=== PATIENT | female | born 1950 | race Caucasian/White ===

== ENCOUNTER → 2017-11-04 | Day surgery (SDC) | payer OTHER ==
--- NOTE | 2017-11-04 13:20 | RAD REPORT ---
EXAM DESCRIPTION: US - Breast Aspiration Inital - 11/04/2017 12:15 pm CLINICAL HISTORY: ICD R92.8. COMPARISON: October 21, 2017 ultrasound. FINDINGS: The prior ultrasound was reviewed. The risks, benefits and alternatives to the procedure were explained to the patient and informed cons ent obtained. Skin and subcutaneous tissues were anesthetized with lidocaine. Under sonographic guidance an 18-gaug e needle was placed into the 4 mm cystic mass within the upper left breast. A small amount of materia l was removed and sent to the laboratory. The mass completely collapsed during the aspiration. IMPRESSION: 1. A 4 mm cystic mass within the upper left breast collapsed during the aspiration. This indicates that it is cystic. The material was sent to the laboratory. This indicates that this almos t certainly represents a benign cyst. 2. It is recommended that the patient have an ultrasound in 6 months to evaluate the previously desc ribed 8 mm isoechoic structure within the upper-outer left breast which could not be confidently rep roduced on real-time imaging by myself and probably represents fibroglandular tissue rather than a ma ss.
== END ==
LOC: DS 10:22
PROVIDERS: ATTEND Family Medicine
DX: R92.8 Other abnormal and inconclusive findings on diagnostic imaging of breast (principal)
CPT/HCPCS: 19000; 88161

== ENCOUNTER 2022-03-09 10:39 | Emergency (ER) | payer OTHER ==
--- OUTSIDE RECORDS SUMMARY | 2022-03-09 10:44 | XMS REPORT | Continuity of Care Document ---
:1950 Author Organization [facility] t Address [address] [place] [address] Care Team Providers Name Role Phone Hill Pinon MD Primary Care Physician Akash Rivera MD Attending Clinician AKASH RIVERA Attending Clinician Unavailable YONATAN JAVIER Attending Clinician Unavailable Yonatan Javier NP Attending Clinician GAY LAKHANI Attending Clinician Unavailable Gay Lakhani MD Attending Clinician Doctor Unassigned, Byars Attending Clinician Unavailable ISMAEL GONZÁLES Attending Clinician Unavailable Ismael Gonzáles MD Attending Clinician Radha Jacome MD Attending Clinician Carlos Rahman Attending Clinician Unavailable Lab, Adc Fam Pob I Attending Clinician Unavailable Jose Goldsmith Attending Clinician Lg Brown MD Attending Clinician Rm, Adc Surg Spec Procedure Attending Clinician Unavailable ISMAEL GONZÁLES Admitting Clinician Unavailable Hill Pinon Admitting Clinician Unavailable Payers Payer Name Policy Type Policy Number Effective Date Expiration Date S ournick Problems Condition Condition Condition Status Onset Resolution Last Treating Co mments Source Name Details Category Date Date Treatment Clinician Date SBO (small SBO (small Disease Active 2019- U nivers bowel bowel 8-20 [place] n[place] 00 [facility] 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 00:00: Hospit a 00 l Cerebrovas Cerebrovas Disease Active 2017-0 M ethodi cular cular 6-13 st accident accident 00:00: Hospit a (CVA) (CVA) 00 l 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 6-06 st L4-L5 L4-L5 00:00: Hospita level level 00 l 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 5-11 st L3-L4 L3-L4 00:00: Hospita level level 00 l 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 00:00: Hosp tracee 00 l History of History of Disease Active 2017-0 M ethodi left left 5-11 st breast breast 00:00: Hospita biopsy biopsy 00 l H/O H/O Disease Active Methodi colostomy colostomy 5-11 st 00:00: Hospita 00 l Allergies, Adverse Reactions, Alerts Allergy Allergy Status Severity Reaction(s) Onset Inactive Treating Comm ents Source Name Type Date Date Clinician SULFAMET DRUG Active Hives Univers HOXAZOLE 9-02 ity of -TRIMETH 00:00: [place] OPRIM 00 Medical Branch Sulfamet Propensi Active Hives Univer s hoxazole ty to 9-02 ity of -Trimeth adverse 00:00: [place] oprim reaction 00 Medical s Branch Latex Propensi Active Rash 2020-0 Univers ty to 8-20 ity of adverse 00:00: [place] reaction 00 Medical s Branch Trimetho Propensi Active Unknown - 2020-0 Sulfameth Univers prim ty to See comments 8-20 oxaloe ity of adverse 00:00: [place] reaction 00 Medical s Branch LATEX DRUG Active Rash 2020-0 Univers INGREDI 8-20 ity of 00:00: [place] 00 Medical Branch TRIMETHO DRUG Active Unknown-Cmnt 2020-0 Un hien PRIM INGREDI 8-20 ity of 00:00: [place] 00 Medical Branch Phenerga Propensi Active Unknown - 2018- Uni vers n Plain ty to See comments 0-09 ity of adverse 00:00: [place] reaction 00 Medical s Branch PHENERGA DRUG Active Unknown-Cmnt 2019- Un hien N PLAIN 0-09 ity of 00:00: [place] 00 Medical Branch Honey Propensi Active Hives 2018-0 Methodi ty to 6-14 st adverse 00:00: Hospita reaction 00 l s to drug Adhesive Propensi Active 2018-0 Causes Method i Tape-Sasha ty to 5-[address] icones adverse 00:00: blister Hospita reaction 00 l s to drug Sulfamet Propensi Active Rash 2018-0 blister Metho di hoxazole ty to 5-10 st -Trimeth adverse 00:00: Hospita oprim reaction 00 l s to drug Latex Propensi Active 2018-0 blisters Method i ty to 5-10 st adverse 00:00: Hospita reaction 00 l s to drug Nitrofur Propensi Active Rash 2018-0 blister Metho di antoin ty to 5-10 st Monohyd/ adverse 00:00: Hospita M-Cryst reaction 00 l s to drug Nitrofur Propensi Active 2018-0 Method i antoin ty to 5-10 st Macrocry adverse 00:00: Hospita stal reaction 00 l s to drug Prometha Propensi Active GI 2018-0 Nausea Method i zine ty to Intolerance 5-[address] adverse 00:00: vomiting Hospita reaction 00 l s to drug prometha DA Active U 2012- [facility] zine HCl 07-06 [place] [facility]: d [facility] Sulfa DA Active U HIVES [facility] (Sulfona 07-06 [place] mide 00:00: d Antibiot 00 Medical [facility]) Center nitrofur DA Active U HIVES [facility] antoin 07-06 [place] 00:00: d 00 Medical Center trimetho DA Active U HIVES [facility] prim 07-06 [place] 00:00: d 00 Medical Center Adhesive DA Active U [facility] Bandage 07-06 [place] 00:00: d 00 [facility] Center latex DA Active U [facility] 07-06 [place] 00:00: d 00 Medical [place] prometha DA Active U SEVERE N/V [facility] zine HCl 07-06 [place] 00:00: d 00 Medical Center Adhesive DA Active U BLISTERS [facility] Bandage 07-06 [place] 00:00: d 00 Medical Center latex DA Active U BREAKS OUT [facility] 07-06 [place] 00:00: d 00 Medical Center Family History Family Member Diagnosis Comments Start Date Stop Date Source Natural mother Thyroid disease [facility] Maternal grandmother Heart disease [facility] Social History Social Habit Start Date Stop Date Quantity Comments Source History SDOH Yarsanism Alcohol Frequency Hospita l History SDKS Yarsanism Alcohol Std Hospital Drinks History SDKS Yarsanism Alcohol Binge Hospital Exposure to 2022-02-18 2022-02-28 Not sure [facility]-CoV-2 00:00:00 18:56:00 [facility] (event) Branch Tobacco use and 2020-03-23 2020-03-23 Smokeless tobacco Un iversity of exposure 00:00:00 00:00:00 non-user [facility] Alcohol intake 2017-12-10 2017-12-10 Current drinker Metho dist 00:00:00 00:00:00 of alcohol Hospital (finding) Alcohol Comment 2017-11-05 2017-11-05 rarely Yarsanism 00:00:00 00:00:00 Hospital Sex Assigned At [birth year] Yarsanism 00:00:00 00:00:00 Hospital Smoking Status Start Date Stop Date Source Never smoked tobacco [facility] Medications Ordered Filled Start Stop Current Ordering Indication Dosage Frequency Signature Comments Components Source Medication Medication Date Date Medication? Clinician (SIG) Name Name doxycycline 2021- Yes [id number] 100mg Take 1 Univers hyclate 100 02-28 [id number] tablet by ity of mg tablet 00:00: 04:59 mouth in [place] as 00 :00 the Medical morning Branch and 1 tablet in the evening. Do all this for 7 days. FENTanyl PF 2022-0 2022- No 50ug 50 mcg, Un hien (SUBLIMAZE 10-24 Intramuscu it y of (PF)) 18:30: 17:40 lar, ONCE, [place] injection 00 :00 1 dose, On Medi kory 50 mcg [place] Branch 10/24/21 at 1330, Routine methocarbam 2021- No 1000mg 1,000 mg, Univers oL 10-24 Oral, ity of (ROBAXIN) 18:30: 17:39 ONCE, 1 [place] tablet [place] :[place] dose, On Medical 1,000 mg [place] Branch 10/24/21 at 1330, DARIO ketorolac 2021- No 15mg 15 mg, Unive rs (TORADOL) 10-24 Intramuscu ity of injection 18:30: 17:40 lar, ONCE, [place] 15 mg 00 :00 1 dose, On Medical [place] Branch 10/24/21 at 1330, Routine
infantry weapons crewmember approving Restricted medication : YONATAN JAVIER gabapentin 2021- No 300mg 300 mg, Un hien (NEURONTIN) 10-24 Oral, ity of capsule 300 18:15: 17:39 ONCE, 1 [place] mg 00 :00 dose, On Medical [facility] Branch 10/24/21 at 1315, DARIO methocarbam 2021- No [id number] 750mg Take 1 Univers oL 750 mg 10-2406 tablet by ity of tablet 00:00: 04:59 mouth 4 [place] 00 :00 (four) Medical times Branch daily for 7 days. ibuprofen 2021- No [id number] 600mg Take 1 Univers (IBU) 600 10-24-06 tablet by ity of mg tablet 00:00: 04:59 mouth [place] 00 :00 every 6 Medical (six) Branch hours for 7 days. ondansetron 2021- No 4mg 4 mg, Slow Univers (ZOFRAN 10-18 IV Push, ity of (PF)) 14:45: 13:42 ONCE, 1 [place] injection 4 00 :00 dose, On Medi kory mg [facility] Branch 10/18/21 at 0945, DARIO ketorolac 2021- No 15mg 15 mg, Unive rs (TORADOL) 10-18 Slow IV ity of injection 14:45: 13:52 Push, [place] 15 mg 00 :00 ONCE, 1 Medical dose, On Branch 10/18/21 at 0945, Routine morpHINE 2021- No 4mg 4 mg, Slow Un hien injection 4 10-18 IV Push, ity of mg 14:45: 14:32 ONCE, 1 [place] 00 :00 dose, On Medical Fri Branch 10/18/21 at 0945, STAT methylPREDN 2021- No 40mg 40 mg, Uni vers ISolone sod 10-18 Intravenou i ty of succ 14:45: 13:46 s, ONCE, 1 [place] (SOLU-MEDRO 00 :00 dose, On Medi kory L (PF)) Fri Branch injection 10/18/21 at 40 mg 0945, STAT lidocaine 5 Yes [id number] Apply one Univers % (700 4-22 patch to ity of mg/patch) 00:00: most [place] patch 00 painful Medical area up to Branch 12 hours a day, as needed for pain. PHARMACIST : dispense one box lidocaine 5 Yes [id number] Apply one Univers % (700 4-22 patch to ity of mg/patch) 00:00: most [place] patch 00 painful Medical area up to Branch 12 hours a day, as needed for pain. PHARMACIST : dispense one box lidocaine 5 Yes [id number] Apply one Univers % (700 4-22 patch to ity of mg/patch) 00:00: most [place] patch 00 painful Medical area up to Branch 12 hours a day, as needed for pain. PHARMACIST : dispense one box predniSONE 2021-2021- No [id number] 40mg Take 2 Univers 20 mg 4- 04-30 tablets by ity of tablet 00:00: 04:59 mouth [place] 00 :00 daily for Medical 7 days. Branch predniSONE 2021-2021- No [id number] 40mg Take 2 Univers 20 mg 4- 04-30 tablets by ity of tablet 00:00: 04:59 mouth [place] 00 :00 daily for Medical 7 days. Branch cyclobenzap 2020-06 Yes [id number] 5mg Take 1 Univers rine 5 mg 0-07 tablet by ity o f tablet 00:00: mouth 3 [place] 00 (three) Medical times Branch daily as needed for Muscle Spasms. ibuprofen 2020-06 Yes [id number] 600mg Take 1 Univers (IBU) 600 0-07 tablet by ity o f mg tablet 00:00: mouth [place] 00 every 6 Medical (six) Branch hours as needed for Pain (scale 4-6). cyclobenzap 2020-06 Yes [id number] 5mg Take 1 Univers rine 5 mg 0-07 tablet by ity o f tablet 00:00: mouth 3 00 (three) Medical times Branch daily as needed for Muscle Spasms. ibuprofen 2020-06 Yes [id number] 600mg Take 1 Univers (IBU) 600 0-07 tablet by ity o f mg tablet 00:00: mouth [place] 00 every 6 Medical (six) Branch hours as needed for Pain (scale 4-6). cyclobenzap 2020-06 Yes [id number] 5mg Take 1 Univers rine 5 mg 0-07 tablet by ity o f tablet 00:00: mouth 3 (three) Medical times Branch daily as needed for Muscle Spasms. ibuprofen 2020-06 Yes [id number] 600mg Take 1 Univers (IBU) 600 0-07 tablet by ity o f mg tablet 00:00: mouth [place] 00 every 6 Medical (six) Branch hours as needed for Pain (scale 4-6). cyclobenzap 2020-06 Yes [id number] 5mg Take 1 Univers rine 5 mg 0-07 tablet by ity o f tablet 00:00: mouth 3 (three) Medical times Branch daily as needed for Muscle Spasms. ibuprofen 2020-06 Yes [id number] 600mg Take 1 Univers (IBU) 600 0-07 tablet by ity o f mg tablet 00:00: mouth [place] 00 every 6 Medical (six) Branch hours as needed for Pain (scale 4-6). cyclobenzap 2020-06 Yes [id number] 5mg Take 1 Univers rine 5 mg 0-07 tablet by ity o f tablet 00:00: mouth 3 00 (three) Medical times Branch daily as needed for Muscle Spasms. ibuprofen 2020-06 Yes [id number] 600mg Take 1 Univers (IBU) 600 0-07 tablet by ity o f mg tablet 00:00: mouth [place] 00 every 6 Medical (six) Branch hours as needed for Pain (scale 4-6). cyclobenzap 2020-06 Yes [id number] 5mg Take 1 Univers rine 5 mg 0-07 tablet by ity o f tablet 00:00: mouth 3 [place] 00 (three) Medical times Branch daily as needed for Muscle Spasms. cyclobenzap 2020-06 Yes [id number] 5mg Take 1 Univers rine 5 mg 0-07 tablet by ity o f tablet 00:00: mouth 3 [place] 00 (three) Medical times Branch daily as needed for Muscle Spasms. ibuprofen 2020-06- No [id number] 600mg Take 1 Univers (IBU) 600 0-07 04-28 tablet by ity of mg tablet 00:00: 00:00 mouth [place] 00 :00 every 6 Medical (six) Branch hours as needed for Pain (scale 4-6). levothyroxi 2019-06 Yes 125ug Take 125 U nivers ne 1-16 mcg by ity of (SYNTHROID) 14:19: mouth [place] 112 mcg 52 every Medical tablet morning. Branch levothyroxi 2019-06 Yes 125ug Take 125 U nivers ne 1-16 mcg by ity of (SYNTHROID) 14:19: mouth [place] 112 mcg 52 every Medical tablet morning. Branch levothyroxi 2019-06 Yes 125ug Take 125 U nivers ne 1-16 mcg by ity of (SYNTHROID) 14:19: mouth [place] 112 mcg 52 every Medical tablet morning. Branch levothyroxi 2019-06 Yes 125ug Take 125 U nivers ne 1-16 mcg by ity of (SYNTHROID) 14:19: mouth [place] 112 mcg 52 every Medical tablet morning. Branch levothyroxi 2019-06 Yes 125ug Take 125 U nivers ne 1-16 mcg by ity of (SYNTHROID) 14:19: mouth [place] 112 mcg 52 every Medical tablet morning. Branch levothyroxi 2019-06 Yes 125ug Take 125 U nivers ne 1-16 mcg by ity of (SYNTHROID) 14:19: mouth [place] 112 mcg 52 every Medical tablet morning. Branch levothyroxi 2019-06 Yes 125ug Take 125 U nivers ne 1-16 mcg by ity of (SYNTHROID) 14:19: mouth [place] 112 mcg 52 every Medical tablet morning. Branch butalbital- 2020-0 Yes [id number] 1{tbl} Take 1 Univers acetaminoph 9-29 tablet by ity of en-caff 00:00: mouth [place] 50-325-40 00 every 6 Medical mg tablet (six) Branch hours as needed for Pain (scale 7-10). ondansetron 2020-0 Yes [id number] 4mg Take 1 Univers (ZOFRAN 9-29 tablet by ity of ODT) 4 mg 00:00: mouth [place] disintegrat 00 every 8 Medic al ing tablet (eight) Branch hours as needed for Nausea and Vomiting (N/V). butalbital- 2020-0 Yes [id number] 1{tbl} Take 1 Univers acetaminoph 9-29 tablet by ity of en-caff 00:00: mouth [place] 50-325-40 00 every 6 Medical mg tablet (six) Branch hours as needed for Pain (scale 7-10). ondansetron 2020-0 Yes [id number] 4mg Take 1 Univers (ZOFRAN 9-29 tablet by ity of ODT) 4 mg 00:00: mouth [place] disintegrat 00 every 8 Medic al ing tablet (eight) Branch hours as needed for Nausea and Vomiting (N/V). butalbital- 2020-0 Yes [id number] 1{tbl} Take 1 Univers acetaminoph 9-29 tablet by ity of en-caff 00:00: mouth [place] 50-325-40 00 every 6 Medical mg tablet (six) Branch hours as needed for Pain (scale 7-10). ondansetron 2020-0 Yes [id number] 4mg Take 1 Univers (ZOFRAN 9-29 tablet by ity of ODT) 4 mg 00:00: mouth [place] disintegrat 00 every 8 Medic al ing tablet (eight) Branch hours as needed for Nausea and Vomiting (N/V). butalbital- 2020-0 Yes [id number] 1{tbl} Take 1 Univers acetaminoph 9-29 tablet by ity of en-caff 00:00: mouth [place] 50-325-40 00 every 6 Medical mg tablet (six) Branch hours as needed for Pain (scale 7-10). ondansetron 2020-0 Yes [id number] 4mg Take 1 Univers (ZOFRAN 9-29 tablet by ity of ODT) 4 mg 00:00: mouth [place] disintegrat 00 every 8 Medic al ing tablet (eight) Branch hours as needed for Nausea and Vomiting (N/V). butalbital- 2020-0 Yes [id number] 1{tbl} Take 1 Univers acetaminoph 9-29 tablet by ity of en-caff 00:00: mouth [place] 50-325-40 00 every 6 Medical mg tablet (six) Branch hours as needed for Pain (scale 7-10). ondansetron 2020-0 Yes [id number] 4mg Take 1 Univers (ZOFRAN 9-29 tablet by ity of ODT) 4 mg 00:00: mouth [place] disintegrat 00 every 8 Medic al ing tablet (eight) Branch hours as needed for Nausea and Vomiting (N/V). butalbital- 2020-0 Yes [id number] 1{tbl} Take 1 Univers acetaminoph 9-29 tablet by ity of en-caff 00:00: mouth [place] 50-325-40 00 every 6 Medical mg tablet (six) Branch hours as needed for Pain (scale 7-10). ondansetron 2020-0 Yes [id number] 4mg Take 1 Univers (ZOFRAN 9-29 tablet by ity of ODT) 4 mg 00:00: mouth [place] disintegrat 00 every 8 Medic al ing tablet (eight) Branch hours as needed for Nausea and Vomiting (N/V). butalbital- 2020-0 Yes [id number] 1{tbl} Take 1 Univers acetaminoph 9-29 tablet by ity of en-caff 00:00: mouth [place] 50-325-40 00 every 6 Medical mg tablet (six) Branch hours as needed for Pain (scale 7-10). ondansetron 2020-0 Yes [id number] 4mg Take 1 Univers (ZOFRAN 9-29 tablet by ity of ODT) 4 mg 00:00: mouth [place] disintegrat 00 every 8 Medic al ing tablet (eight) Branch hours as needed for Nausea and Vomiting (N/V). cyanocobala 2020-0 Yes 1000ug Inject Un hien min, 9-25 1,000 mcg ity of vitamin 14:22: as [place] B-12, (B-12 38 directed Medi kory COMPLIANCE) once every Br anch 1,000 month. mcg/mL Taken the injection beginning of the month zolpidem 10 2020-0 Yes 5mg Take 5 mg U nivers mg tablet 9-25 by mouth ity of 14:22: at bedtime [place] 38 as needed Medical for Branch Insomnia. cyanocobala 2020-0 Yes 1000ug Inject Un hien min, 9-25 1,000 mcg ity of vitamin 14:22: as [place] B-12, ( 38 directed Medi kory COMPLIANCE) once every Br anch 1,000 month. mcg/mL Taken the injection beginning of the month zolpidem 10 2020-0 Yes 5mg Take 5 mg U nivers mg tablet 9-25 by mouth ity of 14:22: at bedtime [place] as needed Medical for Branch Insomnia. cyanocobala 2020-0 Yes 1000ug Inject Un hien min, 9-25 1,000 mcg ity of vitamin 14:22: as [place] B-12, ( 38 directed Medi kory COMPLIANCE) once every Br anch 1,000 month. mcg/mL Taken the injection beginning of the month zolpidem 10 2020-0 Yes 5mg Take 5 mg U nivers mg tablet 9-25 by mouth ity of 14:22: at bedtime [place] as needed Medical for Branch Insomnia. cyanocobala 2020-0 Yes 1000ug Inject Un hien min, 9-25 1,000 mcg ity of vitamin 14:22: as [place] B-12, (B12 38 directed Medi kory COMPLIANCE) once every Br anch 1,000 month. mcg/mL Taken the injection beginning of the month zolpidem 10 2020-0 Yes 5mg Take 5 mg U nivers mg tablet 9-25 by mouth ity of 14:22: at bedtime [place] as needed Medical for Branch Insomnia. cyanocobala 2020-0 Yes 1000ug Inject Un hien min, 9-25 1,000 mcg ity of vitamin 14:22: as [place] B-12, (B-12 38 directed Medi kory COMPLIANCE) once every Br anch 1,000 month. mcg/mL Taken the injection beginning of the month zolpidem 10 2020-0 Yes 5mg Take 5 mg U nivers mg tablet 9-25 by mouth ity of 14:22: at bedtime [place] as needed Medical for Branch Insomnia. cyanocobala 2020-0 Yes 1000ug Inject Un hien min, 9-25 1,000 mcg ity of vitamin 14:22: as [place] B-12, (B 38 directed Medi kory COMPLIANCE) once every Br anch 1,000 month. mcg/mL Taken the injection beginning of the month zolpidem 10 2019-0 Yes 5mg Take 5 mg U nivers mg tablet 925 by mouth ity of 14:22: at bedtime [place] [id number] as needed Medical for Branch Insomnia. cyanocobala 2020-0 Yes 1000ug Inject Un hien min, 9-25 1,000 mcg ity of vitamin 14:22: as [place] B-12, (B12 38 directed Medi kory COMPLIANCE) once every Br anch 1,000 month. mcg/mL Taken the injection beginning of the month zolpidem 10 2019-0 Yes 5mg Take 5 mg U nivers mg tablet 25 by mouth ity of 14:22: at bedtime [place] [id number] as needed Medical for Branch Insomnia. phenazopyri 2020-0 Yes [id number] 200mg Take 2 Univers dine 9-17 tablets by ity of (PYRIDIUM) 00:00: mouth 3 [place] 100 mg 00 (three) Medical tablet times Branch daily. phenazopyri 2020-0 Yes 200mg Take 2 Univers dine 9-17 tablets by ity of (PYRIDIUM) 00:00: mouth 3 [place] 100 mg 00 (three) Medical tablet times Branch daily. phenazopyri 2020-0 Yes 200mg Take 2 Univers dine 9-17 tablets by ity of (PYRIDIUM) 00:00: mouth 3 [place] 100 mg 00 (three) Medical tablet times Branch daily. phenazopyri 2020-0 Yes 200mg Take 2 Univers dine 9-17 tablets by ity of (PYRIDIUM) 00:00: mouth 3 [place] 100 mg 00 (three) Medical tablet times Branch daily. phenazopyri 2020-0 Yes 200mg Take 2 Univers dine 9-17 tablets by ity of (PYRIDIUM) 00:00: mouth 3 [place] 100 mg 00 (three) Medical tablet times Branch daily. phenazopyri 2020-0 Yes 200mg Take 2 Univers dine 9-17 tablets by ity of (PYRIDIUM) 00:00: mouth 3 [place] 100 mg 00 (three) Medical tablet times [place] daily. phenazopyri 2020-0 Yes [id number] 200mg Take 2 Univers dine 9-17 tablets by ity of (PYRIDIUM) 00:00: mouth 3 [place] 100 mg 00 (three) Medical tablet times [place] daily. conjugated 2019-0 Yes [id number] 1g Insert 1 g Univers estrogens 9-14 into ity of 0.625 00:00: vagina [place] mg/gram 00 SEE-INSTRU Medica l vaginal CTIONS. Branch cream Apply small amount to vaginal opening and labia twice weekly conjugated 2019-0 Yes [id number] 1g Insert 1 g Univers estrogens 9-14 into ity of 0.625 00:00: vagina [place] mg/gram 00 SEE-INSTRU Medica l vaginal CTIONS. Branch cream Apply small amount to vaginal opening and labia twice weekly conjugated 2019-0 Yes [id number] 1g Insert 1 g Univers estrogens 9-14 into ity of 0.625 00:00: vagina [place] mg/gram 00 SEE-INSTRU Medica l vaginal CTIONS. Branch cream Apply small amount to vaginal opening and labia twice weekly conjugated 2019-0 Yes [id number] 1g Insert 1 g Univers estrogens 9-14 into ity of 0.625 00:00: vagina [place] mg/gram 00 SEE-INSTRU Medica l vaginal CTIONS. Branch cream Apply small amount to vaginal opening and labia twice weekly conjugated 2019-0 Yes [id number] 1g Insert 1 g Univers estrogens 9-14 into ity of 0.625 00:00: vagina [place] mg/gram 00 SEE-INSTRU Medica l vaginal CTIONS. Branch cream Apply small amount to vaginal opening and labia twice weekly conjugated 2019-0 Yes [id number] 1g Insert 1 g Univers estrogens 9-14 into ity of 0.625 00:00: vagina [place] mg/gram 00 SEE-INSTRU Medica l vaginal CTIONS. Branch cream Apply small amount to vaginal opening and labia twice weekly conjugated 2019-0 Yes [id number] 1g Insert 1 g Univers estrogens 9-14 into ity of 0.625 00:00: vagina [place] mg/gram 00 SEE-INSTRU Medica l vaginal CTIONS. Branch cream Apply small amount to vaginal opening and labia twice weekly levothyroxi 2017-0 Yes 112ug QD Take 112 M ethodi ne 6-[address] (SYNTHROID, 13:41: mouth Hospi ta LEVOXYL) 57 every l 112 mcg morning. tablet pramipexole 2018-0 Yes 1mg QD Take 1 mg M ethodi (MIRAPEX) 1 6-[address] MG tablet 13:41: nightly. Hosp tracee 57 l zolpidem 2018-0 Yes 5mg QD Take 5 mg Meth shea (AMBIEN) 5 6-[address] MG tablet 13:41: nightly as Ho spita 57 needed for l sleep. docusate 2018-0 Yes 1{tbl} Q.5D Take 1 Metho di sodium 6-[address] (STOOL 13:41: mouth 2 Hospita SOFTENER 57 (two) l ORAL) times a day. Lactobacill 2018-0 Yes 1{packe Q.5D Take 1 M ethodi us 6-15 t} packet by st acidoph-L.b 13:41: mouth 2 Hos joe ulgar 57 (two) l (LACTINEX) times a 100 million day. cell tablet multivitami 2018-0 Yes 1{tbl} QD Take 1 Me thodi n 6-[address] (THERAGRAN) 13:41: mouth Hospi ta tablet 57 daily. l levothyroxi 2018-0 Yes 112ug QD Take 112 M ethodi ne 6-[address] (SYNTHROID, 13:41: mouth Hospi ta LEVOXYL) 57 every l 112 mcg morning. tablet pramipexole 2018-0 Yes 1mg QD Take 1 mg M ethodi (MIRAPEX) 1 6-[address] MG tablet 13:41: nightly. Hosp tracee 57 l zolpidem 2018-0 Yes 5mg QD Take 5 mg Meth shea (AMBIEN) 5 6-[address] MG tablet 13:41: nightly as Ho spita 57 needed for l sleep. docusate 2018-0 Yes 1{tbl} Q.5D Take 1 Metho di sodium 6-[address] (STOOL 13:41: mouth 2 Hospita SOFTENER 57 (two) l ORAL) times a day. Lactobacill 2018-0 Yes 1{packe Q.5D Take 1 M ethodi us 6-15 t} packet by st acidoph-L.b 13:41: mouth 2 Hos joe ulgar 57 (two) l (LACTINEX) times a 100 million day. cell tablet multivitami Yes 1{tbl} QD Take 1 Me thodi n 6-[address] (THERAGRAN) 13:41: mouth Hospi ta tablet 57 daily. l gabapentin Yes 600mg QD Take 600 Me thodi (NEURONTIN) 5-[address] 600 mg 00:00: mouth Hospita tablet 00 nightly. l gabapentin Yes 600mg QD Take 600 Me thodi (NEURONTIN) 5-[address] 600 mg 00:00: mouth Hospita tablet 00 nightly. l Immunizations Ordered Filled Immunization Date Status Comments [facility] Immunization Name Name TDAP 2022-02-28 [facility] 00:00:00 [facility] Vital Signs Vital Name Observation Time Observation Value Comments Source Systolic blood 2022-02-28 23:57:00 135 mm[Hg] Univer sity [facility] Diastolic blood 2022-02-28 23:57:00 77 mm[Hg] [facility] 2022-02-28 23:57:00 101 /min General acute hospital Body temperature 2022-02-28 23:57:00 37 Suzi [facility] Respiratory rate 2022-02-28 23:57:00 18 /min [facility] Body height 2022-02-28 23:57:00 152.4 cm General acute hospital Body weight 2022-02-28 23:57:00 84.705 kg General acute hospital BMI 2022-02-28 23:57:00 36.47 kg/m2 General acute hospital Oxygen saturation in 2022-02-28 23:57:00 97 /min [facility] Arterial blood by [place] [facility] Children Pulse oximetry Branch Systolic blood 2021-10-24 18:34:00 147 mm[Hg] Univer sity [facility] Diastolic blood 2021-10-24 18:34:00 96 mm[Hg] [facility] 2021-10-24 18:34:00 73 /min General acute hospital Respiratory rate 2021-10-24 18:34:00 18 /min [facility] Oxygen saturation in 2021-10-24 18:34:00 98 /min University of Arterial blood by [place] [employer] Pulse oximetry Branch Body temperature 2021-10-24 16:09:00 36.83 Suzi [facility] Body height 2021-10-24 16:09:00 152.4 cm [facility] Body weight 2021-10-24 16:09:00 79.833 kg [facility] BMI 2021-10-24 16:09:00 34.37 kg/m2 [facility] Systolic blood 2021-10-18 14:00:00 169 mm[Hg] Univer sity [facility] Diastolic blood 2021-10-18 14:00:00 79 mm[Hg] Unive rsity [facility] Heart rate 2021-10-18 14:00:00 72 /min [facility] Respiratory rate 2021-10-18 14:00:00 12 /min [facility] Oxygen saturation in 2021-10-18 14:00:00 96 /min University of Arterial blood by [facility] Pulse oximetry Branch Body temperature 2021-10-18 12:43:00 35.83 Suzi [facility] Body height 2021-10-18 12:43:00 152.4 cm [facility] Body weight 2021-10-18 12:43:00 79.833 kg [facility] BMI 2021-10-18 12:43:00 34.37 kg/m2 [facility] Systolic blood 2021-05-10 17:34:00 172 mm[Hg] Univer [facility]ity [facility] Diastolic blood 2021-05-10 17:34:00 91 mm[Hg] Unive rsity [facility] Heart rate 2021-05-10 17:34:00 74 /min [facility] Body temperature 2021-05-10 17:33:00 36.67 Suzi [facility] Respiratory rate 2021-05-10 17:33:00 16 /min [facility] Body weight 2021-05-10 17:33:00 81.738 kg [facility] BMI 2021-05-10 17:33:00 35.19 kg/m2 Universi ty [facility] Oxygen saturation in 2021-05-10 17:33:00 99 /min University Arterial blood by [facility] Pulse oximetry Branch Procedures Procedure Date / Time Performed Performing Clinician Jerry e TDAP VACCINE, >11 YRS, 2022-03-01 00:02:47 [facility] URINALYSIS 2021-10-24 16:21:00 Singer [facility] o f [facility] LIPASE 2021-10-18 13:06:00 Gay Lakhani [facility] COMP. METABOLIC PANEL 2021-10-18 13:06:00 Donna Marlboro [facility] ([id number]) [facility] CBC WITH DIFF 2021-10-18 13:06:00 Gay Lakhani [facility] URINALYSIS 2021-10-18 13:06:00 Gay Lakhani [facility] NOTICE OF PRIVACY 2021-10-18 12:41:39 Doctor Unassigned, No [facility] PRACTICES Name [facility] CONSENT/REFUSAL FOR 2021-10-18 12:34:32 Doctor Unassigned, No [facility] DIAGNOSIS AND [facility] TREATMENT Plan of Care Planned Activity Planned Date Details Comments Source Future Scheduled 2022-02-26 HEPATITIS B VACCINES Met [facility] Test 03:19:32 (1 of 3 - 3-dose series) [code = HEPATITIS B VACCINES (1 of 3 - 3-dose series)] Future Scheduled 2022-02-26 COVID-19 VACCINE (#1) [facility] Test 03:19:32 [code = COVID-19 VACCINE (#1)] Future Scheduled 2022-02-26 BREAST CANCER [facility] Test 03:19:32 SCREENING [code = BREAST CANCER SCREENING] Future Scheduled 2022-02-26 COLONOSCOPY SCREENING [facility] Test 03:19:32 [code = COLONOSCOPY SCREENING] Future Scheduled 2022-02-26 SHINGLES VACCINES (1 Met [facility] Test 03:19:32 of 2) [code = SHINGLES VACCINES (1 of 2)] Future Scheduled 2022-02-26 65+ PNEUMOCOCCAL [facility] Test 03:19:32 VACCINE (1 - PCV) [code = 65+ PNEUMOCOCCAL VACCINE (1 - PCV)] Future Scheduled 2022-02-26 INFLUENZA [facility]ACCINE [facility] 03:19:32 [code = INFLUENZA VACCINE] Future Scheduled 2021-06-19 COVID-19 [facility]ACCINE (1) [facility] 02:39:11 [code = COVID-19 VACCINE (1)] Future Scheduled 2021-06-19 BREAST CANCER [facility] Test 02:39:11 SCREENING [code = BREAST CANCER SCREENING] Future Scheduled 2021-06-19 [facility] 02:39:11 [code = COLONOSCOPY SCREENING] Future Scheduled 2021-06-19 SHINGLES [facility]ACCINES (#1) [facility] Test 02:39:11 [code = SHINGLES VACCINES (#1)] Future Scheduled 2021-06-19 65+ [facility]OCOCCAL [facility] Test 02:39:11 VACCINE (1 of 1 - PPSV23) [code = 65+ PNEUMOCOCCAL VACCINE (1 of 1 - PPSV23)] Future Scheduled 2021-06-19 [facility]UENZA [facility]ACCINE [facility] Test 02:39:11 [code = INFLUENZA VACCINE] Encounters Start End Encounter Admission Attending Care Care Encounter Source Date/Time Date/Time Type Type Clinicians Facility Department ID 2022-02-28 2022-02-28 Urgent Miguel [facility] [id number] Univers 19:00:00 19:20:00 Care [facility] [id number] it y [facility] 4.2.7.2.686 Deep as JOSI?BLEA [phone] [address] MEDICAL OFFICE BUILDING 2022-02-28 2022-02-28 Outpatient R [facility] [id number] Univers 19:00:00 19:00:00 [id number] [facility] 2022-02-28 2022-02-28 [facility] [id number] Univers 19:00:00 19:00:00 AKASH [facility] 2021-10-24 2021-10-24 Emergency X YAYA [facility] ERT [id number] Univers 11:19:00 13:38:00 YONATAN [facility] 2021-10-24 2021-10-24 Emergency Drever, [facility] [id number] Univers 11:19:00 13:38:00 Yonatan BILLY [id number] ity [facility] 4.2.7.2.686 [facility] [id number] [place] [id number] Branch 2021-10-18 2021-10-18 Emergency X [facility] ERT [id number] Univers 07:39:00 10:02:00 GAY ity [facility] 2021-10-18 2021-10-18 Emergency [facility] [id number] Univers 07:39:00 10:02:00 Gay IBLLY [id number] ity of [facility] 4.2.7.2.686 [facility] [id number] [facility] 084 Branch 2021-10-18 2021-10-18 Orders Doctor RADHA [id number] Univers 00:00:00 00:00:00 Only Unassigned, BELEN [id number] [facility] 4.2.7.2.686 Deep [phone] [facility] 009 Branch 2021-10-15 2021-10-15 [facility]patient [facility] [id number] Univers 13:00:00 13:00:00 ISMAEL [id number] ity [facility] 2021-10-15 2021-10-15 Outpatient [facility] [id number] Univers 00:00:00 00:00:00 ISMAEL ity [facility] 2021-10-10 2021-10-10 Outpatient [facility] [id number] Univers 17:34:44 23:59:00 ISMAEL ity [facility] 2021-10-10 2021-10-10 [facility] [id number] Univers 17:34:44 23:59:00 Encounter Ismael S SPECIALTY [id number] ity of [facility] 4.2.7.2.686 [facility] AT [id number] Tn dical VICTORY [address] [facility] 2021-10-10 2021-10-10 Outpatient R ELIECER, [facility] [id number] 5P-20 Univers 00:00:00 00:00:00 ISMAEL [id number] ity of [facility] 2021-05-10 2021-05-10 [facility] 1.2.840.114 [id number] Univers 11:17:34 12:07:47 Visit Radha BILLY 350.1.13.10 i ty of [facility] 4.2.7.2.686 Lorraine villar PROFESSIO [id number] Tn dical NAL 188 [facility] 2020-07-24 2020-07-17 Inpatient STACY Colmenares MDAY [id number] [facility] 11:30:00 12:15:00 Carlos 82 [facility] 2020-06-26 2020-07-12 Inpatient JULIANE ColmenaresMN MDAY [id number] [facility] 06:44:00 20:09:21 Carlos 74 [facility] 2020-07-10 2020-07-10 Laboratory Lab, [facility] [id number] 16:18:49 16:38:49 Only Fam Pob I Health 350.1.13.10 Karthikeyan 4.2.7.2.686 Professio [phone] nal 044 Office [address] One 2020-05-16 2020-05-16 [facility] 1.2.840.114 [id number] 15:59:17 23:59:00 Encounter Tami Billy [id number] [place] 4.2.7.2.686 [place] [id number] 2020-05-14 2020-05-14 Office Lg Brown [facility] 1.2.840.114 [id number] 14:07:10 16:11:34 Visit , Pam Surg Spec Procedure Karthikeyan 3 50.1.13.10 Kimberley 4.2.7.2.686 Professio [id number] [facility] 204 Building 2020-05-14 2020-05-14 Telephone Kevin GAWAYNE 1.2.840.114 [id number] 00:00:00 00:00:00 Lg Billy 350.1.13.10 Kimberley 4.2.7.2.686 Profprashant [id number] [facility] 188 Building 2020-05-14 2020-05-14 Orders Doctor RADHA 1.2.840.114 [id number] 00:00:00 00:00:00 Only Unassigned, BELEN 350.1.13.10 [facility] 4.2.7.2.686 [id number] [id number] Results Test Description Test Time Test Comments Results Result Comments Source COMP. METABOLIC PANEL (67793) 2021-10-18 13:29:12 Test Item Value Reference Range Interpretation Comme nts NA (test code = 1747148505) 142 mmol/L 135-145 K (test code = 0637133064) 4.4 mmol/L 3.5-5.0 CL (test code = 1440243456) 103 mmol/L 98-108 CO2 TOTAL (test code = 29 mmol/L 23-31 2822225806) AGAP (test code = 4457115131) 2-16 BUN (test code = 9569652918) 22 mg/dL 7-23 GLUCOSE (test code = 5579592326) 104 mg/dL 70-110 CREATININE (test code = 0.79 mg/dL 0.50-1.04 9070359657) TOTAL BILI (test code = 0.4 mg/dL 0.1-1.3 5757589371) CALCIUM (test code = 3602314528) 9.3 mg/dL 8.6-10.6 T PROTEIN (test code = 7.0 g/dL 6.3-8.2 3720192774) ALBUMIN (test code = 2847065560) 4.5 g/dL 3.5-5.0 ALK PHOS (test code = 2904543507) 67 U/L 34-122 ALTv (test code = 1742-6) 13 U/L 5-35 AST(SGOT) (test code = 20 U/L 13-40 2802440639) eGFR (test code = 5938548363) mL/min/1.73m2 TICO (test code = TICO) Association of Glomerular Filtration Rate (GFR) and Staging of Kidney Disease* + +--------- + ----+| GFR (mL/min/1.73 m2) ?| With Kidney Damage ?| ?Without Kidney Damage+ +--- + +| ?>90 ?| ?Stage one ?| ? Normal ?+ +-------- + -----+| ?60-89 ?| ?Stage two ?| ? Decreased GFR ? + +--------- + ----+| ?30-59 ?| ?Stage three ?| ? Stage three ? + +--------- + ----+| ?15-29 ?| ?Stage four ? | ? Stage four ?+ +-------- + -----+| ?<15 (or dialysis) ? ?| ?Stage five ? | ? Stage five ?+ +-------- + -----+ *Each stage assumes the associated GFR level has been in effect for at least three months. ?Stages 1 to 5, with or without kidney disease, indicate chronic kidney disease. Notes: Determination of stages one and two (with eGFR >59mL/min/1.73 m2) requires estimation of kidney damage for at least three months as defined by structural or functional abnormalities of the kidney, manifested by either:Pathological abnormalities or Markers of kidney damage (including abnormalities in the composition of the blood or urine or abnormalities in imaging tests). [facility] 13:28:52 Test Item Value Reference Range Interpretation Comments LIPASE (test code = 5624820918) 61 U/L 0-220 Lab Interpretation (test code = Normal 08809-7) [facility] WITH [id number] 13:18:11 Test Item Value Reference Range Interpretation Comments WBC (test code = See_Comment [Automated message] 6690-2) The system [employer] generated this result transmitted ref erence range: 4.30 - 1 1.10 10*3/?L. The re ference range was not u sed to interpret this result as normal/abnor mal. RBC (test code = See_Comment [Automated message] 789-8) The system [employer] generated this result transmitted ref erence range: 3.93 - 5 .25 10*6/?L. The re ference range was not u sed to interpret this result as normal/abnor mal. HGB (test code = 13.8 g/dL 11.6-15.0 718-7) HCT (test code = 42.7 % 35.7-45.2 4544-3) MCV (test code = 92.8 fL 80.6-95.5 787-2) MCH (test code = 30.0 pg 25.9-32.8 785-6) MCHC (test code = 32.3 g/dL 31.6-35.1 786-4) RDW-SD (test code 46.3 fL 39.0-49.9 = 92999-6) RDW-CV (test code 13.5 % 12.0-15.5 = 788-0) PLT (test code = See_Comment [Automated message] 777-3) The system [employer] generated this result transmitted ref erence range: 166 - 35 8 10*3/?L. The re ference range was not u sed to interpret this result as normal/abnor mal. MPV (test code = 9.8 fL 9.5-12.9 32531-4) NRBC/100 WBC (test See_Comment [Automat ed message] code = 0830555351) The syste m which generated this result transmitted ref erence range: 0.0 - 10 .0 /100 WBCs. The refer ence range was not u sed to interpret this result as normal/abnor mal. NRBC x10^3 (test <0.01 See_Comment [Automated message] code = 1255468045) The syste m which generated this result transmitted ref erence range: 10*3/?L. The reference range was not used to interpr et this result as normal/abnormal . GRAN MAT (NEUT) % 68.4 % (test code = 770-8) IMM GRAN % (test 0.40 % code = 4660987465) LYMPH % (test code 19.0 % = 736-9) MONO % (test code 6.7 % = 5905-5) EOS % (test code = 4.8 % 713-8) BASO % (test code 0.7 % = 706-2) GRAN MAT 5.03 10*3/uL 1.88-7.09 x10^3(ANC) (test code = 7613858736) IMM GRAN x10^3 0.03 10*3/uL 0.00-0.06 (test code = 5671143707) LYMPH x10^3 (test 1.40 10*3/uL 1.32-3.29 code = 731-0) MONO x10^3 (test 0.49 10*3/uL 0.33-0.92 code = 742-7) EOS x10^3 (test 0.35 10*3/uL 0.03-0.39 code = 711-2) BASO x10^3 (test 0.05 10*3/uL 0.01-0.07 code = 704-7) [facility] METABOLIC [id number] 15:53:00 Test Item Value Reference Range Interpretation Comments SODIUM (test code = NA) 136 mmol/l 134.0-147.0 N POTASSIUM (test code = K) 3.6 mmol/L 3.6-5.2 N CHLORIDE (test code = CL) 102 mmol/l 98.0-107.0 N CARBON DIOXIDE (test code = CO2) 25.0 mmol/l 21.0-33.0 N ANION GAP (test code = GAP) 12.6 0-20 N GLUCOSE (test code = GLU) 130 mg/dl 70.0-110.0 H BLOOD UREA NITROGEN (test code = 26 mg/dl 7.0-18.0 H BUN) CREATININE (test code = CREAT) 0.79 mg/dL 0.60-1.30 N GFR NON BLACK (test code = 76 mL/min 70-80 N GFRNONBLACK) GFR BLACK (test code = GFRBLACK) 92 mL/min 85-97 N CALCIUM (test code = CA) 8.9 mg/dl 8.0-10.5 N COVID 19 Asymptomatic IH [id number] 15:45:00 Test Item Value Reference Range Interpretation Comments COVID 19 NEGATIVE NEGATIVE Negative result s should be Asymptomatic IH AG treated a s presumptive and (test code = ifinconsistent with COVNONPUIAG) clinical signs and symptoms, or ne cessaryfor patient managem ent, should be tested with an alternativemole cular assay. Negative results do not preclude [id number]-SaT-[id number] tion and should not be u sed as the sole basis forp atient management deci sions. Negative result s should beconsidered in the context of a pa triston's recent exposure s,history, presence of cli nical signs and symptoms consistentwith COVID-19. Specimen comments: If not done [facility] W/AUTO [id number] 15:43:00 Test Item Value Reference Range Interpretation Comments WHITE BLOOD CELL (test code = 7.4 K/mm3 4.5-11.0 N WBC) RED BLOOD CELL (test code = 4.36 M/mm3 3.80-5.20 N RBC) HEMOGLOBIN (test code = HGB) 12.4 gm/dL 12.0-16.0 N HEMATOCRIT (test code = HCT) 40.8 % 36.0-48.0 N MEAN CELL VOLUME (test code = 93.6 UM3 82.0-99.0 N MCV) MEAN CELL HGB (test code = MCH) 28.4 UUG 25.5-32.5 N MEAN CELL HGB CONCETRATION 30.4 gm/dL 29.0-35.5 N (test code = MCHC) RED CELL DISTRIBUTION WIDTH 14.4 % 11.5-15.0 N (test code = RDW) RED CELL DISTRIBUTION WIDTH SD 49.1 fL 34.8-50.2 N (test code = RDW-SD) PLATELET COUNT (test code = 285 K/mm3 150-400 N PLT) MEAN PLATELET VOLUME (test code 10.1 fl 7.4-10.4 N = MPV) NEUTROPHIL % (test code = NT%) 74.0 % 49.0-76.0 N IMMATURE GRANULOCYTE % (test 0.4 % 0.0-0.4 N code = IG%) LYMPHOCYTE % (test code = LY%) 13.4 % 23.0-38.0 L MONOCYTE % (test code = MO%) 6.8 % 1.0-10.0 N EOSINOPHIL % (test code = EO%) 4.9 % 1.0-5.0 N BASOPHIL % (test code = BA%) 0.5 % 0.0-1.0 N NUCLEATED RBC % (test code = 0.0 % 0.0-0.1 N NRBC%) NEUTROPHIL # (test code = NT#) 5.5 K/mm3 2.4-6.3 N IMMATURE GRANULOCYTE # (test 0.03 x10 3/uL 0.00-0.07 N code = IG#) LYMPHOCYTE # (test code = LY#) 1.0 K/mm3 1.2-4.0 L MONOCYTE # (test code = MO#) 0.5 K/mm3 0.0-0.6 N EOSINOPHIL # (test code = EO#) 0.4 K/MM3 0.0-0.7 N BASOPHIL # (test code = BA#) 0.0 K/mm3 0.0-0.2 N NUCLEATED RBC # (test code = 0.00 X10 3uL 0.00-0.01 N NRBC#) COVID 19 Asymptomatic IH [id number] 07:56:00 Test Item Value Reference Range Interpretation Comments COVID 19 Asymptomatic IH POSITIVE NEGATIVE A BY [id number] 06/26/20 AG (test code = 0756 COVNONPUIAG) Specimen comments: If not done this admissionComments to Shipping Hand: RAPID COVID"
[2022-03-09 11:36] LABS: Urine Blood Trace-intact (Negative); Urine Glucose Negative (Negative); Urine Protein Negative (Negative); Urine Specific Gravity >=1.030 (1.005-1.030); Urine pH 5.5 (5.0-7.0)
[2022-03-09] MEDS ORDERED: ONDANSETRON 4 MG/2 ML VIAL ONE (11:38)
[2022-03-09 11:55] LABS: Absolute Lymphocytes (CBC) 1.1 K/uL (0.7-4.9); Hematocrit 39.2 % (36.0-45.0); Lymphocytes % 16.3 % (15.3-44.8); MCV 86.6 fL (80-100); MPV 7.7 fL (7.6-11.3); RBC Red Blood Cell Count 4.52 M/uL (3.86-4.86)
[2022-03-09] MEDS ORDERED: NA CHLORIDE 0.9% 1,000 ML ONE (11:55)
[2022-03-09] MEDS ORDERED: MORPHINE 2 MG/ML SYR ONE (11:55)
[2022-03-09 12:08] LABS: Albumin 3.8 g/dL (3.4-5.0); Potassium 3.9 mmol/L (3.5-5.1)
[2022-03-09 12:14] LABS: Bilirubin Total 0.3 mg/dL (0.2-1.0); Protein, Total 7.1 g/dL (6.4-8.2); Troponin High Sensitivity 7.4 pg/mL (<58.9)
--- NOTE | 2022-03-09 12:40 | RAD REPORT ---
EXAM DESCRIPTION: CTAbdomen Pelvis W Contrast - 03/09/2022 12:26 pm CLINICAL HISTORY: Abdominal pain. df COMPARISON: Abdomen Pelvis W Contrast dated 11/24/2019; Abdomen Pelvis W Contrast dated 6; Abdomen Pelvis W Contrast dated 04/05/2016; CT ABD PELVIS W CONTRAST dated 11/29/2014 TECHNIQUE: Biphasic CT imaging of the abdomen and pelvis was performed with 100 ml non-ionic IV cont rast. All CT scans are performed using dose optimization technique as appropriate and may include automated exposure control or mA/KV adjustment according to patient size. FINDINGS: Mild linear atelectasis is seen in both lung bases.Small hiatal hernia. The liver, spleen, pancreas, adrenal glands and kidneys are within normal limits. No bowel obstruction, free air, free fluid or abscess. Mild sigmoid diverticulosis coli without diver ticulitis. The appendix is normal. Small fat containing umbilical hernia. No evidence of significant lymphadenopathy. Moderate lumbar degenerative changes with hardware in place. IMPRESSION: No acute intra-abdominal or pelvic finding. Scattered diverticulosis.
--- NOTE | 2022-03-09 12:46 | EDPHYS ---
Physician Documentation [facility] Name: Scarlet Simmons Age: 72 yrs Sex: Female : 1950 Arrival Date: 03/09/2022 Time: 10:43 Bed 19 Private MD: Hill Pinon ED Physician Meet Roth HPI: 03/09 11:33 This 72 yrs old Female presents to ER via Ambulatory with complaints of jl9 Abdominal Pain x weeks. Patient reports last BM 4 days ago .. 11:33 The patient presents with abdominal pain in the right upper quadrant, right lower jl9 quadrant. Onset: The symptoms/episode began/occurred 2 week(s) ago. The symptoms do not radiate. Associated signs and symptoms: Pertinent positives: nausea. The symptoms are described as dull. Modifying factors: The symptoms are alleviated by nothing, the symptoms are aggravated by nothing. Severity of pain: in the emergency department the pain is a 5 / 10. The patient has not experienced similar symptoms in the past. Historical: - Allergies: 11:13 Latex, Natural Rubber; jl7 11:13 Nitrofurantoin Macrocrystal; jl7 11:13 Phenergan; jl7 11:13 sulfamethoxazole-trimethoprim; jl7 - Home Meds: 11:13 levothyroxine oral [Active]; jl7 - PMHx: 11:13 Hypothyroidism; Intestinal rupture; Bowel obstruction; jl7 - PSHx: 11:13 Colostomy; Colostomy reversal; jl7 - Immunization history:: Client reports receiving the 1st dose of the Covid vaccine. - Social history:: Smoking status: Patient denies any tobacco usage or history of. ROS: 11:34 Constitutional: Negative for fever, chills, and weight loss, Eyes: Negative for injury, jl9 pain, redness, and discharge, ENT: Negative for injury, pain, and discharge, Neck: Negative for injury, pain, and swelling, Cardiovascular: Negative for chest pain, palpitations, and edema, Respiratory: Negative for shortness of breath, cough, wheezing, and pleuritic chest pain. 11:34 Back: Negative for injury and pain, : Negative for injury, bleeding, discharge, and swelling, MS/Extremity: Negative for injury and deformity, Skin: Negative for injury, rash, and discoloration, Neuro: Negative for headache, weakness, numbness, tingling, and seizure, Psych: Negative for depression, anxiety, suicide ideation, homicidal ideation, and hallucinations, Allergy/Immunology: Negative for hives, rash, and allergies, Endocrine: Negative for neck swelling, polydipsia, polyuria, polyphagia, and marked weight changes, Hematologic/Lymphatic: Negative for swollen nodes, abnormal bleeding, and unusual bruising. 11:34 Abdomen/GI: Positive for abdominal pain, nausea. Exam: 11:34 Constitutional: This is a well developed, well nourished patient who is awake, alert, jl9 and in no acute distress. Head/Face: Normocephalic, atraumatic. Eyes: Pupils equal round and reactive to light, extra-ocular motions intact. Lids and lashes normal. Conjunctiva and sclera are non-icteric and not injected. Cornea within normal limits. Periorbital areas with no swelling, redness, or edema. ENT: Mucous membranes moist. Neck: Trachea midline, no thyromegaly or masses palpated, and no cervical lymphadenopathy. Supple, full range of motion without nuchal rigidity, or vertebral point tenderness. No Meningismus. Chest/axilla: Normal chest wall appearance and motion. Nontender with no deformity. No lesions are appreciated. Cardiovascular: Regular rate and rhythm with a normal S1 and S2. No gallops, murmurs, or rubs. Normal PMI, no JVD. No pulse deficits. Respiratory: Lungs have equal breath sounds bilaterally, clear to auscultation and percussion. No rales, rhonchi or wheezes noted. No increased work of breathing, no retractions or nasal flaring. 11:34 Back: No spinal tenderness. No costovertebral tenderness. Full range of motion. Skin: Warm, dry with normal turgor. Normal color with no rashes, no lesions, and no evidence of cellulitis. MS/ Extremity: Pulses equal, no cyanosis. Neurovascular intact. Full, normal range of motion. Neuro: Awake and alert, GCS 15, oriented to person, place, time, and situation. Cranial nerves II-XII grossly intact. Motor strength 5/5 in all extremities. Sensory grossly intact. Cerebellar exam normal. Normal gait. Psych: Awake, alert, with orientation to person, place and time. Behavior, mood, and affect are within normal limits. 11:34 Abdomen/GI: Inspection: abdomen appears normal, Bowel sounds: normal, Palpation: mild abdominal tenderness, in all quadrants. Vital Signs: 11:11 BP 177 / 88; Pulse 72; Resp 17 S; Temp 97.7; Pulse Ox 100% on R/A; Weight 84.37 kg; jl7 Height 5 ft. (152.40 cm); Pain 8/10; 11:11 Body Mass Index 36.33 (84.37 kg, 152.40 cm) jl7 MDM: 11:12 Patient medically screened. jl9 11:34 Data reviewed: vital signs, nurses notes. jl9 12:45 Counseling: I had a detailed discussion with the patient and/or guardian regarding: the [facility] historical points, exam findings, and any diagnostic results supporting the discharge/admit diagnosis, lab results, radiology results, the need for outpatient follow up, to return to the emergency department if symptoms worsen or persist or if there are any questions or concerns that arise at home. Response to treatment: the patient's symptoms have markedly improved after treatment. 03/09 11:15 Order name: CBC with Diff; Complete Time: 12:14 [facility] 03/09 11:15 Order name: CMP; Complete Time: 12:14 [facility] 03/09 11:15 Order name: Lipase; Complete Time: 12:14 [facility] 03/09 11:15 Order name: CT Abd/Pelvis - IV Contrast Only; Complete Time: 12:40 03/09 11:15 Order name: Troponin High Sensitivity; Complete Time: 12:14 [facility] 03/09 11:36 Order name: Urine Dipstick-Ancillary; Complete Time: 12:14 [facility] 03/09 11:15 Order name: IV Saline Lock; Complete Time: 11:41 [facility] 03/09 11:15 Order name: Labs collected and sent; Complete Time: 11:41 [facility] 03/09 11:15 Order name: Urine Dipstick-Ancillary (obtain specimen); Complete Time: 11:35 [facility] 03/09 11:15 Order name: EKG; Complete Time: 11:16 [facility] Administered Medications: 11:41 Drug: Zofran (Ondansetron) 4 mg Route: IVP; Site: right antecubital; bm7 12:50 Follow up: Response: Nausea is decreased bm7 11:53 Drug: morphine 2 mg Route: IVP; Infused Over: 4 mins; Site: right antecubital; bm7 12:50 Follow up: Response: Pain is decreased bm7 11:53 Drug: NS 0.9% 1000 ml Route: IV; Rate: 1000 ml; Site: right antecubital; bm7 12:50 Follow up: IV Status: Completed infusion; IV Intake: 1000ml bm7 Disposition Summary: 03/09/22 12:46 Discharge Ordered Location: Home jl9 Condition: Stable jl9 Diagnosis - Diverticulosis of intestine, part unspecified, without perforation or abscess with jl9 bleeding Followup: jl9 - With: Private Physician - When: 1 - 2 days - Reason: Recheck today's complaints, Continuance of care, Re-evaluation by your physician Discharge Instructions: - Discharge Summary Sheet jl9 - Diverticulosis jl9 Forms: - Medication Reconciliation Form jl9 - Thank You Letter jl9 - Antibiotic Education jl9 - Prescription Opioid Use jl9 Signatures: Dispatcher [employer] Aimee Chamberlain RN RN jl7 Shoshana Morales RN RN bm7 Tahir Salas jl9
--- NOTE | 2022-03-09 12:46 | ER ---
Nurse's Notes [facility] Name: Scarlet Simmons Age: 72 yrs Sex: Female : 1950 Arrival Date: 03/09/2022 Time: 10:43 Bed 19 Private MD: Hill Pinon Diagnosis: Diverticulosis of intestine, part unspecified, without perforation or abscess with bleeding Presentation: 03/09 11:11 Chief complaint: Patient states: Ride sided abdominal pain, radiates along lower jl7 abdomen x 2 weeks, reports nausea, last BM 4 days ago, denies symptoms. Coronavirus screen: At this time, the client does not indicate any symptoms associated with coronavirus-19. Ebola Screen: No symptoms or risks identified at this time. Initial Sepsis Screen: Does the patient meet any 2 criteria? No. Patient's initial sepsis screen is negative. Does the patient have a suspected source of infection? No. Patient's initial sepsis screen is negative. Risk Assessment: Do you want to hurt yourself or someone else? Patient reports no desire to harm self or others. Onset of symptoms was February 23, 2022. 11:11 Method Of Arrival: Ambulatory [facility] 11:11 Acuity: YESY 3 jl7 Triage Assessment: 11:13 General: Appears in no apparent distress. uncomfortable, Behavior is calm, cooperative, jl7 appropriate for age. Pain: Complains of pain in anterior aspect of right lateral abdomen Pain radiates to right lower quadrant and left lower quadrant Pain currently is 8 out of 10 on a pain scale. GI: Reports lower abdominal pain, nausea, Patient currently denies flatulence. : Denies burning with urination, pain with urination. Historical: - Allergies: 11:13 Latex, Natural Rubber; jl7 11:13 Nitrofurantoin Macrocrystal; jl7 11:13 Phenergan; jl7 11:13 sulfamethoxazole-trimethoprim; jl7 - Home Meds: 11:13 levothyroxine oral [Active]; jl7 - PMHx: 11:13 Hypothyroidism; Intestinal rupture; Bowel obstruction; jl7 - PSHx: 11:13 Colostomy; Colostomy reversal; jl7 - Immunization history:: Client reports receiving the 1st dose of the Covid vaccine. - Social history:: Smoking status: Patient denies any tobacco usage or history of. Screenin:32 Abuse screen: Denies threats or abuse. Nutritional screening: No deficits noted. bm7 Tuberculosis screening: No symptoms or risk factors identified. Fall Risk None identified. Assessment: 12:32 Reassessment: Patient and/or family updated on plan of care and expected duration. Pain bm7 level reassessed. Patient is alert, oriented x 3, equal unlabored respirations, skin warm/dry/pink. Vital Signs: 11:11 BP 177 / 88; Pulse 72; Resp 17 S; Temp 97.7; Pulse Ox 100% on R/A; Weight 84.37 kg; jl7 Height 5 ft. (152.40 cm); Pain 8/10; 11:11 Body Mass Index 36.33 (84.37 kg, 152.40 cm) jl7 ED Course: 10:43 Patient arrived in ED. mr 10:43 Hill Pinon MD is Private Physician. mr 11:12 [facility] jl9 11:12 Meet Roth MD is Attending Physician. jl9 11:13 Triage completed. jl7 11:13 Arm band placed on right wrist. jl7 11:23 Kalina Asencio, ELOY is Primary Nurse. ko1 12:28 CT Abd/Pelvis - IV Contrast Only In Process Unspecified. EDMS 12:32 No apparent distress. Resting quietly. Awaiting lab results. bm7 12:32 Patient has correct armband on for positive identification. Placed in gown. Bed in low bm7 position. Call light in reach. Side rails up X 1. Adult w/ patient. Client placed on continuous cardiac and pulse oximetry monitoring. NIBP monitoring applied. Door closed. Noise minimized. Lights dimmed. Warm blanket given. Assisted to bathroom. 12:32 Initial lab(s) drawn, by me, sent to lab. Urine collected: clean catch specimen, clear. bm7 Inserted saline lock: 20 gauge in right antecubital area, using aseptic technique. Blood collected. 12:49 No provider procedures requiring assistance completed. Patient did not have IV access bm7 during this emergency room visit. Administered Medications: 11:41 Drug: Zofran (Ondansetron) 4 mg Route: IVP; Site: right antecubital; bm7 12:50 Follow up: Response: Nausea is decreased bm7 11:53 Drug: morphine 2 mg Route: IVP; Infused Over: 4 mins; Site: right antecubital; bm7 12:50 Follow up: Response: Pain is decreased bm7 11:53 Drug: NS 0.9% 1000 ml Route: IV; Rate: 1000 ml; Site: right antecubital; bm7 12:50 Follow up: IV Status: Completed infusion; IV Intake: 1000ml bm7 Medication: 12:32 VIS not applicable for this client. bm7 Intake: 12:50 IV: 1000ml; Total: 1000ml. bm7 Outcome: 12:46 Discharge ordered by . lm 13:12 Discharged to home ambulatory, with family. bm7 13:12 Condition: improved 13:12 Discharge instructions given to patient, family, Instructed on discharge instructions, follow up and referral plans. Demonstrated understanding of instructions, follow-up care. 13:12 Patient left the ED. bm7 Signatures: Dispatcher [employer] EDDE Ese Obrien Jahala, RN RN [email or web address] Shoshana Morales RN RN bm7 Linares, John jl9 Kalina Asencio RN RN ko1
[2022-03-09 13:18] VITALS: BP 177/88; TEMP 97.7; O2SAT 100
== END 2022-03-09 13:12 | disposition home or self-care (01) ==
LOC: ER 10:39
DX: K57.31 Diverticulosis of large intestine without perforation or abscess with bleeding (principal); E03.9 Hypothyroidism, unspecified; Z88.2 Allergy status to sulfonamides; Z88.8 Allergy status to other drugs, medicaments and biological substances; Z91.040 Latex allergy status; Z91.048 Other nonmedicinal substance allergy status
CPT/HCPCS: 96361; 85025; 36415; 81003; 84484; 83690; 80053; 74177; 96375; 96374; 99284; Q9967; J2270; J7030; J2405

== ENCOUNTER 2022-11-23 10:57 | Emergency (ER) | payer OTHER ==
--- OUTSIDE RECORDS SUMMARY | 2022-11-23 11:05 | XMS REPORT | Continuity of Care Document ---
:1950 Author Organization [facility] t Address [address] [facility] [place] [address] Care Team Providers Name Role Phone Zi LEONARD [place] Primary Care Physician MARCELA VELEZ Attending Clinician Unavailable ESE TERAN Attending Clinician Unavailable Ese Teran DO Attending Clinician Doctor Unassigned, [place] Attending Clinician Unavailable Marcela Velez MD Attending Clinician 2, [facility] Attending Clinician Unavailable Mirza Duong PA-C Attending Clinician MIRZA DUONG Attending Clinician Unavailable NAJMA POWELL Attending Clinician Unavailable Najma Vogel Attending Clinician Abby Rivera MD Attending Clinician ABBY RIVERA Attending Clinician Unavailable ROSLYN JAVIER Attending Clinician Unavailable Roslyn Javier NP Attending Clinician GAY LAKHANI Attending Clinician Unavailable Donna LEONARD, Gay Contreras Attending Clinician ISMAEL GONZÁLES Attending Clinician Unavailable Ismael Gonzáles MD Attending Clinician Radha Jacome MD Attending Clinician RADHA JACOME Attending Clinician Unavailable Jeff Contreras Attending Clinician Shona LYONS, Ashleigh Tadeo Attending Clinician Unavailable Provider, [facility] Attending Clinician Unavailable Only, Ang Db Test Attending Clinician Unavailable ATSH JONES Attending Clinician Unavailable Carlos Rahman Attending Clinician Unavailable Lab, [facility] Fam Pob I Attending Clinician Unavailable GEETA ORTEGA Attending Clinician Unavailable Javier Goldsmith Attending Clinician JAVIER GOLDSMITH Attending Clinician Unavailable Lg Brown MD Attending Clinician , [facility] Surg Spec Procedure Attending Clinician Unavailable LG BROWN Attending Clinician Unavailable ESE TERAN Admitting Clinician Unavailable MIRZA DUONG Admitting Clinician Unavailable NAJMA POWELL Admitting Clinician Unavailable ISMAEL GONZÁLES Admitting Clinician Unavailable [place] Pin[place] Admitting Clinician Unavailable Payers Payer Name Policy Type Policy Number Effective Date Expiration Date S abimbola [facility] MEDIC[facility] [id number] 2018 COMPLETE CHOICE 00:00:00 SINCERE [id number] 2021 00:00:00 [id number] 2014 00:00:00 DERRICK/JOSLYN ROBLERO [id number] 2022 ADV CHOICE PPO 00:00:00 Problems Condition Condition Condition Status Onset Resolution [...] a 00 l Cerebrovas Cerebrovas Disease Active M ethodi cular cular 6-13 st accident accident 00:00: Hospit a (CVA) (CVA) 00 l 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 6-06 st L4-L5 L4-L5 00:00: Hospita level level 00 l 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 5-11 st L3-L4 L3-L4 00:00: Hospita level level 00 l 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 00:00: Hosp tracee 00 l History of History of Disease Active 2017-0 M ethodi left left 5-11 st breast breast 00:00: Hospita biopsy biopsy 00 l H/O H/O Disease Active 0 Methodi colostomy colostomy 5-11 st 00:00: Hospita 00 l Allergies, Adverse Reactions, Alerts Allergy Allergy Status Severity Reaction(s) Onset Inactive Treating Comm ents Source Name Type Date Date Clinician SULFAMET DRUG Active Hives Univers HOXAZOLE 9 ity of -TRIMETH 00:00: [place] OPRIM 00 Medical Branch Sulfamet Propensi Active Hives 0 Univer s hoxazole ty to 9-02 ity [...] Medical Branch Phenerga Propensi Active Unknown - 2019- Uni vers n Plain ty to See comments 0-09 ity of adverse 00:00: [place] reaction 00 Medical s Branch PHENERGA DRUG Active Unknown-Cmnt 2019- Un hien N PLAIN 0-09 ity of 00:00: [place] 00 Medical Branch Honey Propensi Active Hives 2018-0 Univers ty to 6-14 ity of adverse 00:00: [place] reaction 00 Medical s Branch HONEY DRUG Active Hives 2018-0 Univers INGREDI 6-14 ity of 00:00: [place] 00 Medical Branch Honey Propensi Active Hives 2018-0 Methodi ty to 6-14 st adverse 00:00: Hospita reaction 00 l s to drug Adhesive Propensi Active Other - See 2018-0 Causes U nivers Tape-Sasha ty to comments 5-11 skin ity of icones adverse 00:00: blister [place] reaction 00 Medical s Branch ADHESIVE DRUG Active Other-Cmnt [id number] Univ ers TAPE-SASHA 5-11 ity of ICONES 00:00: [place] 00 Medical Branch Adhesive Propensi Active 2018-0 Causes Method i Tape-Sasha ty to 5-[address] icones adverse 00:00: blister Hospita reaction 00 l s to drug Nitrofur Propensi Active Other - See 2018-0 U nivers antoin ty to comments 5-10 ity of Macrocry adverse 00:00: [place] stalline reaction 00 Medica l s Branch NITROFUR DRUG Active Other-Cmnt [id number] Univ ers ANTOIN INGREDI 5-10 ity of MACROCRY 00:00: [place] STALLINE 00 Medical Branch Sulfamet Propensi Active Rash 2018-0 blister Metho [...] s to drug Prometha Propensi Active GI 2017-0 Nausea Method i zine ty to Intolerance 5-[address] adverse 00:00: vomiting Hospita reaction 00 l s to drug prometha DA Active U 2012- [facility] zine HCl 07-06 [facility] Sulfa DA Active U HIVES [facility] (Sulfona 07-06 [facility] mide 00:00: d Antibiot 00 Medical ics) Center nitrofur DA Active U HIVES [facility] antoin 07-06 [facility] 00[facility]: d [facility] trimetho DA Active U HIVES [facility] prim 07-06 [facility] 00:[facility]: d [facility] Adhesive DA Active U [facility] Bandage 07-06 [facility] 00:[facility]: d [facility] latex DA Active U [facility] 07-06 [facility] 00:[facility]: d [facility] prometha DA Active U SEVERE N/V [facility] zine HCl 07-06 [facility] 00:00: d 00 [facility] Adhesive DA Active U BLISTERS [facility] Bandage 07-06 [facility] 00:[facility]: d [facility] latex DA Active U BREAKS OUT [facility] 07-06 [facility] 00:[facility]: d [facility] Family History Family Member Diagnosis Comments Start Date Stop Date Source Natural mother Thyroid disease [facility] Maternal grandmother Heart disease [facility] Social History Social Habit Start Date Stop Date Quantity Comments Source Gender identity [facility] Sexual orientation [facility] History SDOH [facility] Alcohol Frequency Hospita l History SDOH [facility] Alcohol Std Drinks Hospit al History SDOH [facility] Alcohol Binge Hospital Exposure to 2022-11-08 2022-11-18 Not sure [facility] SARS-CoV-2 (event) 00:00:00 18:43:00 [facility] Tobacco use and 2022-07-31 2022-07-31 Smokeless Universit y of exposure 00:00:00 00:00:00 tobacco non-user [facility] History of Social 2018-05-10 2018-05-[address] function 00:00:00 00:00:00 Hospital Alcohol intake 2017-12-10 2017-12-10 Current drinker [facility] 00:00:00 00:00:00 of alcohol Hospital (finding) Alcohol Comment 2017-11-05 2017-11-05 rarely [facility] 00:00:[facility] 00:[facility]:00 Hospital Sex Assigned At [birth year] [facility] 00:00:00 00:00:00 Hospital Smoking Status Start Date Stop Date Source Never smoked tobacco [facility] Medications Ordered Filled Start Stop Current Ordering Indication Dosage Frequency Signature Comments Components Source Medication Medication Date Date Medication? Clinician (SIG) Name Name iopamidol 2022- No [id number] 70mL 70 mL, Univers (ISOVUE 11-19 Intravenou ity o f 370-500 mL) 03:45: 02:46 s, ONCE, 1 [place] injection 00 :00 dose, On Medica l 70 mL Tue Branch 11/18/22 at 2245, Routine NaCl 0.9% 2022- No 1000mL at 999 Uni vers (NS) bolus 11-19 mL/hr, ity of infusion 03:30: 04:53 1,000 mL, Deep as 1,000 mL 00 :00 IV Medical Infusion, Branch ONCE, 1 dose, On [facility] 11/18/22 at 2230, DARIO cefTRIAXone 2022- No 1000mg 1,000 mg, Univers (ROCEPHIN) 11-19 IV ity of 1,000 mg in 02:45: 03:25 Piggyback, [place] NaCl 0.9% 00 :00 ONCE, 1 Medical (NS) 100 mL dose, On Bran ch MINI-BAG [facility] 11/18/22 at 2145, Administer over 30 Minutes, 100 mL
Reas on for Anti-Infec tive: Documented Infection< br>Documen jack Infection Site: Urine<br&g t;Duration of Therapy: 7 days ketorolac 2022- No 15mg 15 mg, Unive rs (TORADOL) 11-19 Slow IV ity of injection 01:00: 01:55 Push, [place] 15 mg 00 :00 ONCE, 1 Medical dose, On Branch [facility] 11/18/22 at 2000, Routine maalox:diph 2022- No 15mL 15 mL, Uni vers enhydrAMINE 11-19 Oral, ity of :lidocaine 00:15: 01:55 ONCE, 1 Deep as 2 % viscous 00 :00 dose, On Medi kory 1:1:1 Thu Branch ([facility] 11/18/22 at [facility]) 1915, oral Routine suspension 15 mL maalox:diph 2022- Yes [id number] 10mL Swish and Univers enhydrAMINE 11-18 swallow 10 it y of :lidocaine 00:00: mL as [place] 2 % viscous 00 needed for Me dical 1:1:1 Oral Branch mucositis. cefpodoxime 2022-0 2022- Yes [id number] 100mg Take 1 Univers 100 mg 5-23 05-31 tablet by ity of tablet 00:00: 04:59 mouth in [place] 00 :00 the Medical morning Branch and 1 tablet in the evening. Do all this for 7 days. clobetasoL 2023-0 Yes [id number] Apply to Univers 0.05 % 5-02 area(s) 2 ity of ointment 00:00: (two) [place] 00 times Medical daily. Branch Apply to affected area twice a day for 4 weeks and then 3 times (M/W/F) a week clobetasoL 2023-0 Yes [id number] Apply to Univers 0.05 % 5-02 area(s) 2 ity of ointment 00:00: (two) [place] 00 times Medical daily. Branch Apply to affected area twice a day for 4 weeks and then 3 times (M/W/F) a week clobetasoL 3-0 Yes [id number] Apply to Univers 0.05 % 5-02 area(s) 2 ity of ointment 00:00: (two) [place] 00 times Medical daily. Branch Apply to affected area twice a day for 4 weeks and then 3 times (M/W/) a week clobetasoL 2023-0 Yes [id number] Apply to Univers 0.05 % 5-02 area(s) 2 ity of ointment 00:00: (two) [place] 00 times Medical daily. Branch Apply to affected area twice a day for 4 weeks and then 3 times (M/W/F) a week clobetasoL 2023-0 Yes [id number] Apply to Univers 0.05 % 5-02 area(s) 2 ity of ointment 00:00: (two) [place] 00 times Medical daily. Branch Apply to affected area twice a day for 4 weeks and then 3 times (M/W/F) a week clobetasoL 2023-0 Yes [id number] Apply to Univers 0.05 % 5-02 area(s) 2 ity of ointment 00:00: (two) [place] 00 times Medical daily. Branch Apply to affected area twice a day for 4 weeks and then 3 times (M/W/F) a week PARoxetine 2023-0 Yes [id number] 10mg Take 1 Univers (PAXIL) 10 3-08 tablet by [place]y of mg tablet 00:00[place] the Medical morning. Branch PARoxetine 3-0 Yes [id number] 10mg Take 1 Univers (PAXIL) 10 3-08 tablet by ity of mg tablet 00:00: [place] 00 the Medical morning. Branch PARoxetine 3-0 Yes [id number] 10mg Take 1 Univers (PAXIL) 10 3-08 tablet by ity of mg tablet 00:00: [place] 00 the Medical morning. Branch PARoxetine 3-0 Yes [id number] 10mg Take 1 Univers (PAXIL) 10 3-08 tablet by ity of mg tablet 00:00: [place] 00 the Medical morning. Branch PARoxetine 3-0 Yes [id number] 10mg Take 1 Univers (PAXIL) 10 3-08 tablet by ity of mg tablet 00:00: [place] 00 the Medical morning. Branch PARoxetine 3-0 Yes [id number] 10mg Take 1 Univers (PAXIL) 10 3-08 tablet by ity of mg tablet 00:00: [place] 00 the Medical morning. Branch PARoxetine 3-0 Yes [id number] 10mg Take 1 Univers (PAXIL) 10 3-08 tablet by ity of mg tablet 00:00: [place] 00 the Medical morning. Branch PARoxetine 3-0 Yes [id number] 10mg Take 1 Univers (PAXIL) 10 3-08 tablet by ity of mg tablet 00:00: [place] 00 the Medical morning. Branch PARoxetine 3-0 Yes [id number] 10mg Take 1 Univers (PAXIL) 10 3-08 tablet by ity of mg tablet 00:00: [place] 00 the Medical morning. Branch PARoxetine 3-0 Yes [id number] 10mg Take 1 Univers (PAXIL) 10 3-08 tablet by ity of mg tablet 00:00: [place] 00 the Medical morning. Branch PARoxetine 2023-0 Yes [id number] 10mg Take 1 Univers (PAXIL) 10 3-08 tablet by ity of mg tablet 00:00: [place] 00 the Medical morning. Branch amoxicillin 2022-0 Yes [id number] 1{tbl} Take 1 Univers -clavulanat 2-16 tablet by ity of e 00:00: mouth in [place] (AUGMENTIN) 00 the Medical 875-125 mg morning Branch per tablet and 1 tablet in the evening. amoxicillin 2022-0 Yes [id number] 1{tbl} Take 1 Univers -clavulanat 2-16 tablet by ity of e 00:00: mouth in [place] (AUGMENTIN) 00 the Medical 875-125 mg morning Branch per tablet and 1 tablet in the evening. amoxicillin 2022-0 Yes [id number] 1{tbl} Take 1 Univers -clavulanat 2-16 tablet by ity of e 00:00: mouth in [place] (AUGMENTIN) 00 the Medical 875-125 mg morning Branch per tablet and 1 tablet in the evening. amoxicillin 2022-0 Yes [id number] 1{tbl} Take 1 Univers -clavulanat 2-16 tablet by ity of e 00:00: mouth in [place] (AUGMENTIN) 00 the Medical 875-125 mg morning Branch per tablet and 1 tablet in the evening. amoxicillin 2022-0 Yes [id number] 1{tbl} Take 1 Univers -clavulanat 2-16 tablet by ity of e 00:00: mouth in [place] (AUGMENTIN) 00 the Medical 875-125 mg morning Branch per tablet and 1 tablet in the evening. amoxicillin 2022-0 Yes [id number] 1{tbl} Take 1 Univers -clavulanat 2-16 tablet by ity of e 00:00: mouth in [place] (AUGMENTIN) 00 the Medical 875-125 mg morning Branch per tablet and 1 tablet in the evening. amoxicillin 2022-0 Yes [id number] 1{tbl} Take 1 Univers -clavulanat 2-16 tablet by ity of e 00:00: mouth in [place] (AUGMENTIN) 00 the Medical 875-125 mg morning Branch per tablet and 1 tablet in the evening. amoxicillin 2022-0 Yes [id number] 1{tbl} Take 1 Univers -clavulanat 2-16 tablet by ity of e 00:00: mouth in [place] (AUGMENTIN) 00 the Medical 875-125 mg morning Branch per tablet and 1 tablet in the evening. amoxicillin 2022-0 Yes [id number] 1{tbl} Take 1 Univers -clavulanat 2-16 tablet by ity of e 00:00: mouth in [place] (AUGMENTIN) 00 the Medical 875-125 mg morning Branch per tablet and 1 tablet in the evening. amoxicillin Yes [id number] 1{tbl} Take 1 Univers -clavulanat 2-16 tablet by ity of e 00:00: mouth in [place] (AUGMENTIN) 00 the Medical 875-125 mg morning Branch per tablet and 1 tablet in the evening. amoxicillin Yes [id number] 1{tbl} Take 1 Univers -clavulanat 2-16 tablet by ity of e 00:00: mouth in [place] (AUGMENTIN) 00 the Medical 875-125 mg morning Branch per tablet and 1 tablet in the evening. amoxicillin 2022- No [id number] 1{tbl} Take 1 Univers -clavulanat 2-16 05-02 tablet by it y of e 00:00: 00:00 mouth in [place] (AUGMENTIN) 00 :00 the Medical 875-125 mg morning Branch per tablet and 1 tablet in the evening. amoxicillin 2022- No [id number] 1{tbl} Take 1 Univers -clavulanat 2-16 05-02 tablet by it y of e 00:00: 00:00 mouth in [place] (AUGMENTIN) 00 :00 the Medical 875-125 mg morning Branch per tablet and 1 tablet in the evening. cyanocobala Yes 1000ug Inject Un hien min, 2-03 1,000 mcg ity of vitamin 12:11: as [place] B-12, (B-12 06 directed Medi kory COMPLIANCE) once every Br anch 1,000 month. mcg/mL Taken the injection beginning of the month cyanocobala Yes 1000ug Inject Un hien min, 2-03 1,000 mcg ity of vitamin 12:11: as [place] B-12, (B-12 06 directed Medi kory COMPLIANCE) once every Br anch ,000 month. mcg/mL Taken the injection beginning of the month cyanocobala Yes 1000ug Inject Un hien min, 2-03 1,000 mcg ity of vitamin 12:11: as [place] B-12, (B-12 06 directed Medi kory COMPLIANCE) once every Br anch 1,000 month. mcg/mL Taken the injection beginning of the month cyanocobala Yes 1000ug Inject Un hien min, 2-03 1,000 mcg ity of vitamin 12:11: as [place] B-12, (B-12 06 directed Medi kory COMPLIANCE) once every Br anch 1,000 month. mcg/mL Taken the injection beginning of the month cyanocobala Yes 1000ug Inject Un hien min, 2-03 1,000 mcg ity of vitamin 12:11: as [place] B-12, (B-12 06 directed Medi kory COMPLIANCE) once every Br anch 1,000 month. mcg/mL Taken the injection beginning of the month cyanocobala Yes 1000ug Inject Un hien min, 2-03 1,000 mcg ity of vitamin 12:11: as [place] B-12, (B-12 06 directed Medi kory COMPLIANCE) once every Br anch 1,000 month. mcg/mL Taken the injection beginning of the month cyanocobala Yes 1000ug Inject Un hien min, 2-03 1,000 mcg ity of vitamin 12:11: as [place] B-12, (B-12 06 directed Medi kory COMPLIANCE) once every Br anch 1,000 month. mcg/mL Taken the injection beginning of the month cyanocobala Yes 1000ug Inject Un hien min, 2-03 1,000 mcg ity of vitamin 12:11: as [place] B-12, (B-12 06 directed Medi kory COMPLIANCE) once every Br anch 1,000 month. mcg/mL Taken the injection beginning of the month cyanocobala Yes 1000ug Inject Un hien min, 2-03 1,000 mcg ity of vitamin 12:11: as [place] B-12, (B-12 06 directed Medi kory COMPLIANCE) once every Br anch 1,000 month. mcg/mL Taken the injection beginning of the month cyanocobala Yes 1000ug Inject Un hien min, 2-03 1,000 mcg ity of vitamin 12:11: as [place] B-12, (B-12 06 directed Medi kory COMPLIANCE) once every Br anch 1,000 month. mcg/mL Taken the injection beginning of the month cyanocobala Yes 1000ug Inject Un hien min, 2-03 1,000 mcg ity of vitamin 12:11: as [place] B-12, (B-12 06 directed Medi kory COMPLIANCE) once every Br anch ,000 month. mcg/mL Taken the injection beginning of the month cyanocobala Yes 1000ug Inject Un hien min, 2-03 1,000 mcg ity of vitamin 12:11: as [place] B-12, (B-12 06 directed Medi kory COMPLIANCE) once every Br anch ,000 month. mcg/mL Taken the injection beginning of the month cyanocobala Yes 1000ug Inject Un hien min, 2-03 1,000 mcg ity of vitamin 12:11: as [place] B-12, (B-12 06 directed Medi kory COMPLIANCE) once every Br anch ,000 month. mcg/mL Taken the injection beginning of the month cyanocobala Yes 1000ug Inject Un hien min, 2-03 1,000 mcg ity of vitamin 12:11: as [place] B-12, (B-12 06 directed Medi kory COMPLIANCE) once every Br anch ,000 month. mcg/mL Taken the injection beginning of the month cyanocobala Yes 1000ug Inject Un hien min, 2-03 1,000 mcg ity of vitamin 12:11: as [place] B-12, (B-12 06 directed Medi kory COMPLIANCE) once every Br anch ,000 month. mcg/mL Taken the injection beginning of the month cyanocobala Yes 1000ug Inject Un hien min, 2-03 1,000 mcg ity of vitamin 12:11: as [place] B-12, (B-12 06 directed Medi kory COMPLIANCE) once every Br anch 1,000 month. mcg/mL Taken the injection beginning of the month cyanocobala Yes 1000ug Inject Un hien min, 2-03 1,000 mcg ity of vitamin 12:11: as [place] B-12, (B-12 06 directed Medi kory COMPLIANCE) once every Br anch 1,000 month. mcg/mL Taken the injection beginning of the month cyanocobala Yes 1000ug Inject Un hien min, 2-03 1,000 mcg ity of vitamin 12:11: as [place] B-12, (B-12 06 directed Medi kory COMPLIANCE) once every Br anch 1,000 month. mcg/mL Taken the injection beginning of the month cyanocobala Yes 1000ug Inject Un hien min, 2-03 1,000 mcg ity of vitamin 12:11: as [place] B-12, (B-12 06 directed Medi kory COMPLIANCE) once every Br anch ,000 month. mcg/mL Taken the injection beginning of the month cyanocobala Yes 1000ug Inject Un hien min, 2-03 1,000 mcg ity of vitamin 12:11: as [place] B-12, (B-12 06 directed Medi kory COMPLIANCE) once every Br anch ,000 month. mcg/mL Taken the injection beginning of the month cyanocobala Yes 1000ug Inject Un hien min, 2-03 1,000 mcg ity of vitamin 12:11: as [place] B-12, (B-12 06 directed Medi kory COMPLIANCE) once every Br anch ,000 month. mcg/mL Taken the injection beginning of the month cyanocobala Yes 1000ug Inject Un hien min, 2-03 1,000 mcg ity of vitamin 12:11: as [place] B-12, (B-12 06 directed Medi kory COMPLIANCE) once every Br anch ,000 month. mcg/mL Taken the injection beginning of the month cyanocobala Yes 1000ug Inject Un hien min, 2-03 1,000 mcg ity of vitamin 12:11: as [place] B-12, (B-12 06 directed Medi kory COMPLIANCE) once every Br anch ,000 month. mcg/mL Taken the injection beginning of the month cyanocobala Yes 1000ug Inject Un hien min, 2-03 1,000 mcg ity of vitamin 12:11: as [place] B-12, (B-12 06 directed Medi kory COMPLIANCE) once every Br anch ,000 month. mcg/mL Taken the injection beginning of the month levothyroxi 2022- No 125ug Take 125 Univers ne 08-01 02-03 mcg by ity of (SYNTHROID) 12:10: 00:00 [place] 112 mcg 35 :00 every Medical tablet morning. Branch levothyroxi 2022- No 125ug Take 125 Univers ne 08-01 02-03 mcg by ity of (SYNTHROID) 12:10: 00:00 [place] 112 mcg 35 :00 every Medical tablet morning. Branch gabapentin 2023-0 Yes Take by Univ ers ER 300 mg 2-02 mouth ity of tablet, 11:47: daily. [place] extended 25 Medical release 24 Branch hr gabapentin 2023-0 Yes Take by Univ ers ER 300 mg 2-02 mouth ity of tablet, 11:47: daily. [place] extended 25 Medical release 24 Branch hr gabapentin 2023-0 Yes Take by Univ ers ER 300 mg 2-02 mouth ity of tablet, 11:47: daily. [place] extended 25 Medical release 24 Branch hr gabapentin 2023-0 Yes Take by Univ ers ER 300 mg 2-02 mouth ity of tablet, 11:47: daily. [place] extended 25 Medical release 24 Branch hr gabapentin 2023-0 Yes Take by Univ ers ER 300 mg 2-02 mouth ity of tablet, 11:47: daily. [place] extended 25 Medical release 24 Branch hr gabapentin 2023-0 Yes Take by Univ ers ER 300 mg 2-02 mouth ity of tablet, 11:47: daily. [place] extended 25 Medical release 24 Branch hr gabapentin 2023-0 Yes Take by Univ ers ER 300 mg 2-02 mouth ity of tablet, 11:47: daily. [place] extended 25 Medical release 24 Branch hr gabapentin 2023-0 Yes Take by Univ ers ER 300 mg 2-02 mouth ity of tablet, 11:47: daily. [place] extended 25 Medical release 24 Branch hr gabapentin 2023-0 Yes Take by Univ ers ER 300 mg 2-02 mouth ity of tablet, 11:47: daily. [place] extended 25 Medical release 24 Branch hr gabapentin 2023-0 Yes Take by Univ ers ER 300 mg 2-02 mouth ity of tablet, 11:47: daily. [place] extended 25 Medical release 24 Branch hr gabapentin 2023-0 Yes Take by Univ ers ER 300 mg 2-02 mouth ity of tablet, 11:47: daily. [place] extended 25 Medical release 24 Branch hr gabapentin 2023-0 Yes Take by Univ ers ER 300 mg 2-02 mouth ity of tablet, 11:47: daily. [place] extended 25 Medical release 24 Branch hr gabapentin 2023-0 Yes Take by Univ ers ER 300 mg 2-02 mouth ity of tablet, 11:47: daily. [place] extended 25 Medical release 24 Branch hr gabapentin 2023-0 Yes Take by Univ ers ER 300 mg 2-02 mouth ity of tablet, 11:47: daily. [place] extended 25 Medical release 24 Branch hr gabapentin 2023-0 Yes Take by Univ ers ER 300 mg 2-02 mouth ity of tablet, 11:47: daily. [place] extended 25 Medical release 24 Branch hr gabapentin 2023-0 Yes Take by Univ ers ER 300 mg 2-02 mouth ity of tablet, 11:47: daily. [place] extended 25 Medical release 24 Branch hr gabapentin 2023-0 Yes Take by Univ ers ER 300 mg 2-02 mouth ity of tablet, 11:47: daily. [place] extended 25 Medical release 24 Branch hr gabapentin 2023-0 Yes Take by Univ ers ER 300 mg 2-02 mouth ity of tablet, 11:47: daily. [place] extended 25 Medical release 24 Branch hr gabapentin 2023-0 Yes Take by Univ ers ER 300 mg 2-02 mouth ity of tablet, 11:47: daily. [place] extended 25 Medical release 24 Branch hr gabapentin 2023-0 Yes Take by Univ ers ER 300 mg 2-02 mouth ity of tablet, 11:47: daily. [place] extended 25 Medical release 24 Branch hr gabapentin 2023-0 Yes Take by Univ ers ER 300 mg 2-02 mouth ity of tablet, 11:47: daily. [place] extended 25 Medical release 24 Branch hr gabapentin 2023-0 Yes Take by Univ ers ER 300 mg 2-02 mouth ity of tablet, 11:47: daily. [place] extended 25 Medical release 24 Branch hr gabapentin 2023-0 Yes Take by Univ ers ER 300 mg 2-02 mouth ity of tablet, 11:47: daily. [place] extended 25 Medical release 24 Branch hr gabapentin 2023-0 Yes Take by Univ ers ER 300 mg 2-02 mouth ity of tablet, 11:47: daily. [place] extended 25 Medical release 24 Branch hr gabapentin 2023-0 Yes Take by Univ ers ER 300 mg 2-02 mouth ity of tablet, 11:47: daily. [place] extended 25 Medical release 24 Branch hr gabapentin 2023-0 Yes Take by Univ ers ER 300 mg 2-02 mouth ity of tablet, 11:47: daily. [place] extended 25 Medical release 24 Branch hr cyanocobala 3-0 Yes 1000ug Inject Un hien min, 2-02 1,000 mcg ity of vitamin 11:19: as [place] B-12, (B-12 36 directed Medi kory COMPLIANCE) once every Br anch 1,000 month. mcg/mL Taken the injection beginning of the month cyanocobala 2022-0 Yes 1000ug Inject Un hien min, 2 1,000 mcg ity of vitamin 11:19: as [place] B-12, (12 36 directed Medi kory COMPLIANCE) once every Br anch 1,000 month. mcg/mL Taken the injection beginning of the month PARoxetine 2022-0 Yes [id number] 10mg Take 1 Univers (PAXIL) 10 2-02 tablet by ity of mg tablet 00:00: [place] 00 the Medical morning. Branch PARoxetine 2022-0 Yes [id number] 10mg Take 1 [facility] (PAXIL) 10 2-02 tablet by [facility] mg tablet 00:[place]: [place] the Medical morning. Branch PARoxetine 2022-0 Yes [id number] 10mg Take 1 [facility] (PAXIL) 10 2-02 tablet by [facility] mg tablet 00:00: [place] the Medical morning. Branch PARoxetine 2022-0 Yes [id number] 10mg Take 1 [facility] (PAXIL) 10 2-02 tablet by [facility] mg tablet 00:00: [place] the Medical morning. Branch PARoxetine 2022-0 Yes [id number] 10mg Take 1 [facility] (PAXIL) 10 2-02 tablet by [facility] mg tablet 00:00: [place] 00 the Medical morning. Branch PARoxetine 2022-0 Yes [id number] 10mg Take 1 [facility] (PAXIL) 10 2-02 tablet by [facility] mg tablet 00:00: [place] 00 the Medical morning. Branch PARoxetine 2022-0 Yes [id number] 10mg Take 1 [facility] (PAXIL) 10 2-02 tablet by [facility] mg tablet 00:00: [place] 00 the Medical morning. Branch PARoxetine 3-0 Yes [id number] 10mg Take 1 [facility] (PAXIL) 10 2-02 tablet by [facility] mg tablet 00:00: [place] 00 the Medical morning. Branch PARoxetine 3-0 Yes [id number] 10mg Take 1 [facility] (PAXIL) 10 2-02 tablet by [facility] mg tablet 00:00: [place] 00 the Medical morning. Branch PARoxetine 2022-0 Yes [id number] 10mg Take 1 [facility] (PAXIL) 10 2-02 tablet by [facility] mg tablet 00:00: [place] 00 the Medical morning. Branch PARoxetine 2022-0 Yes [id number] 10mg Take 1 [facility] (PAXIL) 10 2-02 tablet by [facility] mg tablet 00:00: [place] 00 the Medical morning. Branch PARoxetine 2022-0 Yes [id number] 10mg Take 1 [facility] (PAXIL) 10 2-02 tablet by [facility] mg tablet 00:00: [place] 00 the Medical morning. Branch PARoxetine 2022-0 Yes [id number] 10mg Take 1 [facility] (PAXIL) 10 2-02 tablet by [facility] mg tablet 00:00: [place] 00 the Medical morning. Branch PARoxetine 2022-0 Yes [id number] 10mg Take 1 [facility] (PAXIL) 10 2-02 tablet by [facility] mg tablet 00:00: [place] 00 the Medical morning. Branch PARoxetine 2022-0 2022- No [id number] 10mg Take 1 [facility] (PAXIL) 10 2-02 03-08 tablet by ity of mg tablet 00:00: 00:00 mouth [place] :00 the Medical morning. Branch PARoxetine 2022-0 3- No [id number] 10mg Take 1 [facility] (PAXIL) 10 2-02 03-08 tablet by ity of mg tablet 00:00: 00:00 [place] :00 the Medical morning. Branch gabapentin 2022-0 2022- No TAKE 1 [facility] ers 300 mg 07-22 0203 CAPSULE ity of capsule 00:00: 00:00 THREE [place] 00 :00 TIMES A Medical DAY FOR 28 Branch DAY(S) cyanocobala 2021-06 Yes INJECT 1 [facility] min 1,000 1-28 ML EVERY ity of mcg/mL 00:00: MONTH [place] injection 00 NEEDED Medical Branch cyanocobala 2021-06 Yes INJECT 1 [facility] min 1,000 1-28 ML EVERY ity of mcg/mL 00:00: MONTH [place] injection 00 NEEDED Medical Branch cyanocobala 2021-06 Yes INJECT 1 [facility] min 1,000 1-28 ML EVERY ity of mcg/mL 00:00: MONTH [place] injection 00 NEEDED Medical Branch cyanocobala 2021- Yes INJECT 1 [facility] min 1,000 1-28 ML EVERY ity of mcg/mL 00:00: MONTH [place] injection 00 NEEDED Medical Branch cyanocobala 2021- Yes INJECT 1 [facility] min 1,000 1-28 ML EVERY ity of mcg/mL 00:00: MONTH [place] injection 00 NEEDED Medical Branch cyanocobala 2021- Yes INJECT 1 [facility] min 1,000 1-28 ML EVERY ity of mcg/mL 00:00: MONTH [place] injection 00 NEEDED Medical Branch cyanocobala 2021- Yes INJECT 1 [facility] min 1,000 1-28 ML EVERY ity of mcg/mL 00:00: MONTH [place] injection 00 NEEDED Medical Branch cyanocobala 2021- Yes INJECT 1 [facility] min 1,000 1-28 ML EVERY ity of mcg/mL 00:00: MONTH [place] injection 00 NEEDED Medical Branch cyanocobala 2021- Yes INJECT 1 [facility] min 1,000 1-28 ML EVERY ity of mcg/mL 00:00: MONTH [place] injection 00 NEEDED Medical Branch cyanocobala 2021- Yes INJECT 1 [facility] min 1,000 1-28 ML EVERY ity of mcg/mL 00:00: MONTH [place] injection 00 NEEDED Medical Branch cyanocobala 2021- Yes INJECT 1 [facility] min 1,000 1-28 ML EVERY ity of mcg/mL 00:00: MONTH [place] injection 00 NEEDED Medical Branch cyanocobala 2-1 Yes INJECT 1 [facility] min 1,000 1-28 ML EVERY ity of mcg/mL 00:00: MONTH [place] injection 00 NEEDED Medical Branch cyanocobala 2-1 Yes INJECT 1 [facility] min 1,000 1-28 ML EVERY ity of mcg/mL 00:00: MONTH [place] injection 00 NEEDED Medical Branch cyanocobala 2021-1 Yes INJECT 1 [facility] min 1,000 1-28 ML EVERY ity of mcg/mL 00:00: MONTH [place] injection 00 NEEDED Medical Branch cyanocobala 2021-1 Yes INJECT 1 [facility] min 1,000 1-28 ML EVERY ity of mcg/mL 00:00: MONTH [place] injection 00 NEEDED Medical Branch cyanocobala 2021-06 Yes INJECT 1 [facility] min 1,000 1-28 ML EVERY ity of mcg/mL 00:00: MONTH [place] injection 00 NEEDED Medical Branch cyanocobala 2021-06- No INJECT 1 U n[facility] min 1,000 1-28 05-02 ML EVERY ity o f mcg/mL 00:00: 00:00 MONTH [place] injection 00 :00 NEEDED Medical Branch cyanocobala 2021-06- No INJECT 1 U [facility] min 1,000 1-28 05-02 ML EVERY ity o f mcg/mL 00:00: 00:00 MONTH [place] injection 00 :00 NEEDED Medical Branch levothyroxi 2021-06 Yes 137ug Take 137 U nivers ne 137 mcg 1-25 mcg by ity of tablet 00:00: mouth. [place] [facility] levothyroxi 2021-06 Yes 137ug Take 137 U nivers ne 137 mcg 1-25 mcg by ity of tablet 00:00: mouth. [place] [facility] levothyroxi 2021-06 Yes 137ug Take 137 U nivers ne 137 mcg 1-25 mcg by ity of tablet 00:00: mouth. [place] [facility] levothyroxi 2021-06 Yes 137ug Take 137 U n[facility] ne 137 mcg 1-25 mcg by ity of tablet 00:00: mouth. [place] [facility] levothyroxi 2021-06 Yes 137ug Take 137 U n[facility] ne 137 mcg 1-25 mcg by ity of tablet 00:00: mouth. [place] [facility] levothyroxi 2021-06 Yes 137ug Take 137 U nivers ne 137 mcg 1-25 mcg by ity of tablet 00:00: mouth. [place] [facility] levothyroxi 2021-06 Yes 137ug Take 137 U nivers ne 137 mcg 1-25 mcg by ity of tablet 00:00: mouth. [place] [facility] levothyroxi 2021-06 Yes 137ug Take 137 U nivers ne 137 mcg 1-25 mcg by ity of tablet 00:00: mouth. [place] [facility] levothyroxi 2021-06 Yes 137ug Take 137 U nivers ne 137 mcg 1-25 mcg by ity of tablet 00:00: mouth. [place] [facility] levothyroxi 2021-06 Yes 137ug Take 137 U nivers ne 137 mcg 1-25 mcg by ity of tablet 00:00: mouth. [place] [facility] levothyroxi 2021-06 Yes 137ug Take 137 U nivers ne 137 mcg 1-25 mcg by ity of tablet 00:00: mouth. [place] [facility] Branch levothyroxi 2021-06 Yes 137ug Take 137 U nivers ne 137 mcg 1-25 mcg by ity of tablet 00:00: mouth. [place] [facility] levothyroxi 2021-06 Yes 137ug Take 137 U nivers ne 137 mcg 1-25 mcg by ity of tablet 00:00: mouth. [place] [facility] levothyroxi 2021-06 Yes 137ug Take 137 U nivers ne 137 mcg 1-25 mcg by ity of tablet 00:00: mouth. [place] [facility] levothyroxi 2021-06 Yes 137ug Take 137 U nivers ne 137 mcg 1-25 mcg by ity of tablet 00:00: mouth. [place] [facility] levothyroxi 2021-06 Yes 137ug Take 137 U nivers ne 137 mcg 1-25 mcg by ity of tablet 00:00: mouth. [place] [facility] levothyroxi 2021-06 Yes 137ug Take 137 U nivers ne 137 mcg 1-25 mcg by ity of tablet 00:00: mouth. [place] [facility] levothyroxi 2021-06 Yes 137ug Take 137 U nivers ne 137 mcg 1-25 mcg by ity of tablet 00:00: mouth. [place] [facility] levothyroxi 2021-06 Yes 137ug Take 137 U nivers ne 137 mcg 1-25 mcg by ity of tablet 00:00: mouth. [place] [facility] levothyroxi 2021-06 Yes 137ug Take 137 U nivers ne 137 mcg 1-25 mcg by ity of tablet 00:00: mouth. [place] [facility] levothyroxi 2021-06 Yes 137ug Take 137 U nivers ne 137 mcg 1-25 mcg by ity of tablet 00:00: mouth. [place] [facility] levothyroxi 2021-06 Yes 137ug Take 137 U nivers ne 137 mcg 1-25 mcg by ity of tablet 00:00: mouth. [place] 00 Medical Branch iopamidol 2021-06- No [id number] 64mL 64 mL, U nivers (ISOVUE 07-08 11-10 Intravenou ity o f 370-500 mL) 03:00: 03:00 s, ONCE, 1 [place] injection 00 :00 dose, On Medica l 64 mL Wed Branch 05/07/22 at 2100, Routine ketorolac 2021-06 No 15mg 15 mg, Unive rs (TORADOL) 07-08 11-10 Slow IV ity of injection 01:45: 01:07 Push, [place] 15 mg 00 :00 ONCE, 1 Medical dose, On Branch 05/07/22 at 1945, Routine ondansetron 2021-06 No 4mg 4 mg, Slow [facility] (ZOFRAN 07-08 11-10 IV Push, ity of (PF)) 01:45: 01:06 ONCE, 1 [place] injection 4 00 :00 dose, On Medi kory mg Wed Branch 05/07/22 at 1945, DARIO NaCl 0.9% 2021-06 No 1000mL at 999 Uni vers (NS) bolus 07-08 11-10 mL/hr, ity of infusion 01:45: 03:16 1,000 mL, [place] 1,000 mL 00 :00 IV Medical Infusion, Branch ONCE, 1 dose, On Thu05/07/22 at 1945, DARIO ondansetron 2021-06 Yes [id number] 4mg Take 1 [facility] 4 mg 1-09 tablet by ity of disintegrat 00:00: mouth [place] ing tablet 00 every 6 Medica l (six) Branch hours as needed for Nausea and Vomiting (N/V). dicyclomine 2021-06 Yes [id number] 20mg Take 1 [facility] 20 mg 1-09 tablet by ity of tablet 00:00: mouth [place] 00 every 6 Medical (six) Branch hours as needed for Abdominal pain. ondansetron 2021-06 Yes [id number] 4mg Take 1 [facility] 4 mg 1-09 tablet by ity of disintegrat 00:00: mouth [place] ing tablet 00 every 6 Medica l (six) Branch hours as needed for Nausea and Vomiting (N/V). dicyclomine 2021-06 Yes [id number] 20mg Take 1 [facility] 20 mg 1-09 tablet by ity of tablet 00:00: mouth [place] 00 every 6 Medical (six) Branch hours as needed for Abdominal pain. ondansetron 2021-06 Yes [id number] 4mg Take 1 [facility] 4 mg 1-09 tablet by ity of disintegrat 00:00: mouth [place] ing tablet 00 every 6 Medica l (six) Branch hours as needed for Nausea and Vomiting (N/V). dicyclomine 2021-06 Yes [id number] 20mg Take 1 [facility] 20 mg 1-09 tablet by ity of tablet 00:00: mouth [place] 00 every 6 Medical (six) Branch hours as needed for Abdominal pain. ondansetron 2021-06 Yes [id number] 4mg Take 1 [facility] 4 mg 1-09 tablet by ity of disintegrat 00:00: mouth [place] ing tablet 00 every 6 Medica l (six) Branch hours as needed for Nausea and Vomiting (N/V). dicyclomine 2021-06 Yes [id number] 20mg Take 1 [facility] 20 mg 1-09 tablet by ity of tablet 00:00: mouth [place] 00 every 6 Medical (six) Branch hours as needed for Abdominal pain. ondansetron 2021-06 Yes [id number] 4mg Take 1 [facility] 4 mg 1-09 tablet by ity of disintegrat 00:00: mouth [place] ing tablet 00 every 6 Medica l (six) Branch hours as needed for Nausea and Vomiting (N/V). dicyclomine 2021-06 Yes [id number] 20mg Take 1 [facility] 20 mg 1-09 tablet by ity of tablet 00:00: mouth [place] 00 every 6 Medical (six) Branch hours as needed for Abdominal pain. ondansetron 2021-06 Yes [id number] 4mg Take 1 [facility] 4 mg 1-09 tablet by ity of disintegrat 00:00: mouth [place] ing tablet 00 every 6 Medica l (six) Branch hours as needed for Nausea and Vomiting (N/V). dicyclomine 2021-06 Yes [id number] 20mg Take 1 [facility] 20 mg 1-09 tablet by ity of tablet 00:00: mouth [place] 00 every 6 Medical (six) Branch hours as needed for Abdominal pain. ondansetron 2021-06 Yes [id number] 4mg Take 1 [facility] 4 mg 1-09 tablet by ity of disintegrat 00:00: mouth [place] ing tablet 00 every 6 Medica l (six) Branch hours as needed for Nausea and Vomiting (N/V). dicyclomine 2021-06 Yes [id number] 20mg Take 1 [facility] 20 mg 1-09 tablet by ity of tablet 00:00: mouth [place] 00 every 6 Medical (six) Branch hours as needed for Abdominal pain. ondansetron 2021-06 Yes [id number] 4mg Take 1 [facility] 4 mg 1-09 tablet by ity of disintegrat 00:00: mouth [place] ing tablet 00 every 6 Medica l (six) Branch hours as needed for Nausea and Vomiting (N/V). dicyclomine 2021-06 Yes [id number] 20mg Take 1 [facility] 20 mg 1-09 tablet by ity of tablet 00:00: mouth [place] 00 every 6 Medical (six) Branch hours as needed for Abdominal pain. ondansetron 2021-06 Yes [id number] 4mg Take 1 [facility] 4 mg 1-09 tablet by ity of disintegrat 00:00: mouth [place] ing tablet 00 every 6 Medica l (six) Branch hours as needed for Nausea and Vomiting (N/V). dicyclomine 2021-06 Yes [id number] 20mg Take 1 [facility] 20 mg 1-09 tablet by ity of tablet 00:00: mouth [place] 00 every 6 Medical (six) Branch hours as needed for Abdominal pain. ondansetron 2021-06 Yes [id number] 4mg Take 1 [facility] 4 mg 1-09 tablet by ity of disintegrat 00:00: mouth [place] ing tablet 00 every 6 Medica l (six) Branch hours as needed for Nausea and Vomiting (N/V). dicyclomine 2021-06 Yes [id number] 20mg Take 1 [facility] 20 mg 1-09 tablet by ity of tablet 00:00: mouth [place] 00 every 6 Medical (six) Branch hours as needed for Abdominal pain. ondansetron 2021-06 Yes [id number] 4mg Take 1 [facility] 4 mg 1-09 tablet by ity of disintegrat 00:00: mouth [place] ing tablet 00 every 6 Medica l (six) Branch hours as needed for Nausea and Vomiting (N/V). dicyclomine 2021-06 Yes [id number] 20mg Take 1 [facility] 20 mg 1-09 tablet by ity of tablet 00:00: mouth [place] 00 every 6 Medical (six) Branch hours as needed for Abdominal pain. ondansetron 2021-06 Yes [id number] 4mg Take 1 [facility] 4 mg 1-09 tablet by ity of disintegrat 00:00: mouth [place] ing tablet 00 every 6 Medica l (six) Branch hours as needed for Nausea and Vomiting (N/V). dicyclomine 2021-06 Yes [id number] 20mg Take 1 [facility] 20 mg 1-09 tablet by ity of tablet 00:00: mouth [place] 00 every 6 Medical (six) Branch hours as needed for Abdominal pain. ondansetron 2021-06 Yes [id number] 4mg Take 1 [facility] 4 mg 1-09 tablet by ity of disintegrat 00:00: mouth [place] ing tablet 00 every 6 Medica l (six) Branch hours as needed for Nausea and Vomiting (N/V). dicyclomine 2021-06 Yes [id number] 20mg Take 1 [facility] 20 mg 1-09 tablet by ity of tablet 00:00: mouth [place] 00 every 6 Medical (six) Branch hours as needed for Abdominal pain. ondansetron 2021-06 Yes [id number] 4mg Take 1 [facility] 4 mg 1-09 tablet by ity of disintegrat 00:00: mouth [place] ing tablet 00 every 6 Medica l (six) Branch hours as needed for Nausea and Vomiting (N/V). dicyclomine 2021-06 Yes [id number] 20mg Take 1 [facility] 20 mg 1-09 tablet by ity of tablet 00:00: mouth [place] 00 every 6 Medical (six) Branch hours as needed for Abdominal pain. ondansetron 2021-06 Yes [id number] 4mg Take 1 [facility] 4 mg 1-09 tablet by ity of disintegrat 00:00: mouth [place] ing tablet 00 every 6 Medica l (six) Branch hours as needed for Nausea and Vomiting (N/V). dicyclomine 2021-06 Yes [id number] 20mg Take 1 [facility] 20 mg 1-09 tablet by ity of tablet 00:00: mouth [place] 00 every 6 Medical (six) Branch hours as needed for Abdominal pain. ondansetron 2021-06 Yes [id number] 4mg Take 1 [facility] 4 mg 1-09 tablet by ity of disintegrat 00:00: mouth [place] ing tablet 00 every 6 Medica l (six) Branch hours as needed for Nausea and Vomiting (N/V). dicyclomine 2021-06 Yes [id number] 20mg Take 1 [facility] 20 mg 1-09 tablet by ity of tablet 00:00: mouth [place] 00 every 6 Medical (six) Branch hours as needed for Abdominal pain. ondansetron 2021-06 Yes [id number] 4mg Take 1 [facility] 4 mg 1-09 tablet by ity of disintegrat 00:00: mouth [place] ing tablet 00 every 6 Medica l (six) Branch hours as needed for Nausea and Vomiting (N/V). dicyclomine 2021-06 Yes [id number] 20mg Take 1 [facility] 20 mg 1-09 tablet by ity of tablet 00:00: mouth [place] 00 every 6 Medical (six) Branch hours as needed for Abdominal pain. ondansetron 2021-06 Yes [id number] 4mg Take 1 [facility] 4 mg 1-09 tablet by ity of disintegrat 00:00: mouth [place] ing tablet 00 every 6 Medica l (six) Branch hours as needed for Nausea and Vomiting (N/V). dicyclomine 2021-06 Yes [id number] 20mg Take 1 [facility] 20 mg 1-09 tablet by ity of tablet 00:00: mouth [place] 00 every 6 Medical (six) Branch hours as needed for Abdominal pain. ondansetron 2021-06 Yes [id number] 4mg Take 1 [facility] 4 mg 1-09 tablet by ity of disintegrat 00:00: mouth [place] ing tablet 00 every 6 Medica l (six) Branch hours as needed for Nausea and Vomiting (N/V). dicyclomine 2021-06 Yes [id number] 20mg Take 1 [facility] 20 mg 1-09 tablet by ity of tablet 00:00: mouth [place] 00 every 6 Medical (six) Branch hours as needed for Abdominal pain. ondansetron 2021-06 Yes [id number] 4mg Take 1 [facility] 4 mg 1-09 tablet by ity of disintegrat 00:00: mouth [place] ing tablet 00 every 6 Medica l (six) Branch hours as needed for Nausea and Vomiting (N/V). dicyclomine 2021-06 Yes [id number] 20mg Take 1 [facility] 20 mg 1-09 tablet by ity of tablet 00:00: mouth [place] 00 every 6 Medical (six) Branch hours as needed for Abdominal pain. ondansetron 2021-06 Yes [id number] 4mg Take 1 [facility] 4 mg 1-09 tablet by ity of disintegrat 00:00: mouth [place] ing tablet 00 every 6 Medica l (six) Branch hours as needed for Nausea and Vomiting (N/V). dicyclomine 2021-06 Yes [id number] 20mg Take 1 [facility] 20 mg 1-09 tablet by ity of tablet 00:00: mouth [place] 00 every 6 Medical (six) Branch hours as needed for Abdominal pain. ondansetron 2021-06 Yes [id number] 4mg Take 1 [facility] 4 mg 1-09 tablet by ity of disintegrat 00:00: mouth [place] ing tablet 00 every 6 Medica l (six) Branch hours as needed for Nausea and Vomiting (N/V). dicyclomine 2021-06 Yes [id number] 20mg Take 1 [facility] 20 mg 1-09 tablet by ity of tablet 00:00: mouth [place] 00 every 6 Medical (six) Branch hours as needed for Abdominal pain. ondansetron 2021-06- No [id number] 4mg Take 1 [facility] 4 mg 1-09 05-02 tablet by ity of disintegrat 00:00: 00:00 mouth [place] ing tablet 00 :00 every 6 Medica l (six) Branch hours as needed for Nausea and Vomiting (N/V). dicyclomine 2021-06- No [id number] 20mg Take 1 [facility] 20 mg 1-09 05-02 tablet by ity of tablet 00:00: 00:00 mouth [place] 00 :00 every 6 Medical (six) Branch hours as needed for Abdominal pain. ondansetron 2021-06- No [id number] 4mg Take 1 [facility] 4 mg 1-09 05-02 tablet by ity of disintegrat 00:00: 00:00 mouth [place] ing tablet 00 :00 every 6 Medica l (six) Branch hours as needed for Nausea and Vomiting (N/V). dicyclomine 2021-06- No [id number] 20mg Take 1 [facility] 20 mg 1-09 05-02 tablet by ity of tablet 00:00: 00:00 mouth [place] 00 :00 every 6 Medical (six) Branch hours as needed for Abdominal pain. doxycycline 2021- No [id number] 100mg Take 1 [facility] hyclate 100 02-28 09-10 [id number] tablet by ity of mg tablet 00:00: 04:59 mouth [place] 00 :00 the Medical morning Branch and 1 tablet in the evening. Do all this for 7 days. FENTanyl PF 2021- No 50ug 50 mcg, Un hien (SUBLIMAZE 10-24 Intramuscu it y of (PF)) 18:30: 17:40 lar, ONCE, [place] injection 00 :00 1 dose, On Medi kory 50 mcg [place] Branch 10/24/21 at 1330, Routine methocarbam No 1000mg 1,000 mg, Univers oL 10-24 [...] Medical [place] [facility] 10/24/21 at 1330, Routine
produce service team member approving Restricted medication : ROSLYN JAVIER gabapentin 2021- No 300mg 300 mg, Un hien (NEURONTIN) 10-24 Oral, ity of capsule 300 18:15: 17:39 ONCE, 1 [place] mg 00 :00 dose, On Medical [place] Branch 10/24/21 at 1315, DARIO methocarbam 2021- No [id number] 750mg Take 1 [facility] oL 750 mg 10-24 tablet by ity of tablet 00:00: 04:59 mouth 4 [place] 00 :00 (four) Medical times Branch daily for 7 days. ibuprofen 2021- No [id number] 600mg Take 1 [facility] (IBU) 600 10-2406 tablet by ity of mg tablet 00:00: 04:59 mouth [place] 00 :00 every 6 Medical (six) Branch hours for 7 days. ondansetron 2021- No 4mg 4 mg, Slow [facility] (ZOFRAN 10-18 IV Push, ity of (PF)) 14:45: 13:42 ONCE, 1 [place] injection 4 00 :00 dose, On Medi kory mg Fri Branch 10/18/21 at 0945, DARIO ketorolac 2021- [...] of succ 14:45: 13:46 s, ONCE, 1 [place] (SOLU-MEDRO 00 :00 dose, On Medi kory L (PF)) Fri Branch injection 10/18/21 at 40 mg 0945, STAT lidocaine 5 Yes [id number] Apply one [facility] % (700 4-22 patch to ity of mg/patch) 00:00: most [place] patch 00 painful Medical area up to Branch 12 hours a day, as needed for pain. PHARMACIST : dispense one box lidocaine 5 0 Yes [id number] Apply one [facility] % (700 4-22 patch to ity of mg/patch) 00:00: most [place] patch 00 painful Medical area up to Branch 12 hours a day, as needed for pain. PHARMACIST : dispense one box lidocaine 5 2021-0 Yes [id number] Apply one [facility] % (700 4-22 patch to ity of mg/patch) 00:00: most [place] patch 00 painful Medical area up to Branch 12 hours a day, as needed for pain. PHARMACIST : dispense one box lidocaine 5 2021-0 Yes [id number] Apply one [facility] % (700 4-22 patch to ity of mg/patch) 00:00: most [place] patch 00 painful Medical area up to Branch 12 hours a day, as needed for pain. PHARMACIST : dispense one box lidocaine 5 2021-0 Yes [id number] Apply one [facility] % (700 4-22 patch to ity of mg/patch) 00:00: most [place] patch 00 painful Medical area up to Branch 12 hours a day, as needed for pain. PHARMACIST : dispense one box lidocaine 5 2021-0 Yes [id number] Apply one [facility] % (700 4-22 patch to ity of mg/patch) 00:00: most [place] patch 00 painful Medical area up to Branch 12 hours a day, as needed for pain. PHARMACIST : dispense one box lidocaine 5 2021-0 Yes [id number] Apply one [facility] % (700 4-22 patch to ity of mg/patch) 00:00: most [place] patch 00 painful Medical area up to Branch 12 hours a day, as needed for pain. PHARMACIST : dispense one box lidocaine 5 2021-0 Yes [id number] Apply one [facility] % (700 4-22 patch to ity of mg/patch) 00:00: most [place] patch 00 painful Medical area up to Branch 12 hours a day, as needed for pain. PHARMACIST : dispense one box lidocaine 5 2021-0 Yes [id number] Apply one [facility] % (700 4-22 patch to ity of mg/patch) 00:00: most [place] patch 00 painful Medical area up to Branch 12 hours a day, as needed for pain. PHARMACIST : dispense one box lidocaine 5 2021-0 Yes [id number] Apply one [facility] % (700 4-22 patch to ity of mg/patch) 00:00: most [place] patch 00 painful Medical area up to Branch 12 hours a day, as needed for pain. PHARMACIST : dispense one box lidocaine 5 2021-0 Yes [id number] Apply one [facility] % (700 4-22 patch to ity of mg/patch) 00:00: most [place] patch 00 painful Medical area up to Branch 12 hours a day, as needed for pain. PHARMACIST : dispense one box lidocaine 5 2021-0 Yes [id number] Apply one [facility] % (700 4-22 patch to ity of mg/patch) 00:00: most [place] patch 00 painful Medical area up to Branch 12 hours a day, as needed for pain. PHARMACIST : dispense one box lidocaine 5 2021-0 Yes [id number] Apply one [facility] % (700 4-22 patch to ity of mg/patch) 00:00: most [place] patch 00 painful Medical area up to Branch 12 hours a day, as needed for pain. PHARMACIST : dispense one box lidocaine 5 2021-0 Yes [id number] Apply one [facility] % (700 4-22 patch to ity of mg/patch) 00:00: most [place] patch 00 painful Medical area up to Branch 12 hours a day, as needed for pain. PHARMACIST : dispense one box lidocaine 5 2021-0 Yes [id number] Apply one [facility] % (700 4-22 patch to ity of mg/patch) 00:00: most [place] patch 00 painful Medical area up to Branch 12 hours a day, as needed for pain. PHARMACIST : dispense one box lidocaine 5 2021-0 Yes [id number] Apply one [facility] % (700 4-22 patch to ity of mg/patch) 00:00: most [place] patch 00 painful Medical area up to Branch 12 hours a day, as needed for pain. PHARMACIST : dispense one box lidocaine 5 2021-0 Yes [id number] Apply one [facility] % (700 4-22 patch to ity of mg/patch) 00:00: most [place] patch 00 painful Medical area up to Branch 12 hours a day, as needed for pain. PHARMACIST : dispense one box lidocaine 5 2021-0 Yes [id number] Apply one [facility] % (700 4-22 patch to ity of mg/patch) 00:00: most [place] patch 00 painful Medical area up to Branch 12 hours a day, as needed for pain. PHARMACIST : dispense one box lidocaine 5 2021-0 Yes [id number] Apply one [facility] % (700 4-22 patch to ity of mg/patch) 00:00: most [place] patch 00 painful Medical area up to Branch 12 hours a day, as needed for pain. PHARMACIST : dispense one box lidocaine 5 2021-0 Yes [id number] Apply one [facility] % (700 4-22 patch to ity of mg/patch) 00:00: most [place] patch 00 painful Medical area up to Branch 12 hours a day, as needed for pain. PHARMACIST : dispense one box lidocaine 5 2021-0 Yes [id number] Apply one [facility] % (700 4-22 patch to ity of mg/patch) 00:00: most [place] patch 00 painful Medical area up to Branch 12 hours a day, as needed for pain. PHARMACIST : dispense one box lidocaine 5 2021-0 Yes [id number] Apply one [facility] % (700 4-22 patch to ity of mg/patch) 00:00: most [place] patch 00 painful Medical area up to Branch 12 hours a day, as needed for pain. PHARMACIST : dispense one box lidocaine 5 2021-0 Yes [id number] Apply one [facility] % (700 4-22 patch to ity of mg/patch) 00:00: most [place] patch 00 painful Medical area up to Branch 12 hours a day, as needed for pain. PHARMACIST : dispense one box lidocaine 5 2021-0 Yes [id number] Apply one [facility] % (700 4-22 patch to ity of mg/patch) 00:00: most [place] patch 00 painful Medical area up to Branch 12 hours a day, as needed for pain. PHARMACIST : dispense one box lidocaine 5 2021-0 Yes [id number] Apply one [facility] % (700 4-22 patch to ity of mg/patch) 00:00: most [place] patch 00 painful Medical area up to Branch 12 hours a day, as needed for pain. PHARMACIST : dispense one box lidocaine 5 2021-0 Yes [id number] Apply one [facility] % (700 4-22 patch to ity of mg/patch) 00:00: most [place] patch 00 painful Medical area up to Branch 12 hours a day, as needed for pain. PHARMACIST : dispense one box lidocaine 5 2021-0 Yes [id number] Apply one [facility] % (700 4-22 patch to ity of mg/patch) 00:00: most [place] patch 00 painful Medical area up to Branch 12 hours a day, as needed for pain. PHARMACIST : dispense one box lidocaine 5 2021-0 Yes [id number] Apply one [facility] % (700 4-22 patch to ity of mg/patch) 00:00: most [place] patch 00 painful Medical area up to Branch 12 hours a day, as needed for pain. PHARMACIST : dispense one box lidocaine 5 2021-0 Yes [id number] Apply one [facility] % (700 4-22 patch to ity of mg/patch) 00:00: most [place] patch 00 painful Medical area up to Branch 12 hours a day, as needed for pain. PHARMACIST : dispense one box lidocaine 5 2021-0 Yes [id number] Apply one [facility] % (700 4-22 patch to ity of mg/patch) 00:00: most [place] patch 00 painful Medical area up to Branch 12 hours a day, as needed for pain. PHARMACIST : dispense one box lidocaine 5 Yes [id number] Apply one [facility] % (700 4-22 patch to ity of mg/patch) 00:00: most [place] patch 00 painful Medical area up to Branch 12 hours a day, as needed for pain. PHARMACIST : dispense one box predniSONE 2- No [id number] 40mg Take 2 [facility] 20 mg 4-22 04-30 tablets by ity of tablet 00:00: 04:59 mouth [place] 00 :00 daily for Medical 7 days. Branch predniSONE 2021- No [id number] 40mg Take 2 [facility] 20 mg 4-22 04-30 tablets by ity of tablet 00:00: 04:59 mouth [place] 00 :00 daily for Medical 7 days. Branch cyclobenzap 2020-06 Yes [id number] 5mg Take 1 [facility] rine 5 mg 0-07 tablet by ity o f tablet 00:00: mouth 3 [place] 00 (three) Medical times Branch daily as needed for Muscle Spasms. cyclobenzap 2020-06 Yes [id number] 5mg Take 1 [facility] rine 5 mg 0-07 tablet by ity o f tablet 00:00: mouth 3 [place] 00 (three) Medical times Branch daily as needed for Muscle Spasms. cyclobenzap 2020-06 Yes [id number] 5mg Take 1 [facility] rine 5 mg 0-07 tablet by ity o f tablet 00:00: mouth 3 [place] 00 (three) Medical times Branch daily as needed for Muscle Spasms. ibuprofen 2020-06 Yes [id number] 600mg Take 1 [facility] (IBU) 600 0-07 tablet by ity o f mg tablet 00:00: mouth [place] 00 every 6 Medical (six) Branch hours as needed for Pain (scale 4-6). cyclobenzap 2020-06 Yes [id number] 5mg Take 1 [facility] rine 5 mg 0-07 tablet by ity o f tablet 00:00: mouth 3 [place] 00 (three) Medical times Branch daily as needed for Muscle Spasms. ibuprofen 2020-06 Yes [id number] 600mg Take 1 [facility] (IBU) 600 0-07 tablet by ity o f mg tablet 00:00: mouth [place] 00 every 6 Medical (six) Branch hours as needed for Pain (scale 4-6). cyclobenzap 2020-06 Yes [id number] 5mg Take 1 [facility] rine 5 mg 0-07 tablet by ity o f tablet 00:00: mouth 3 [place] 00 (three) Medical times Branch daily as needed for Muscle Spasms. ibuprofen 2020-06 Yes [id number] 600mg Take 1 [facility] (IBU) 600 0-07 tablet by ity o f mg tablet 00:00: mouth [place] 00 every 6 Medical (six) Branch hours as needed for Pain (scale 4-6). cyclobenzap 2020-06 Yes [id number] 5mg Take 1 [facility] rine 5 mg 0-07 tablet by ity o f tablet 00:00: mouth 3 [place] 00 (three) Medical times Branch daily as needed for Muscle Spasms. ibuprofen 2020-06 Yes [id number] 600mg Take 1 [facility] (IBU) 600 0-07 tablet by ity o f mg tablet 00:00: mouth [place] 00 every 6 Medical (six) Branch hours as needed for Pain (scale 4-6). cyclobenzap 2020-06 Yes [id number] 5mg Take 1 [facility] rine 5 mg 0-07 tablet by ity o f tablet 00:00: mouth 3 [place] 00 (three) Medical times Branch daily as needed for Muscle Spasms. ibuprofen 2020-06 Yes [id number] 600mg Take 1 [facility] (IBU) 600 0-07 tablet by ity o f mg tablet 00:00: mouth [place] 00 every 6 Medical (six) Branch hours as needed for Pain (scale 4-6). cyclobenzap 2020-06 Yes [id number] 5mg Take 1 [facility] rine 5 mg 0-07 tablet by ity o f tablet 00:00: mouth 3 [place] 00 (three) Medical times Branch daily as needed for Muscle Spasms. cyclobenzap 2020-06 Yes [id number] 5mg Take 1 [facility] rine 5 mg 0-07 tablet by ity o f tablet 00:00: mouth 3 [place] 00 (three) Medical times Branch daily as needed for Muscle Spasms. cyclobenzap 2020-06 Yes [id number] 5mg Take 1 [facility] rine 5 mg 0-07 tablet by ity o f tablet 00:00: mouth 3 [place] 00 (three) Medical times Branch daily as needed for Muscle Spasms. cyclobenzap 2020-06 Yes [id number] 5mg Take 1 [facility] rine 5 mg 0-07 tablet by ity o f tablet 00:00: mouth 3 00 (three) Medical times Branch daily as needed for Muscle Spasms. cyclobenzap 2020-06 Yes [id number] 5mg Take 1 [facility] rine 5 mg 0-07 tablet by ity o f tablet 00:00: mouth 3 00 (three) Medical times Branch daily as needed for Muscle Spasms. cyclobenzap 2020-06 Yes [id number] 5mg Take 1 [facility] rine 5 mg 0-07 tablet by ity o f tablet 00:00: mouth 3 00 (three) Medical times Branch daily as needed for Muscle Spasms. cyclobenzap 2020-06 Yes [id number] 5mg Take 1 [facility] rine 5 mg 0-07 tablet by ity o f tablet 00:00: mouth 3 (three) Medical times Branch daily as needed for Muscle Spasms. cyclobenzap 2020-06 Yes [id number] 5mg Take 1 [facility] rine 5 mg 0-07 tablet by ity o f tablet 00:00: mouth 3 (three) Medical times Branch daily as needed for Muscle Spasms. cyclobenzap 2020-06 Yes [id number] 5mg Take 1 [facility] rine 5 mg 0-07 tablet by ity o f tablet 00:00: mouth 3 (three) Medical times Branch daily as needed for Muscle Spasms. cyclobenzap 2020-06 Yes [id number] 5mg Take 1 [facility] rine 5 mg 0-07 tablet by ity o f tablet 00:00: mouth 3 00 (three) Medical times Branch daily as needed for Muscle Spasms. cyclobenzap 2020-06 Yes [id number] 5mg Take 1 [facility] rine 5 mg 0-07 tablet by ity o f tablet 00:00: mouth 3 00 (three) Medical times Branch daily as needed for Muscle Spasms. cyclobenzap 2020-06 Yes [id number] 5mg Take 1 [facility] rine 5 mg 0-07 tablet by ity o f tablet 00:00: mouth 3 00 (three) Medical times Branch daily as needed for Muscle Spasms. cyclobenzap 2020-06 Yes [id number] 5mg Take 1 [facility] rine 5 mg 0-07 tablet by ity o f tablet 00:00: mouth 3 00 (three) Medical times Branch daily as needed for Muscle Spasms. cyclobenzap 2020-06 Yes [id number] 5mg Take 1 [facility] rine 5 mg 0-07 tablet by ity o f tablet 00:00: mouth 3 00 (three) Medical times Branch daily as needed for Muscle Spasms. cyclobenzap 2020-06 Yes [id number] 5mg Take 1 [facility] rine 5 mg 0-07 tablet by ity o f tablet 00:00: mouth 3 00 (three) Medical times Branch daily as needed for Muscle Spasms. cyclobenzap 2020-06 Yes [id number] 5mg Take 1 [facility] rine 5 mg 0-07 tablet by ity o f tablet 00:00: mouth 3 00 (three) Medical times Branch daily as needed for Muscle Spasms. cyclobenzap 2020-06 Yes [id number] 5mg Take 1 [facility] rine 5 mg 0-07 tablet by ity o f tablet 00:00: mouth 3 (three) Medical times Branch daily as needed for Muscle Spasms. cyclobenzap 2020-06 Yes [id number] 5mg Take 1 [facility] rine 5 mg 0-07 tablet by ity o f tablet 00:00: mouth 3 00 (three) Medical times Branch daily as needed for Muscle Spasms. cyclobenzap 2020-06 Yes [id number] 5mg Take 1 [facility] rine 5 mg 0-07 tablet by ity o f tablet 00:00: mouth 3 00 (three) Medical times Branch daily as needed for Muscle Spasms. cyclobenzap 2020-06 Yes [id number] 5mg Take 1 [facility] rine 5 mg 0-07 tablet by ity o f tablet 00:00: mouth 3 00 (three) Medical times Branch daily as needed for Muscle Spasms. cyclobenzap 2020-06 Yes [id number] 5mg Take 1 [facility] rine 5 mg 0-07 tablet by ity o f tablet 00:00: mouth 3 00 (three) Medical times Branch daily as needed for Muscle Spasms. cyclobenzap 2020-06 Yes [id number] 5mg Take 1 [facility] rine 5 mg 0-07 tablet by ity o f tablet 00:00: mouth 3 00 (three) Medical times Branch daily as needed for Muscle Spasms. cyclobenzap 2020-06 Yes [id number] 5mg Take 1 [facility] rine 5 mg 0-07 tablet by ity o f tablet 00:00: mouth 3 [place] 00 (three) Medical times Branch daily as needed for Muscle Spasms. cyclobenzap 2020-06 Yes [id number] 5mg Take 1 [facility] rine 5 mg 0-07 tablet by ity o f tablet 00:00: mouth 3 [place] 00 (three) Medical times Branch daily as needed for Muscle Spasms. cyclobenzap 2020-06 Yes [id number] 5mg Take 1 [facility] rine 5 mg 0-07 tablet by ity o f tablet 00:00: mouth 3 [place] 00 (three) Medical times Branch daily as needed for Muscle Spasms. cyclobenzap 2020-06 Yes [id number] 5mg Take 1 [facility] rine 5 mg 0-07 tablet by ity o f tablet 00:00: mouth 3 [place] 00 (three) Medical times Branch daily as needed for Muscle Spasms. cyclobenzap 2020-06 Yes [id number] 5mg Take 1 [facility] rine 5 mg 0-07 tablet by ity o f tablet 00:00: mouth 3 [place] 00 (three) Medical times Branch daily as needed for Muscle Spasms. cyclobenzap 2020-06 Yes [id number] 5mg Take 1 [facility] rine 5 mg 0-07 tablet by ity o f tablet 00:00: mouth 3 [place] 00 (three) Medical times Branch daily as needed for Muscle Spasms. ibuprofen 2020-06- No [id number] 600mg Take 1 [facility] (IBU) 600 0-07 [...] 52 every Medical tablet morning. Branch levothyroxi 2019- Yes 125ug Take 125 U nivers ne 1-16 mcg by ity of (SYNTHROID) 14:19: mouth [place] 112 mcg 52 every Medical tablet morning. Branch levothyroxi 2019- Yes 125ug Take 125 U nivers ne 1-16 mcg by ity of (SYNTHROID) 14:19: mouth [place] 112 mcg 52 every Medical tablet morning. Branch levothyroxi 2019- Yes 125ug Take 125 U nivers ne [...] 52 every Medical tablet morning. Branch levothyroxi 2019- Yes 125ug Take 125 U nivers ne [...] 52 every Medical tablet morning. Branch butalbital- 2019-0 Yes [id number] 1{tbl} Take 1 [facility] acetaminoph 9-29 tablet by ity of en-caff 00:00: mouth [place] 50-325-40 00 every 6 Medical mg tablet (six) Branch hours as needed for Pain (scale 7-10). butalbital- 2019-0 Yes [id number] 1{tbl} Take 1 [facility] acetaminoph 9-29 tablet by ity of en-caff 00:00: mouth [place] 50-325-40 00 every 6 Medical mg tablet (six) Branch hours as needed for Pain (scale 7-10). butalbital- 2019-0 Yes [id number] 1{tbl} Take 1 [facility] acetaminoph 9-29 tablet by ity of en-caff 00:00: mouth [place] 50-325-40 00 every 6 Medical mg tablet (six) Branch hours as needed for Pain (scale 7-10). ondansetron 2020-0 Yes [id number] 4mg Take 1 [facility] (ZOFRAN 9-29 tablet by ity of ODT) 4 mg 00:00: mouth [place] disintegrat 00 every 8 Medic al ing tablet (eight) Branch hours as needed for Nausea and Vomiting (N/V). butalbital- 2020-0 Yes [id number] 1{tbl} Take 1 [facility] acetaminoph 9-29 tablet by ity of en-caff 00:00: mouth [place] 50-325-40 00 every 6 Medical mg tablet (six) Branch hours as needed for Pain (scale 7-10). ondansetron 2020-0 Yes [id number] 4mg Take 1 [facility] (ZOFRAN 9-29 tablet by ity of ODT) 4 mg 00:00: mouth [place] disintegrat 00 every 8 Medic al ing tablet (eight) Branch hours as needed for Nausea and Vomiting (N/V). butalbital- 2020-0 Yes [id number] 1{tbl} Take 1 [facility] acetaminoph 9-29 tablet by ity of en-caff 00:00: mouth [place] 50-325-40 00 every 6 Medical mg tablet (six) Branch hours as needed for Pain (scale 7-10). ondansetron 2020-0 Yes [id number] 4mg Take 1 [facility] (ZOFRAN 9-29 tablet by ity of ODT) 4 mg 00:00: mouth [place] disintegrat 00 every 8 Medic al ing tablet (eight) Branch hours as needed for Nausea and Vomiting (N/V). butalbital- 2020-0 Yes [id number] 1{tbl} Take 1 [facility] acetaminoph 9-29 tablet by ity of en-caff 00:00: mouth [place] 50-325-40 00 every 6 Medical mg tablet (six) Branch hours as needed for Pain (scale 7-10). ondansetron 2020-0 Yes [id number] 4mg Take 1 [facility] (ZOFRAN 9-29 tablet by ity of ODT) 4 mg 00:00: mouth [place] disintegrat 00 every 8 Medic al ing tablet (eight) Branch hours as needed for Nausea and Vomiting (N/V). butalbital- 2020-0 Yes [id number] 1{tbl} Take 1 [facility] acetaminoph 9-29 tablet by ity of en-caff 00:00: mouth [place] 50-325-40 00 every 6 Medical mg tablet (six) Branch hours as needed for Pain (scale 7-10). ondansetron 2020-0 Yes [id number] 4mg Take 1 [facility] (ZOFRAN 9-29 tablet by ity of ODT) 4 mg 00:00: mouth [place] disintegrat 00 every 8 Medic al ing tablet (eight) Branch hours as needed for Nausea and Vomiting (N/V). butalbital- 2020-0 Yes [id number] 1{tbl} Take 1 [facility] acetaminoph 9-29 tablet by ity of en-caff 00:00: mouth [place] 50-325-40 00 every 6 Medical mg tablet (six) Branch hours as needed for Pain (scale 7-10). ondansetron 2020-0 Yes [id number] 4mg Take 1 [facility] (ZOFRAN 9-29 tablet by ity of ODT) 4 mg 00:00: mouth [place] disintegrat 00 every 8 Medic al ing tablet (eight) Branch hours as needed for Nausea and Vomiting (N/V). butalbital- 2020-0 Yes [id number] 1{tbl} Take 1 [facility] acetaminoph 9-29 tablet by ity of en-caff 00:00: mouth [place] 50-325-40 00 every 6 Medical mg tablet (six) Branch hours as needed for Pain (scale 7-10). ondansetron 2020-0 Yes [id number] 4mg Take 1 [facility] (ZOFRAN 9-29 tablet by ity of ODT) 4 mg 00:00: mouth [place] disintegrat 00 every 8 Medic al ing tablet (eight) Branch hours as needed for Nausea and Vomiting (N/V). butalbital- 2020-0 Yes [id number] 1{tbl} Take 1 [facility] acetaminoph 9-29 tablet by ity of en-caff 00:00: mouth [place] 50-325-40 00 every 6 Medical mg tablet (six) Branch hours as needed for Pain (scale 7-10). butalbital- 2020-0 Yes [id number] 1{tbl} Take 1 [facility] acetaminoph 9-29 tablet by ity of en-caff 00:00: mouth [place] 50-325-40 00 every 6 Medical mg tablet (six) Branch hours as needed for Pain (scale 7-10). butalbital- 2020-0 Yes [id number] 1{tbl} Take 1 [facility] acetaminoph 9-29 tablet by ity of en-caff 00:00: mouth [place] 50-325-40 00 every 6 Medical mg tablet (six) Branch hours as needed for Pain (scale 7-10). butalbital- 2020-0 Yes [id number] 1{tbl} Take 1 [facility] acetaminoph 9-29 tablet by ity of en-caff 00:00: mouth [place] 50-325-40 00 every 6 Medical mg tablet (six) Branch hours as needed for Pain (scale 7-10). butalbital- 2020-0 Yes [id number] 1{tbl} Take 1 [facility] acetaminoph 9-29 tablet by ity of en-caff 00:00: mouth [place] 50-325-40 00 every 6 Medical mg tablet (six) Branch hours as needed for Pain (scale 7-10). butalbital- 2020-0 Yes [id number] 1{tbl} Take 1 [facility] acetaminoph 9-29 tablet by ity of en-caff 00:00: mouth [place] 50-325-40 00 every 6 Medical mg tablet (six) Branch hours as needed for Pain (scale 7-10). butalbital- 2020-0 Yes [id number] 1{tbl} Take 1 [facility] acetaminoph 9-29 tablet by ity of en-caff 00:00: mouth [place] 50-325-40 00 every 6 Medical mg tablet (six) Branch hours as needed for Pain (scale 7-10). butalbital- 2020-0 Yes [id number] 1{tbl} Take 1 [facility] acetaminoph 9-29 tablet by ity of en-caff 00:00: mouth [place] 50-325-40 00 every 6 Medical mg tablet (six) Branch hours as needed for Pain (scale 7-10). butalbital- 2020-0 Yes [id number] 1{tbl} Take 1 [facility] acetaminoph 9-29 tablet by ity of en-caff 00:00: mouth [place] 50-325-40 00 every 6 Medical mg tablet (six) Branch hours as needed for Pain (scale 7-10). butalbital- 2020-0 Yes [id number] 1{tbl} Take 1 [facility] acetaminoph 9-29 tablet by ity of en-caff 00:00: mouth [place] 50-325-40 00 every 6 Medical mg tablet (six) Branch hours as needed for Pain (scale 7-10). butalbital- 2020-0 Yes [id number] 1{tbl} Take 1 [facility] acetaminoph 9-29 tablet by ity of en-caff 00:00: mouth [place] 50-325-40 00 every 6 Medical mg tablet (six) Branch hours as needed for Pain (scale 7-10). butalbital- 2020-0 Yes [id number] 1{tbl} Take 1 [facility] acetaminoph 9-29 tablet by ity of en-caff 00:00: mouth [place] 50-325-40 00 every 6 Medical mg tablet (six) Branch hours as needed for Pain (scale 7-10). butalbital- 2020-0 Yes [id number] 1{tbl} Take 1 [facility] acetaminoph 9-29 tablet by ity of en-caff 00:00: mouth [place] 50-325-40 00 every 6 Medical mg tablet (six) Branch hours as needed for Pain (scale 7-10). butalbital- 2020-0 Yes [id number] 1{tbl} Take 1 [facility] acetaminoph 9-29 tablet by ity of en-caff 00:00: mouth [place] 50-325-40 00 every 6 Medical mg tablet (six) Branch hours as needed for Pain (scale 7-10). butalbital- 2020-0 Yes [id number] 1{tbl} Take 1 [facility] acetaminoph 9-29 tablet by ity of en-caff 00:00: mouth [place] 50-325-40 00 every 6 Medical mg tablet (six) Branch hours as needed for Pain (scale 7-10). butalbital- 2020-0 Yes [id number] 1{tbl} Take 1 [facility] acetaminoph 9-29 tablet by ity of en-caff 00:00: mouth [place] 50-325-40 00 every 6 Medical mg tablet (six) Branch hours as needed for Pain (scale 7-10). butalbital- 2020-0 Yes [id number] 1{tbl} Take 1 [facility] acetaminoph 9-29 tablet by ity of en-caff 00:00: mouth [place] 50-325-40 00 every 6 Medical mg tablet (six) Branch hours as needed for Pain (scale 7-10). butalbital- 2020-0 Yes [id number] 1{tbl} Take 1 [facility] acetaminoph 9-29 tablet by ity of en-caff 00:00: mouth [place] 50-325-40 00 every 6 Medical mg tablet (six) Branch hours as needed for Pain (scale 7-10). butalbital- 2020-0 Yes [id number] 1{tbl} Take 1 [facility] acetaminoph 9-29 tablet by ity of en-caff 00:00: mouth [place] 50-325-40 00 every 6 Medical mg tablet (six) Branch hours as needed for Pain (scale 7-10). butalbital- 2020-0 Yes [id number] 1{tbl} Take 1 [facility] acetaminoph 9-29 tablet by ity of en-caff 00:00: mouth [place] 50-325-40 00 every 6 Medical mg tablet (six) Branch hours as needed for Pain (scale 7-10). butalbital- 2020-0 Yes [id number] 1{tbl} Take 1 [facility] acetaminoph 9-29 tablet by ity of en-caff 00:00: mouth [place] 50-325-40 00 every 6 Medical mg tablet (six) Branch hours as needed for Pain (scale 7-10). butalbital- 2020-0 Yes [id number] 1{tbl} Take 1 [facility] acetaminoph 9-29 tablet by ity of en-caff 00:00: mouth [place] 50-325-40 00 every 6 Medical mg tablet (six) Branch hours as needed for Pain (scale 7-10). butalbital- 2020-0 Yes [id number] 1{tbl} Take 1 [facility] acetaminoph 9-29 tablet by ity of en-caff 00:00: mouth [place] 50-325-40 00 every 6 Medical mg tablet (six) Branch hours as needed for Pain (scale 7-10). butalbital- 2020-0 Yes [id number] 1{tbl} Take 1 [facility] acetaminoph 9-29 tablet by ity of en-caff 00:00: mouth [place] 50-325-40 00 every 6 Medical mg tablet (six) Branch hours as needed for Pain (scale 7-10). butalbital- 2020-0 Yes [id number] 1{tbl} Take 1 [facility] acetaminoph 9-29 tablet by ity of en-caff 00:00: mouth [place] 50-325-40 00 every 6 Medical mg tablet (six) Branch hours as needed for Pain (scale 7-10). butalbital- 2020-0 Yes [id number] 1{tbl} Take 1 [facility] acetaminoph 9-29 tablet by ity of en-caff 00:00: mouth [place] 50-325-40 00 every 6 Medical mg tablet (six) Branch hours as needed for Pain (scale 7-10). ondansetron 2019-2021- No [id number] 4mg Take 1 [facility] (ZOFRAN 9-29 11-09 tablet by ity of ODT) 4 mg 00:00: 00:00 mouth [place] disintegrat 00 :00 every 8 Medic al ing tablet (eight) Branch hours as needed for Nausea and Vomiting (N/V). zolpidem 10 2020-0 Yes 5mg Take 5 mg U nivers mg tablet 9-25 by mouth ity of 14:22: at bedtime [place] [address] as needed Medical for Branch Insomnia. zolpidem 10 2020-0 Yes 5mg Take 5 mg U nivers mg tablet 9-25 by mouth ity of 14:22: at bedtime [place] [address] as needed Medical for Branch Insomnia. cyanocobala 2020-0 Yes 1000ug Inject Un hien min, 9-25 1,000 mcg ity of vitamin 14:22: as [place] B-12, (B-12 38 directed Medi [facility] COMPLIANCE) once every Br anch 1,000 month. mcg/mL Taken the injection beginning of the month zolpidem 10 2020-0 Yes 5mg Take 5 mg U nivers mg tablet 9-25 by mouth ity of 14:22: at bedtime [place] [address] as needed Medical for Branch Insomnia. cyanocobala [...] Medi kory COMPLIANCE) once every Br anch ,000 month. mcg/mL Taken the injection beginning of [...] 1,000 mcg ity of vitamin 14:22: as B-12, ( 38 directed Medi kory COMPLIANCE) [...] by mouth ity of 14:22: at bedtime [place] 38 as needed Medical for Branch Insomnia. [...] by mouth ity of 14:22: at bedtime [place] 38 as needed Medical for Branch Insomnia. [...] by mouth ity of 14:22: at bedtime [place] [address] as needed Medical for Branch Insomnia. cyanocobala 2020-0 Yes 1000ug Inject Un hien min, 9-25 1,000 mcg ity of vitamin 14:22: as B-12, ( 38 directed Medi kory COMPLIANCE) once every Br anch 1,000 month. mcg/mL Taken the injection beginning of the month zolpidem 10 2020-0 Yes 5mg Take 5 mg U nivers mg tablet 9-25 by mouth ity of 14:22: at bedtime [place] [address] as needed Medical for Branch Insomnia. zolpidem 10 2020-0 Yes 5mg Take 5 mg U nivers mg tablet 9-25 by mouth ity of 14:22: at bedtime [place] [address] as needed Medical for Branch Insomnia. zolpidem 10 2020-0 Yes 5mg Take 5 mg U nivers mg tablet 9-25 by mouth ity of 14:22: at bedtime [place] 38 as needed Medical for Branch Insomnia. zolpidem 10 2020-0 Yes 5mg Take 5 mg U nivers mg tablet 9-25 by mouth ity of 14:22: at bedtime [place] [address] as needed Medical for Branch Insomnia. zolpidem 10 2020-0 Yes 5mg Take 5 mg U nivers mg tablet 9-25 by mouth ity of 14:22: at bedtime [place] 38 as needed Medical for Branch Insomnia. zolpidem 10 2020-0 Yes 5mg Take 5 mg U nivers mg tablet 9-25 by mouth ity of 14:22: at bedtime [place] 38 as needed Medical for Branch Insomnia. zolpidem 10 2020-0 Yes 5mg Take 5 mg U nivers mg tablet 9-25 by mouth ity of 14:22: at bedtime [place] 38 as needed Medical for Branch Insomnia. zolpidem 10 2020-0 Yes 5mg Take 5 mg U nivers mg tablet 9-25 by mouth ity of 14:22: at bedtime [place] 38 as needed Medical for Branch Insomnia. zolpidem 10 2020-0 Yes 5mg Take 5 mg U nivers mg tablet 9-25 by mouth ity of 14:22: at bedtime [place] 38 as needed Medical for Branch Insomnia. zolpidem 10 2020-0 Yes 5mg Take 5 mg U nivers mg tablet 9-25 by mouth ity of 14:22: at bedtime [place] 38 as needed Medical for Branch Insomnia. zolpidem 10 2020-0 Yes 5mg Take 5 mg U nivers mg tablet 9-25 by mouth ity of 14:22: at bedtime [place] 38 as needed Medical for Branch Insomnia. zolpidem 10 2020-0 Yes 5mg Take 5 mg U nivers mg tablet 9-25 by mouth ity of 14:22: at bedtime [place] 38 as needed Medical for Branch Insomnia. zolpidem 10 2020-0 Yes 5mg Take 5 mg U nivers mg tablet 9-25 by mouth ity of 14:22: at bedtime [place] 38 as needed Medical for Branch Insomnia. zolpidem 10 2020-0 Yes 5mg Take 5 mg U nivers mg tablet 9-25 by mouth ity of 14:22: at bedtime [place] 38 as needed Medical for Branch Insomnia. zolpidem 10 2020-0 Yes 5mg Take 5 mg U nivers mg tablet 9-25 by mouth ity of 14:22: at bedtime [place] 38 as needed Medical for Branch Insomnia. zolpidem 10 2020-0 Yes 5mg Take 5 mg U nivers mg tablet 9-25 by mouth ity of 14:22: at bedtime [place] 38 as needed Medical for Branch Insomnia. zolpidem 10 2020-0 Yes 5mg Take 5 mg U nivers mg tablet 9-25 by mouth ity of 14:22: at bedtime [place] 38 as needed Medical for Branch Insomnia. zolpidem 10 2020-0 Yes 5mg Take 5 mg U nivers mg tablet 9-25 by mouth ity of 14:22: at bedtime [place] 38 as needed Medical for Branch Insomnia. zolpidem 10 2020-0 Yes 5mg Take 5 mg U nivers mg tablet 9-25 by mouth ity of 14:22: at bedtime [place] 38 as needed Medical for Branch Insomnia. zolpidem 10 2020-0 Yes 5mg Take 5 mg U nivers mg tablet 9-25 by mouth ity of 14:22: at bedtime [place] 38 as needed Medical for Branch Insomnia. zolpidem 10 2020-0 Yes 5mg Take 5 mg U nivers mg tablet 9-25 by mouth ity of 14:22: at bedtime [place] 38 as needed Medical for Branch Insomnia. zolpidem 10 2020-0 Yes 5mg Take 5 mg U nivers mg tablet 9-25 by mouth ity of 14:22: at bedtime [place] 38 as needed Medical for Branch Insomnia. zolpidem 10 2020-0 Yes 5mg Take 5 mg U nivers mg tablet 9-25 by mouth ity of 14:22: at bedtime [place] 38 as needed Medical for Branch Insomnia. zolpidem 10 2020-0 Yes 5mg Take 5 mg U nivers mg tablet 9-25 by mouth ity of 14:22: at bedtime [place] 38 as needed Medical for Branch Insomnia. zolpidem 10 2020-0 Yes 5mg Take 5 mg U nivers mg tablet 9-25 by mouth ity of 14:22: at bedtime [place] 38 as needed Medical for Branch Insomnia. phenazopyri 2020-0 Yes [id number] 200mg Take 2 [facility] dine 9-17 tablets by ity of (PYRIDIUM) 00:00: mouth 3 [place] 100 mg 00 (three) Medical tablet times Branch daily. phenazopyri 2020-0 Yes [id number] 200mg Take 2 Univers dine 9-17 tablets by ity of (PYRIDIUM) [place]: [place] (three) Medical tablet times Branch daily. phenazopyri 2020-0 Yes [id number] 200mg Take 2 [facility] dine 9-17 tablets by ity of (PYRIDIUM) 00:[place] 00 (three) Medical tablet times Branch daily. phenazopyri 2020-0 Yes [id number] 200mg Take 2 Univers dine 9-17 tablets [...] tablet times Branch daily. phenazopyri 2020-0 Yes [id number] 200mg Take 2 [facility] dine 9-17 tablets by ity of (PYRIDIUM) 00:[place]: [place] 00 (three) Medical tablet times Branch daily. phenazopyri 2020-0 Yes [id number] 200mg Take 2 [facility] dine 9-17 tablets by ity of (PYRIDIUM) 00:00: mouth [place] 00 (three) Medical tablet times Branch daily. phenazopyri 2020-0 Yes [id number] 200mg Take 2 [facility] dine 9-17 tablets by ity of (PYRIDIUM) 00:00: [place] 00 (three) Medical tablet times Branch daily. phenazopyri 2020-0 Yes [id number] 200mg Take 2 [facility] dine 9-17 tablets by ity of (PYRIDIUM) 00:00: mouth [place] mg 00 (three) Medical tablet times Branch daily. phenazopyri 2020-0 Yes [id number] 200mg Take 2 [facility] dine 9-17 tablets by ity of (PYRIDIUM) 00:00: mouth [place] mg 00 (three) Medical tablet times Branch daily. phenazopyri 2020-0 Yes [id number] 200mg Take 2 [facility] dine 9-17 tablets by ity of (PYRIDIUM) 00:00: mouth [place] 100 mg 00 (three) Medical tablet times Branch daily. phenazopyri 2020-0 Yes [id number] 200mg Take 2 [facility] dine 9-17 tablets by ity of (PYRIDIUM) 00:00: mouth [place] 100 mg 00 (three) Medical tablet times Branch daily. phenazopyri 2020-0 Yes [id number] 200mg Take 2 [facility] dine 9-17 tablets by ity of (PYRIDIUM) 00:00: mouth [place] 100 mg 00 (three) Medical tablet times Branch daily. phenazopyri 2020-0 Yes [id number] 200mg Take 2 [facility] dine 9-17 tablets by ity of (PYRIDIUM) 00:00: mouth [place] 100 mg 00 (three) Medical tablet times Branch daily. phenazopyri 2020-0 Yes [id number] 200mg Take 2 [facility] dine 9-17 tablets by ity of (PYRIDIUM) 00:00: mouth [place] 100 mg 00 (three) Medical tablet times Branch daily. phenazopyri 2020-0 Yes [id number] 200mg Take 2 [facility] dine 9-17 tablets by ity of (PYRIDIUM) 00:00: mouth [place] 100 mg 00 (three) Medical tablet times Branch daily. phenazopyri 2020-0 Yes [id number] 200mg Take 2 [facility] dine 9-17 tablets by ity of (PYRIDIUM) 00:00: mouth [place] 00 (three) Medical tablet times Branch daily. phenazopyri 2020-0 Yes [id number] 200mg Take 2 [facility] dine 9-17 tablets by ity of (PYRIDIUM) 00:00: mouth [place] 00 (three) Medical tablet times Branch daily. phenazopyri 2020-0 Yes [id number] 200mg Take 2 [facility] dine 9-17 tablets by ity of (PYRIDIUM) 00:00: mouth [place] mg 00 (three) Medical tablet times Branch daily. phenazopyri 2020-0 Yes [id number] 200mg Take 2 [facility] dine 9-17 tablets [...] Medical tablet times Branch daily. phenazopyri 2020-0 2022- No [id number] 200mg Take 2 [facility] dine 9-17 05-02 tablets by ity of (PYRIDIUM) 00:00: 00:00 mouth 3 [place] 100 mg 00 :00 (three) Medical tablet times Branch daily. phenazopyri 2020-0 2022- No [id number] 200mg Take 2 [facility] dine 9-17 05-02 tablets by ity of (PYRIDIUM) 00:00: 00:00 mouth 3 [place] 100 mg 00 :00 (three) Medical tablet times Branch daily. conjugated 2020-0 Yes [id number] 1g Insert 1 g Univers estrogens 9-14 into ity of 0.625 00:00: vagina [place] mg/gram 00 SEE-INSTRU Medica l vaginal CTIONS. Branch cream Apply small amount to vaginal opening and labia twice weekly conjugated 2020-0 Yes [id number] 1g Insert 1 g Univers estrogens 9-14 into ity of 0.625 00:00: vagina [place] mg/gram 00 SEE-INSTRU Medica l vaginal CTIONS. Branch cream Apply small amount to vaginal opening and labia twice weekly conjugated 2020-0 Yes [id number] 1g Insert 1 g Univers estrogens 9-14 into ity of 0.625 00:00: vagina [place] mg/gram 00 SEE-INSTRU Medica l vaginal CTIONS. Branch cream Apply small amount to vaginal opening and labia twice weekly conjugated 2020-0 Yes [id number] 1g Insert 1 g Univers estrogens 9-14 into ity of 0.625 00:00: vagina [place] mg/gram 00 SEE-INSTRU Medica l vaginal CTIONS. Branch cream Apply small amount to vaginal opening and labia twice weekly conjugated 2020-0 Yes [id number] 1g Insert 1 g Univers estrogens 9-14 into ity of 0.625 00:00: vagina [place] mg/gram 00 SEE-INSTRU Medica l vaginal CTIONS. Branch cream Apply small amount to vaginal opening and labia twice weekly conjugated 2020-0 Yes [id number] 1g Insert 1 g Univers estrogens 9-14 into ity of 0.625 00:00: vagina [place] mg/gram 00 SEE-INSTRU Medica l vaginal CTIONS. Branch cream Apply small amount to vaginal opening and labia twice weekly conjugated 2020-0 Yes [id number] 1g Insert 1 g Univers estrogens 9-14 into ity of 0.625 00:00: vagina [place] mg/gram 00 SEE-INSTRU Medica l vaginal CTIONS. Branch cream Apply small amount to vaginal opening and labia twice weekly conjugated 2020-0 Yes [id number] 1g Insert 1 g Univers estrogens 9-14 into ity of 0.625 00:00: vagina [place] mg/gram 00 SEE-INSTRU Medica l vaginal CTIONS. Branch cream Apply small amount to vaginal opening and labia twice weekly conjugated 2020-0 Yes [id number] 1g Insert 1 g Univers estrogens 9-14 into ity of 0.625 00:00: vagina [place] mg/gram 00 SEE-INSTRU Medica l vaginal CTIONS. Branch cream Apply small amount to vaginal opening and labia twice weekly conjugated 2020-0 Yes [id number] 1g Insert 1 g Univers estrogens 9-14 into ity of 0.625 00:00: vagina [place] mg/gram 00 SEE-INSTRU Medica l vaginal CTIONS. Branch cream Apply small amount to vaginal opening and labia twice weekly conjugated 2020-0 Yes [id number] 1g Insert 1 g Univers estrogens 9-14 into ity of 0.625 00:00: vagina [place] mg/gram 00 SEE-INSTRU Medica l vaginal CTIONS. Branch cream Apply small amount to vaginal opening and labia twice weekly conjugated 2020-0 Yes [id number] 1g Insert 1 g Univers estrogens 9-14 into ity of 0.625 00:00: vagina [place] mg/gram 00 SEE-INSTRU Medica l vaginal CTIONS. Branch cream Apply small amount to vaginal opening and labia twice weekly conjugated 2020-0 Yes [id number] 1g Insert 1 g Univers estrogens 9-14 into ity of 0.625 00:00: vagina [place] mg/gram 00 SEE-INSTRU Medica l vaginal CTIONS. Branch cream Apply small amount to vaginal opening and labia twice weekly conjugated 2020-0 Yes [id number] 1g Insert 1 g Univers estrogens 9-14 into ity of 0.625 00:00: vagina [place] mg/gram 00 SEE-INSTRU Medica l vaginal CTIONS. Branch cream Apply small amount to vaginal opening and labia twice weekly conjugated 2020-0 Yes [id number] 1g Insert 1 g Univers estrogens 9-14 into ity of 0.625 00:00: vagina [place] mg/gram 00 SEE-INSTRU Medica l vaginal CTIONS. Branch cream Apply small amount to vaginal opening and labia twice weekly conjugated 2020-0 Yes [id number] 1g Insert 1 g Univers estrogens 9-14 into ity of 0.625 00:00: vagina [place] mg/gram 00 SEE-INSTRU Medica l vaginal CTIONS. Branch cream Apply small amount to vaginal opening and labia twice weekly conjugated 2020-0 Yes [id number] 1g Insert 1 g [facility] estrogens 9-14 into ity of 0.625 00:00: vagina [place] mg/gram 00 SEE-INSTRU Medica l vaginal CTIONS. Branch cream Apply small amount to vaginal opening and labia twice weekly conjugated 2020-0 Yes [id number] 1g Insert 1 g Univers estrogens 9-14 into ity of 0.625 00:00: vagina [place] mg/gram 00 SEE-INSTRU Medica l vaginal CTIONS. Branch cream Apply small amount to vaginal opening and labia twice weekly conjugated 2020-0 Yes [id number] 1g Insert 1 g Univers estrogens 9-14 into ity of 0.625 00:00: vagina [place] mg/gram 00 SEE-INSTRU Medica l vaginal CTIONS. Branch cream Apply small amount to vaginal opening and labia twice weekly conjugated 2020-0 Yes [id number] 1g Insert 1 g Univers estrogens 9-14 into ity of 0.625 00:00: vagina [place] mg/gram 00 SEE-INSTRU Medica l vaginal CTIONS. Branch cream Apply small amount to vaginal opening and labia twice weekly conjugated 2020-0 Yes [id number] 1g Insert 1 g Univers estrogens 9-14 into ity of 0.625 00:00: vagina [place] mg/gram 00 SEE-INSTRU Medica l vaginal CTIONS. Branch cream Apply small amount to vaginal opening and labia twice weekly conjugated 2020-0 Yes [id number] 1g Insert 1 g Univers estrogens 9-14 into ity of 0.625 00:00: vagina [place] mg/gram 00 SEE-INSTRU Medica l vaginal CTIONS. Branch cream Apply small amount to vaginal opening and labia twice weekly conjugated 2020-0 Yes [id number] 1g Insert 1 g Univers estrogens 9-14 into ity of 0.625 00:00: vagina [place] mg/gram 00 SEE-INSTRU Medica l vaginal CTIONS. Branch cream Apply small amount to vaginal opening and labia twice weekly conjugated 2020-0 Yes [id number] 1g Insert 1 g Univers estrogens 9-14 into ity of 0.625 00:00: vagina [place] mg/gram 00 SEE-INSTRU Medica l vaginal CTIONS. Branch cream Apply small amount to vaginal opening and labia twice weekly conjugated 2020-0 Yes [id number] 1g Insert 1 g Univers estrogens 9-14 into ity of 0.625 00:00: vagina [place] mg/gram 00 SEE-INSTRU Medica l vaginal CTIONS. Branch cream Apply small amount to vaginal opening and labia twice weekly conjugated 2020-0 Yes [id number] 1g Insert 1 g Univers estrogens 9-14 into ity of 0.625 00:00: vagina [place] mg/gram 00 SEE-INSTRU Medica l vaginal CTIONS. Branch cream Apply small amount to vaginal opening and labia twice weekly conjugated Yes [id number] 1g Insert 1 g Univers estrogens 9-14 into ity of 0.625 00:00: vagina [place] mg/gram 00 SEE-INSTRU Medica l vaginal CTIONS. Branch cream Apply small amount to vaginal opening and labia twice weekly conjugated Yes [id number] 1g Insert 1 g Univers estrogens 9-14 into ity of 0.625 00:00: vagina [place] mg/gram 00 SEE-INSTRU Medica l vaginal CTIONS. Branch cream Apply small amount to vaginal opening and labia twice weekly conjugated Yes [id number] 1g Insert 1 g Univers estrogens 9-14 into ity of 0.625 00:00: vagina [place] mg/gram 00 SEE-INSTRU Medica l vaginal CTIONS. Branch cream Apply small amount to vaginal opening and labia twice weekly conjugated 2022- No [id number] 1g Insert 1 g Univers estrogens 9-14 05-02 into ity of 0.625 00:00: 00:00 vagina [place] mg/gram 00 :00 SEE-INSTRU Medica l vaginal CTIONS. Branch cream Apply small amount to vaginal opening and labia twice weekly conjugated 2022- No [id number] 1g Insert 1 g Univers estrogens 9-14 05-02 into ity of 0.625 00:00: 00:00 vagina [place] mg/gram 00 :00 SEE-INSTRU Medica l vaginal CTIONS. Branch cream Apply small amount to vaginal opening and labia twice weekly levothyroxi Yes 112ug QD Take 112 M ethodi ne 6-[address] (SYNTHROID, 13:41: mouth Hospi ta LEVOXYL) 57 every l 112 mcg morning. tablet pramipexole Yes 1mg QD Take 1 mg M ethodi (MIRAPEX) 1 6-[address] MG tablet 13:41: nightly. Hosp tracee 57 l zolpidem 0 Yes 5mg QD Take 5 mg Meth shea (AMBIEN) 5 6-[address] MG tablet 13:41: nightly as [facility] spita 57 needed for l sleep. docusate Yes 1{tbl} Q.5D Take 1 Metho di [...] (two) l ORAL) times a day. Lactobacill 2017-0 Yes 1{packe Q.5D Take 1 M ethodi [...] spita 57 needed for l sleep. docusate Yes 1{tbl} Q.5D Take 1 Metho di sodium 6-[address] (STOOL 13:41: mouth 2 Hospita SOFTENER 57 (two) l ORAL) times a day. Lactobacill Yes 1{packe Q.5D Take 1 M ethodi [...] Immunizations Ordered Filled Immunization Date Status Comments [facility] e Immunization Name Name [facility] 2022-02-28 Completed University of 00:00:00 [facility] 2022-02-28 Completed University of 00:00:00 [facility] 2022-02-28 Completed University of 00:00:00 [facility] 2022-02-28 Completed University of 00:00:00 [facility] 2022-02-28 Completed University of 00:00:00 [facility] 2022-02-28 Completed University of 00:00:00 [facility] 2022-02-28 Completed University of 00:00:00 [facility] 2022-02-28 Completed University of 00:00:00 [facility] 2022-02-28 Completed University of 00:00:00 [facility] 2022-02-28 Completed University of 00:00:00 [facility] TDAP 2022-02-28 Completed University of 00:00:00 [facility] TDAP 2022-02-28 Completed University of 00:00:00 [facility] TDAP 2022-02-28 Completed University of 00:00:00 [facility] TDAP 2022-02-28 Completed University of 00:00:00 [facility] TDAP 2022-02-28 Completed University of 00:00:00 [facility] TDAP 2022-02-28 Completed University of 00:00:00 [facility] TDAP 2022-02-28 Completed University of 00:00:00 [facility] TDAP 2022-02-28 Completed University of 00:00:00 [facility] TDAP 2022-02-28 Completed University of 00:00:00 [facility] TDAP 2022-02-28 Completed University of 00:00:00 [facility] TDAP 2022-02-28 Completed University of 00:00:00 [facility] TDAP 2022-02-28 Completed University of 00:00:00 [facility] TDAP 2022-02-28 Completed University of 00:00:00 [facility] TDAP 2022-02-28 Completed University of 00:00:00 [facility] TDAP 2022-02-28 Completed University of 00:00:00 [facility] TDAP 2022-02-28 Completed University of 00:00:00 [facility] TDAP 2022-02-28 Completed University of 00:00:00 [facility] TDAP 2022-02-28 Completed University of 00:00:00 [facility] TDAP 2022-02-28 Completed University of 00:00:00 [facility] Vital Signs Vital Name Observation Time Observation Value Comments Source Systolic blood 2022-11-19 04:30:00 147 mm[Hg] Univer sity of pressure [facility] Diastolic blood 2022-11-19 04:30:00 77 mm[Hg] Unive rsity of pressure [facility] Heart rate 2022-11-19 04:30:00 63 /min [facility] Body temperature 2022-11-19 04:30:00 36.72 Suzi Univ ersity of [facility] Respiratory rate 2022-11-19 04:30:00 18 /min Univ ersity [facility] Oxygen saturation in 2022-11-19 04:30:00 96 /min University of Arterial blood by [facility] Pulse oximetry [place] Body height 2022-11-18 23:44:00 167.6 cm Universi ty of [facility] Body weight 2022-11-18 23:44:00 84.823 kg Universi ty of [facility] BMI 2022-11-18 23:44:00 30.18 kg/m2 Universi ty of [facility] Systolic blood 2022-10-28 18:36:00 152 mm[Hg] Univer sity of pressure [facility] Diastolic blood 2022-10-28 18:36:00 88 mm[Hg] Unive rsity of pressure [facility] Heart rate 2022-10-28 18:22:00 88 /min Universi ty of [facility] Body temperature 2022-10-28 18:22:00 36.78 Suzi Univ ersity of [facility] Respiratory rate 2022-10-28 18:22:00 18 /min Univ ersity of [facility] Body height 2022-10-28 18:22:00 152.4 cm Universi ty of [facility] Body weight 2022-10-28 18:22:00 83.915 kg Universi ty of [facility] BMI 2022-10-28 18:22:00 36.13 kg/m2 Universi ty of [facility] Systolic blood 2022-09-03 20:45:00 154 mm[Hg] Univer sity of pressure [facility] Diastolic blood 2022-09-03 20:45:00 89 mm[Hg] Unive rsity of pressure [facility] Heart rate 2022-09-03 20:36:00 92 /min Universi ty of [facility] Body temperature 2022-09-03 20:36:00 37.22 Suzi Univ ersity of [facility] Respiratory rate 2022-09-03 20:36:00 19 /min Univ ersity of [facility] Body height 2022-09-03 20:36:00 152.4 cm Universi ty of [facility] Body weight 2022-09-03 20:36:00 84.823 kg Universi ty of [facility] BMI 2022-09-03 20:36:00 36.52 kg/m2 Universi ty [facility] [place] [facility] Systolic blood 2022-08-14 19:31:00 153 mm[Hg] Univer sity of pressure [place] [facility] Diastolic blood 2022-08-14 19:31:00 84 mm[Hg] Unive rsity of pressure [place] [facility] Heart rate 2022-08-14 19:30:00 92 /min Universi ty of [place] [facility] Body temperature 2022-08-14 19:30:00 37 Suzi Univ ersity of [place] [facility] Respiratory rate 2022-08-14 19:30:00 18 /min Univ ersity of [place] [facility] Body height 2022-08-14 19:30:00 152.4 cm Universi ty of [place] [facility] Body weight 2022-08-14 19:30:00 85.73 kg Universi ty of [place] [facility] BMI 2022-08-14 19:30:00 36.91 kg/m2 Universi ty [facility] [place] [facility] Systolic blood 2022-07-31 17:18:00 168 mm[Hg] Univer sity of pressure [place] [facility] Diastolic blood 2022-07-31 17:18:00 96 mm[Hg] Unive rsity of pressure [place] [facility] Heart rate 2022-07-31 17:09:00 74 /min Universi ty [facility] [place] [facility] Body temperature 2022-07-31 17:09:00 36.83 Suzi Univ ersity of [place] [facility] Respiratory rate 2022-07-31 17:09:00 18 /min Univ ersity of [place] [facility] Body height 2022-07-31 17:09:00 152.4 cm Universi ty of [place] [facility] Body weight 2022-07-31 17:09:00 85.276 kg Universi ty of [place] [facility] BMI 2022-07-31 17:09:00 36.72 kg/m2 Universi ty [facility] [place] [facility] Systolic blood 2022-05-08 03:00:00 163 mm[Hg] Univer sity of pressure [place] [facility] Diastolic blood 2022-05-08 03:00:00 82 mm[Hg] Unive rsity of pressure [place] [facility] Heart rate 2022-05-08 03:00:00 75 /min Universi ty of [place] [facility] Respiratory rate 2022-05-08 03:00:00 23 /min Univ ersity of [place] [facility] Oxygen saturation in 2022-05-08 03:00:00 100 /min University of Arterial blood by [place] [facility] Pulse oximetry [facility] Body temperature 2022-05-08 00:38:00 36.28 Suzi Univ ersity of [place] [facility] Body height 2022-05-08 00:38:00 152.4 cm Universi ty of [place] [facility] Body weight 2022-05-08 00:38:00 82.555 kg Universi ty of [place] [facility] BMI 2022-05-08 00:38:00 35.54 kg/m2 Universi ty of [place] [facility] Systolic blood 2022-02-28 23:57:00 135 mm[Hg] Univer sity of pressure [place] [facility] Diastolic blood 2022-02-28 23:57:00 77 mm[Hg] Unive rsity of pressure [place] [facility] Heart rate 2022-02-28 23:57:00 101 /min Universi ty of [place] [facility] Body temperature 2022-02-28 23:57:00 37 Suzi Univ ersity of [place] [facility] Respiratory rate 2022-02-28 23:57:00 18 /min Univ ersity of [place] [facility] Body height 2022-02-28 23:57:00 152.4 cm Universi ty of [place] [facility] Body weight 2022-02-28 23:57:00 84.705 kg Universi ty of [place] [facility] BMI 2022-02-28 23:57:00 36.47 kg/m2 Universi ty of [place] [facility] Oxygen saturation in 2022-02-28 23:57:00 97 /min University of Arterial blood by [facility] kory Pulse oximetry Branch Systolic blood 2021-10-24 18:34:00 147 mm[Hg] Univer sity of pressure [place] [facility] Diastolic blood 2021-10-24 18:34:00 96 mm[Hg] Unive rsity of pressure [place] [facility] Heart rate 2021-10-24 18:34:00 73 /min Universi ty of [place] [facility] Respiratory rate 2021-10-24 18:34:00 18 /min Univ ersity of [place] [facility] Oxygen saturation in 2021-10-24 18:34:00 98 /min University of Arterial blood by [place] [employer] kory Pulse oximetry Branch Body temperature 2021-10-24 16:09:00 36.83 Suzi Univ ersity of [place] [facility] Body height 2021-10-24 16:09:00 152.4 cm Universi ty of [place] [facility] Body weight 2021-10-24 16:09:00 79.833 kg Universi ty of [place] [facility] BMI 2021-10-24 16:09:00 34.37 kg/m2 Universi ty of [place] [facility] Systolic blood 2021-10-18 14:00:00 169 mm[Hg] Univer sity of pressure [place] [facility] Diastolic blood 2021-10-18 14:00:00 79 mm[Hg] Unive rsity of pressure [place] [facility] Heart rate 2021-10-18 14:00:00 72 /min Universi ty of [place] [facility] Respiratory rate 2021-10-18 14:00:00 12 /min Univ ersity of [place] [facility] Oxygen saturation in 2021-10-18 14:00:00 96 /min University of Arterial blood by [employer] Pulse oximetry Branch Body temperature 2021-10-18 12:43:00 35.83 Suzi Univ ersity of [place] [facility] Body height 2021-10-18 12:43:00 152.4 cm Universi ty of [place] [facility] Body weight 2021-10-18 12:43:00 79.833 kg Universi ty of [place] [facility] BMI 2021-10-18 12:43:00 34.37 kg/m2 Universi ty of [place] [facility] Systolic blood 2021-05-10 17:34:00 172 mm[Hg] Univer sity of pressure [place] [facility] Diastolic blood 2021-05-10 17:34:00 91 mm[Hg] Unive rsity of pressure [facility] Heart rate 2021-05-10 17:34:00 74 /min Universi ty of [place] [facility] Body temperature 2021-05-10 17:33:00 36.67 Suzi Univ ersity of [place] [facility] Respiratory rate 2021-05-10 17:33:00 16 /min Univ ersity of [place] [facility] Body weight 2021-05-10 17:33:00 81.738 kg Universi ty of [place] [facility] BMI 2021-05-10 17:33:00 35.19 kg/m2 Universi ty of [place] [facility] Oxygen saturation in 2021-05-10 17:33:00 99 /min University of Arterial blood by [facility] Pulse oximetry Branch Procedures Procedure Date / Time Performing Clinician Source Performed CT ABDOMEN PELVIS W 2022-11-19 02:48:38 Ese Teran [facility] CONTRAST Medical Branch LIPASE 2022-11-19 01:54:00 Ese Teran [facility] Medical Branch MAGNESIUM 2022-11-19 01:54:00 Ese Teran [facility] TROPONIN I 2022-11-19 01:54:00 Ese Teran [facility] COMP. METABOLIC PANEL 2022-11-19 01:54:00 Ese Teran [facility] ([id number]) Medical [place] CBC WITH DIFF 2022-11-19 01:54:00 Ese Teran [facility] URINALYSIS 2022-11-19 01:54:00 Ese Teran [facility] ASSIGNMENT OF BENEFITS 2022-11-19 00:13:05 Doctor Unassigned, No [facility] NOTICE OF PRIVACY 2022-11-18 23:18:45 Doctor Unassigned, No [facility] PRACTICES [facility] CONSENT/REFUSAL FOR 2022-11-18 23:17:37 Doctor Unassigned, No [facility] DIAGNOSIS AND TREATMENT [facility] PATIENT FINANCIAL 2022-09-03 20:34:39 Doctor Unassigned, No [facility] POLICY [facility] POCT URINALYSIS W/O 2022-08-14 19:37:00 Mirza Duong [facility] SPECIFIC GRAVITY [facility] Branch US PELVIS COMPLETE WITH 2022-08-06 19:48:00 Mirza Duong [facility] TRANSVAGINAL [facility] ASSIGNMENT OF BENEFITS 2022-07-31 17:04:42 Doctor Unassigned, No [facility] CT ABDOMEN PELVIS W 2022-05-08 02:00:11 Najma Powell [facility] Medical Branch LIPASE 2022-05-08 01:00:00 Najma Powell [facility] COMP. METABOLIC PANEL 2022-05-08 01:00:00 Najma Powell [facility] ([id number]) [facility] Branch CBC WITH DIFF 2022-05-08 01:00:00 Najma Powell [facility] CONSENT/REFUSAL FOR 2022-05-08 00:21:53 Doctor Unassigned, No [facility]REAT[facility] Name [facility] TDAP VACCINE, >11 YRS, 2022-03-01 00:02:47 Abby Rivera [facility] URINALYSIS 2021-10-24 16:21:00 Singer [facility] o f [facility] Branch LIPASE 2021-10-18 13:06:00 Donna [facility] COMP. METABOLIC PANEL 2021-10-18 13:06:00 Donna [facility] ([id number]) [facility] CBC WITH DIFF 2021-10-18 13:06:00 Donna [facility] URINALYSIS 2021-10-18 13:06:00 Donna [facility] NOTICE OF PRIVACY 2021-10-18 12:41:39 Doctor Unassigned, No [facility] PRACTICES Name [facility] CONSENT/REFUSAL FOR 2021-10-18 12:34:32 [facility] Name [facility] Plan of Care Planned Activity Planned Date Details Comments Source Future Scheduled 2022-10-01 COVID-19 VACCINE (#1) [facility] Test 03:49:09 [code = COVID-19 VACCINE (#1)] Future Scheduled 2022-10-01 BREAST CANCER [facility] Test 03:49:09 SCREENING [code = BREAST CANCER SCREENING] Future Scheduled 2022-10-01 COLONOSCOPY SCREENING [facility] Test 03:49:09 [code = COLONOSCOPY SCREENING] Future Scheduled 2022-10-01 SHINGLES VACCINES (1 [facility] Test 03:49:09 of 2) [code = SHINGLES VACCINES (1 of 2)] Future Scheduled 2022-10-01 65+ [facility]OCCAL [facility] Test 03:49:09 VACCINE (1 - PCV) [code = 65+ PNEUMOCOCCAL VACCINE (1 - PCV)] Future Scheduled 2022-10-01 INFLUENZA [facility]ACCINE [facility] Test 03:49:09 [code = INFLUENZA VACCINE] Future Scheduled 2022-02-26 HEPATITIS B VACCINES [facility] Test 03:19:32 (1 of 3 - 3-dose series) [code = HEPATITIS B VACCINES (1 of 3 - 3-dose series)] Future Scheduled 2022-02-26 COVID-19 VACCINE (#1) [facility] Test 03:19:32 [code = COVID-19 VACCINE (#1)] Future Scheduled 2022-02-26 BREAST CANCER [facility] Test 03:19:32 SCREENING [code = BREAST CANCER SCREENING] Future Scheduled 2022-02-26 COLONOSCOPY SCREENING [facility] Test 03:19:32 [code = COLONOSCOPY SCREENING] Future Scheduled 2022-02-26 SHINGLES VACCINES (1 [facility] Test 03:19:32 of 2) [code = SHINGLES VACCINES (1 of 2)] Future Scheduled 2022-02-26 65+ [facility] 03:[facility]:32 VACCINE (1 - PCV) [code = 65+ PNEUMOCOCCAL VACCINE (1 - PCV)] Future Scheduled 2022-02-26 INFLUENZA VACCINE [facility] Test 03:19:32 [code = INFLUENZA VACCINE] Future Scheduled 2021-06-19 COVID-19 VACCINE (1) [facility] Test 02:39:11 [code = COVID-19 VACCINE (1)] Future Scheduled 2021-06-19 BREAST CANCER [facility] Test 02:39:11 SCREENING [code = BREAST CANCER SCREENING] Future Scheduled 2021-06-19 COLONOSCOPY SCREENING [facility] Test 02:39:11 [code = COLONOSCOPY SCREENING] Future Scheduled 2021-06-19 SHINGLES VACCINES (#1) [facility] Test 02:39:11 [code = SHINGLES VACCINES (#1)] Future Scheduled 2021-06-19 65+ [facility] 02:39:11 VACCINE (1 of 1 - PPSV23) [code = 65+ PNEUMOCOCCAL VACCINE (1 of 1 - PPSV23)] Future Scheduled 2021-06-19 INFLUENZA VACCINE [facility] Test 02:39:11 [code = INFLUENZA VACCINE] Encounters Start End Encounter Admission Attending Care Care Encounter Source Date/Time Date/Time Type Type Clinicians Facility Department ID 2021-04-30 Emergency [facility] [id number] Univers 04:55:58 ity of [facility] 2021-04-27 Emergency [facility] [id number] Univers 21:42:20 ity of [facility] 2021-04-26 Emergency [facility] [id number] Univers 20:08:13 ity of [facility] 2021-04-26 Emergency [facility] [id number] Univers 13:43:55 ity of [facility] 2022-11-18 2022-11-18 Emergency [facility] ERT [id number] Univers 18:45:00 23:55:00 ESE ity of [facility] 2022-11-18 2022-11-18 Emergency [facility] 1.2.840.114 [id number] Univers 18:45:00 23:55:00 Ese BILLY 350.1.13.10 [place] [phone] [facility] [address] [place] 2022-11-18 2022-11-18 Orders Doctor RADHA 1.2.840.114 [id number] Univers 00:00:00 00:00:00 Only Unassigned, BELEN 350.1.13.10 ity of [place] [facility] 4.2.7.2.686 Deep as [phone] [facility] [address] [place] 2022-11-04 2022-11-04 Telephone [facility] [id number] Univers 00:00:00 00:00:00 Marcela BILLY 350.1.13.10 [place] [phone] Ia dical NAL 134 [facility] 2022-10-28 2022-10-28 [employer] 2, Adc Lab [facility] 1.2.840.114 [id number] Univers 15:30:00 15:45:00 Visit Adum, Marcela BILLY 350.1.13.10 [place] [phone] Ia dical NAL 353 [facility] 2022-10-28 2022-10-28 Outpatient R ADWILDA, [facility] [id number] Univers 13:30:00 14:54:07 MARCELA ity of [facility] 2022-10-282022-10-28 Office [facility] 1.2.840.114 [id number] Univers 13:30:00 14:54:07 Visit Marcela BILLY 350.1.13.10 ity [facility] [place] [id number] Ia dical NAL 134 [facility] 2022-09-18 2022-09-18 Telephone [facility] 1.2.840.114 [id number] Univers 00:00:00 00:00:00 Mirza BILLY 350.1.13.10 i ty of [facility] [place] [id number] Ia dical NAL 134 [facility] 2022-09-17 2022-09-17 [facility] [id number] Univers 15:00:00 15:23:24 [facility] 2022-09-17 2022-09-17 [employer] 2, Adc Lab [facility] 1.2.840.114 [id number] Univers 15:00:00 15:23:24 Visit Mirza Duong 350.1.13.10 [place] [id number] Ia dical NAL 353 [facility] 2022-09-11 2022-09-11 Outpatient R [facility] [id number] Univers 13:00:00 13:00:00 ity [facility] 2022-09-03 2022-09-03 Out[facility] [id number] Univers 15:00:00 15:13:23 [facility] 2022-09-03 2022-09-03 Office Saleemva [facility] 1.2.586.565 [id number] Univers 15:00:00 15:13:23 Visit Mirza BILLY 350.1.13.10 i ty [facility] 4[place] [phone] Ia dical NAL 134 [facility] 2022-09-03 2022-09-03 Orders Doctor GARCIA 1.2.840.114 [id number] Univers 00:00:00 00:00:00 Only Unassigned, BELEN 350.1.13.10 [facility] 4.2.7.2.686 Deep as [phone] [address] 2022-08-27 2022-08-27 Telephone [facility] 1.2.840.114 [id number] Univers 00:00:00 00:00:00 Mirza BILLY 350.1.13.10 [place] [phone] Ia dical [address] 2022-08-22 2022-08-22 Refill [facility] 1.2.966.683 [id number] Univers 00:00:00 00:00:00 Mirza BILLY 350.1.13.10 [place] [phone] Ia dic[address] 2022-08-19 2022-08-19 Outpatient [facility] [id number] Univers 00:00:00 00:00:00 MIRZA abdifatah [facility] 2022-08-15 2022-08-15 Telephone [facility] 1.2.840.114 [id number] [facility] 00:00:00 00:00:00 Mirza BILLY 350.1.13.10 [place] [phone] Ia dical [address] 2022-08-14 2022-08-14 Outpatient R [facility] [id number] Univers 13:00:00 13:47:24 MIRZA abdifatah [facility] 2022-08-14 2022-08-14 Office [facility] 1.2.200.230 [id number] Univers 13:00:00 13:47:24 Visit Mirza BILLY 350.1.13.10 [place] [id number] Ia dical NAL [address] [place] [address] 2022-08-13 2022-08-13 Outpatient R AD [facility] [id number] Univers 14:00:00 15:51:58 MIRZA abdifatah [facility] 2022-08-13 2022-08-13 [employer] 2, Adc Lab [facility] 1.2.840.114 [id number] Univers 14:00:00 14:15:00 Visit Mirza Duong 350.1.13.10 [place] [phone] [facility] 353 [facility] 2022-08-07 2022-08-07 Case [facility] 1.2.612.482 [id number] Univers 00:00:00 00:00:00 Management Mirza BILLY 350.1.13.10 [place] [id number] Ia dical [facility] 134 [facility] 2022-08-06 2022-08-06 Outpatient [facility] [id number] Univers 12:13:34 23:59:00 MIRZA abdifatah [facility] 2022-08-06 2022-08-06 [facility] 1.2.840.114 [id number] Univers 12:13:34 23:59:00 Encounter Mirza BILLY 350.1.13.10 [place] [id number] [facility] [address] [place] 2022-08-04 2022-08-04 Telephone [facility] 1.2.840.114 [id number] Univers 00:00:00 00:00:00 Mirza BILLY 350.1.13.10 [place] [id number] [facility] 134 [facility] 2022-07-31 2022-07-31 Outpatient [facility] [id number] Univers 11:30:00 11:50:44 MIRZA gardiner [facility] 2022-07-31 2022-07-31 Office [facility] 1.2.377.490 [id number] Univers 11:30:00 11:50:44 Visit Mirza BILLY 350.1.13.10 [place] [id number] [address] 2022-07-31 2022-07-31 Orders Doctor RADHA 1.2.840.114 [id number] Univers 00:00:00 00:00:00 Only Unassigned, BELEN 350.1.13.10 [facility] 4.2.7.2.686 Deep as [phone] [facility] [address] [place] 2022-07-31 2022-07-31 Telephone [facility] 1.2.840.114 [id number] Univers 00:00:00 00:00:00 Mirza BILLY 350.1.13.10 [place] [id number] [address] 2022-07-31 2022-07-31 Telephone [facility] 1.2.840.114 [id number] Univers 00:00:00 00:00:00 Mirza BILLY 350.1.13.10 [place] [id number] [address] 2022-07-15 2022-07-15 Outpatient [facility] [id number] Univers 11:15:00 11:15:00 MIRZA gardiner of [facility] 2022-05-07 2022-05-07 [facility] [id number] Univers 18:31:00 21:18:00 NAJMA roach y of [facility] 2022-05-07 2022-05-07 Emergency [facility] 1.2.865.367 [id number] Univers 18:31:00 21:18:00 Najma BILLY 350.1.13.10 [place] [id number] [facility] [address] [place] 2022-02-28 2022-02-28 Urgent [facility] 1.2.840.114 [id number] Univers 19:00:00 19:20:00 Care [facility] 350.1.13.10 it y of [place] 4.2.7.2.686 Deep as MENDOZA?BLEA [phone] Ia wiliam [address] MEDICAL OFFICE BUILDING 2022-02-28 2022-02-28 Outpatient [facility] [id number] Univers 19:00:00 19:00:00 ABBY [facility] 2021-10-24 2021-10-24 Emergency X [facility] ERT [id number] Univers 11:19:00 13:38:00 ROSLYN [facility] 2021-10-24 2021-10-24 Emergency [facility] 1.2.109.168 [id number] Univers 11:19:00 13:38:00 Roslyn G MARIAJOSE 350.1.13.10 ity of [place] 4.2.7.2.686 [facility] [id number] [address] 2021-10-18 2021-10-18 Emergency X [facility] ERT [id number] Univers 07:39:00 10:02:00 GAY brea [facility] 2021-10-18 2021-10-18 [facility] 1.2.680.027 [id number] Univers 07:39:00 10:02:00 Gay BILLY 350.1.13.10 ity [facility] 4.2.7.2.686 [facility] [id number] [address] 2021-10-18 2021-10-18 Orders Doctor GARCIA 1.2.840.114 [id number] Univers 00:00:00 00:00:00 Only Unassigned, BELEN 350.1.13.10 ity of [place] [facility] 4.2.7.2.686 Deep as [id number] [address] 2021-10-15 2021-10-15 Outpatient R ELIECER [facility] [id number] Univers 00:00:00 00:00:00 ISMAEL gardiner [facility] 2021-10-102021-10-10 Outpatient R ELIECER [facility] [id number] Univers 17:34:44 23:59:00 ISMAEL gardiner [facility] 2021-10-10 2021-10-10 [facility] Eliecer, [facility] 1.2.840.114 [id number] Univers 17:34:44 23:59:00 Encounter Ismael S SPECIALTY 350.1.13.10 [place] [phone] Ia dical [facility] 804 [facility] 2021-05-10 2021-05-10 Office [facility] 1.2.840.114 [id number] Univers 11:17:34 12:07:47 Visit Radha BILLY 350.1.13.10 i ty of [place] [phone] Ia dical NAL 188 [facility] 2021-05-10 2021-05-10 Outpatient [facility] [id number] Univers 11:15:00 12:07:47 RADHA abdifatah [facility] 2021-05-10 2021-05-10 Orders Doctor RADHA 1.2.840.114 [id number] Univers 00:00:00 00:00:00 Only Unassigned, BELEN 350.1.13.10 ity of [place] [facility] 4.2.7.2.686 Deep as [phone] [facility] [address] [place] 2021-04-04 2021-04-04 Emergency [facility] 1.2.840.114 [id number] Univers 13:03:00 14:49:00 Jeff Billy 350.1.13.10 i ty of [place] [phone] [facility] [address] [place] 2021-03-30 2021-03-30 Letter [facility] 1.2.840.114 [id number] Univers 00:00:00 00:00:00 (Out) Radha Billy 350.1.13.10 i ty of [place] [id number] Ia dical nal 188 [facility] 2021-03-29 2021-03-29 Outpatient R ALBINA [facility] [id number] Univers 10:30:00 10:30:00 RADHA gardiner [facility] 2021-03-28 2021-03-28 Orders Doctor GARCIA 1.2.840.114 [id number] Univers 00:00:00 00:00:00 Only Unassigned, BELEN 350.1.13.10 [place] of [place] [facility] 4.2.7.2.686 Deep as [id number] [facility] [address] [place] 2021-03-27 2021-03-27 Outpatient R ROSIE [facility] [id number] Univers 15:30:00 15:30:00 MARCELA brea [facility] 2021-02-21 2021-02-21 Letter RADHA Nagel 1.2.840.114 [id number] Univers 00:00:00 00:00:00 (Out) Ashleigh GLOVER 350.1.13.10 it y of HOSPITAL 4.2.7.2.686 Deep as [id number] [address] 2021-02-21 2021-02-21 Telephone Provider, [facility] 1.2.840.114 [id number] Univers 00:00:00 00:00:00 Ang [facility] 350.1.13.10 ity of Care [place] 4.2.7.2.686 Deep as Mendoza?Blea [phone] [facility] Office [facility] 2021-02-19 2021-02-19 Laboratory Only, Ang Db Test [facility] 1.2.8 40.114 [id number] Univers 15:54:13 16:04:13 Only Sue [facility] 350.1.13.10 ity of [place] 4.2.7.2.686 Deep as Mendoza?Blea [id number] [address] 2021-02-19 2021-02-19 Outpatient R MARVIN [facility] [id number] Univers 15:50:00 15:50:00 ABBY gardiner [facility] 2021-02-19 2021-02-19 Letter Doctor GARCIA 1.2.840.114 [id number] Univers 00:00:00 00:00:00 (Out) Unassigned, BELEN 350.1.13.10 ity of [facility] 4.2.7.2.686 [facility] as [id number] [address] 2020-11-05 2020-11-05 Outpatient [facility] [id number] Univers 11:15:00 11:15:00 TASH gardiner [facility] 2020-07-24 2020-07-17 Inpatient TSACY Colmenares MDAY [id number] [facility] 11:30:00 12:15:00 Carlos [facility] 2020-06-26 2020-07-12 Inpatient STACY Colmenares [id number] [facility] 06:44:00 20:09:21 Carlos [facility] 2020-07-10 2020-07-10 Laboratory Lab, [facility] 1.2.840.114 [id number] 16:18:49 16:38:49 Only Fam Pob [facility] Health 350.1.13.10 [place] 4.2.7.2.686 Professio [id number] nal [address] 2020-07-10 2020-07-10 Outpatient R JORDAN [facility] [id number] Univers 16:15:00 16:15:00 GEETA [facility] 2020-05-16 2020-05-16 [facility] 1.2.840.114 [id number] 15:59:17 23:59:00 Encounter Tami Billy 350.1.13.10 [place] 4.2.7.2.686 [place] [id number] 2020-05-16 2020-05-16 Outpatient R [facility] [id number] Univers 00:00:00 00:00:00 [facility] 2020-05-14 2020-05-14 Office Brandi Lg [facility] 1.2.840.114 [id number] 14:07:10 16:11:34 Visit Rm, Adc Surg Spec Procedure Mariajose 3 50.1.13.10 [place] 4.2.7.2.686 Professio [id number] nal 204 [facility] 2020-05-14 2020-05-14 Outpatient R BRANDI [facility] [id number] Univers 14:30:00 14:30:00 [facility] 2020-05-14 2020-05-14 Telephone [facility] 1.2.840.114 [id number] 00:00:00 00:00:00 [facility] [place] 350.1.13.10 [place] 4.2.7.2.686 Profsameeraio [phone] nal 188 [facility] 2020-05-14 2020-05-14 Orders Doctor RADHA 1.2.840.114 [id number] 00:00:00 00:00:00 Only Unassigned, BELEN 350.1.13.10 [place] [facility] 4.2.7.2.686 [id number] 009 2020-05-07 2020-05-07 Outpatient [facility] [id number] Univers 13:00:00 13:00:00 [facility] 2020-04-12 2020-04-12 Outpatient R [facility] [id number] Univers 13:30:00 13:30:00 [facility] 2020-04-06 2020-04-06 Outpatient Daquan [facility] [id number] Univers 11:00:00 11:00:00 RADHA [facility] 2020-03-26 2020-03-26 Outpatient Daquan [facility] [id number] Univers 00:00:00 00:00:00 TASH [facility] 2020-03-23 2020-03-23 Outpatient R ROSIE [facility] [id number] Univers 14:00:00 14:00:00 MARCELA [facility] 2020-03-12 2020-03-12 Outpatient R [facility] [id number] Univers 16:00:00 16:00:00 [facility] 2020-03-09 2020-03-09 Outpatient Daquan [facility] [id number] Univers 11:00:00 11:00:00 RADHA [facility] 2020-03-02 2020-03-02 Outpatient R WALKER, [facility] [id number] Univers 10:30:00 10:30:00 RADHA [facility] 2019-11-30 2019-11-30 Outpatient R [facility] [id number] Univers 10:00:00 10:00:00 [facility] Results Test Description Test Time Test Comments Results Result Comments Source TROPONIN I 2022-11-19 02:44:47 Test Item Value Reference Range Interpretation Comme nts TROPONIN I (test code = 2607197752) <=0.034 TICO (test code = TICO) Reference (Normal) Range (defined by the 99th percentile reference limit): <= 0.034 ng/mL Note: Cardiac troponin begins to rise 3-4 hours after the onset of ischemia. Repeat in 4-6 hours if the sample was drawn within 3-4 hours of the onset of the symptom and found normal. Diagnosis of myocardial injury is made with acute changes in cTn concentrations with at least one serial sample above the 99th percentile upper reference limit (URL), taken together with the patient's clinical presentation. Biotin has been reported to cause a negative bias, interpret results relative to patient's use of biotin. Lab Interpretation (test code = Normal 16353-4) [facility] 02:34:03 Test Item Value Reference Range Interpretation Comments MAGNESIUM (test code = 1277166310) 2.4 mg/dL 1.7-2.4 Lab Interpretation (test code = Normal 51392-8) [facility] ChildrenCOMP. METABOLIC PANEL (01927)2022-11-19 02:33:42 Test Item Value Reference Range Interpretation Comments NA (test code = 141 mmol/L 135-145 0080817987) K (test code = 3.9 mmol/L 3.5-5.0 0947635654) CL (test code = 103 mmol/L 98-108 7728692860) CO2 TOTAL (test code = 27 mmol/L 23-31 7075663132) AGAP (test code = 11 2-16 4403435095) BUN (test code = 25 mg/dL 7-23 H 0317920204) GLUCOSE (test code = 109 mg/dL 70-110 8963051581) CREATININE (test code = 0.82 mg/dL 0.50-1.04 5466204729) TOTAL BILI (test code = 0.4 mg/dL 0.1-1.4 1062664732) CALCIUM (test code = 9.6 mg/dL 8.6-10.6 7599244492) T PROTEIN (test code = 6.9 g/dL 6.3-8.2 4159186367) ALBUMIN (test code = 4.3 g/dL 3.5-5.0 9178987043) ALK PHOS (test code = 80 U/L 34-122 2757007939) ALTv (test code = 17 U/L 5-35 1742-6) AST(SGOT) (test code = 20 U/L 13-40 2412619001) eGFR (test code = 68.5 mL/min/1.73m2 4565502932) TICO (test code = TICO) Association of Glomerular Filtration Rate (GFR) and Staging of Kidney Disease* + --+ --+ ------+| GFR (mL/min/1.73 m2) ?| With Kidney Damage ?| ?Without Kidney Damage+ --------+ --------+ +| ?>90 ?| ?Stage one ?| ? Normal ?+ ---+ ---+ -------+| ?60-89 ?| ?Stage two ?| ? Decreased GFR ? + --+ --+ ------+| ?30-59 ?| ?Stage three ?| ? Stage three ? + --+ --+ ------+| ?15-29 ?| ?Stage four ? | ? Stage four ?+ ---+ ---+ -------+| ?<15 (or dialysis) ? ?| ?Stage five ? | ? Stage five ?+ ---+ ---+ -------+ *Each stage assumes the associated GFR level [...] or urine or abnormalities in imaging tests). Lab Interpretation Abnormal (test code = 92312-3) [facility]23-05-[facility] 02:33:22 Test Item Value Reference Range Interpretation Comments LIPASE (test code = 2418310084) 81 U/L 0-220 Lab Interpretation (test code = Normal 92432-8) [facility] ChildrenCB WITH ZOUO8513-86-15 02:24:05 Test Item Value Reference Range Interpretation Comments WBC (test code = 8.98 See_Comment [Automated message] 8290-2) The system [employer] generated this result transmitted ref erence range: 4.30 - 1 1.10 10*3/?L. The re ference range was not u sed to interpret this result as normal/abnor mal. RBC (test code = 4.51 See_Comment [Automated message] 129-8) The system [employer] generated this result transmitted ref erence range: 3.93 - 5 .25 10*6/?L. The re ference range was not u sed to interpret this result as normal/abnor mal. HGB (test code = 13.3 g/dL 11.6-15.0 718-7) HCT (test code = 40.6 % 35.7-45.2 4544-3) MCV (test code = 90.0 fL 80.6-95.5 787-2) MCH (test code = 29.5 pg 25.9-32.8 785-6) MCHC (test code = 32.8 g/dL 31.6-35.1 786-4) RDW-SD (test code 44.5 fL 39.0-49.9 = 76639-9) RDW-CV (test code 13.6 % 12.0-15.5 = 788-0) PLT (test code = 326 See_Comment [Automated message] 947-3) The system [email or web address] generated this result transmitted ref erence range: 166 - 35 8 10*3/?L. The re ference range was not u sed to interpret this result as normal/abnor mal. MPV (test code = 10.2 fL 9.5-12.9 38554-1) NRBC/100 WBC (test 0.0 See_Comment [Automat ed message] code = [id number]) The [employer] m which generated this result transmitted ref erence range: 0.0 - 10 .0 /100 WBCs. The refer ence range was not u sed to interpret this result as normal/abnor mal. NRBC x10^3 (test See_Comment [Automated message] code = [id number]) The syste m which generated this result transmitted ref erence range: 10*3/?L. The reference range was not used to interpr et this result as normal/abnormal . GRAN MAT (NEUT) % 76.8 % (test code = 770-8) IMM GRAN % (test 0.30 % code = [id number]) LYMPH % (test code 15.1 % = 736-9) MONO % (test code 5.1 % = 5905-5) EOS % (test code = 2.3 % 713-8) BASO % (test code 0.4 % = 706-2) GRAN MAT 6.88 10*3/uL 1.88-7.09 x10^3(ANC) (test code = [id number]) IMM GRAN x10^3 0.03 10*3/uL 0.00-0.06 (test code = [id number]) LYMPH x10^3 (test 1.36 10*3/uL 1.32-3.29 code = 731-0) MONO x10^3 (test 0.46 10*3/uL 0.33-0.92 code = 742-7) EOS x10^3 (test 0.21 10*3/uL 0.03-0.39 code = 711-2) BASO x10^3 (test 0.04 10*3/uL 0.01-0.07 code = 704-7) [facility] URINALYSIS W/O SPECIFIC [id number] 19:37:00 Test Item Value Reference Range Interpretation Comments POCT PH U (test code = 3254) 5 mg/dl 5-8 POCT U LEUK EST (test code = trace Negative - Negative 3263) POCT U NIT (test code = 3262) negative Negative - Negative POCT U PROT (test code = 3259) trace Negative - Negative POCT U GLU (test code = 3256) negative Negative - Negative POCT U KETONE (test code = 3258) small Negative - Negative POCT U BLD (test code = 3257) trace Negative - Negative [facility] [id number] 19:37:00 Test Item Value Reference Range Interpretation Comments POCT PH U (test code = 3254) 5 mg/dl 5-8 POCT U LEUK EST (test code = trace Negative - Negative 3263) POCT U NIT (test code = 3262) negative Negative - Negative POCT U PROT (test code = 3259) trace Negative - Negative POCT U GLU (test code = 3256) negative Negative - Negative POCT U KETONE (test code = 3258) small Negative - Negative POCT U BLD (test code = 3257) trace Negative - Negative [facility] METABOLIC PANEL ([id number])2021-10-18 13:29:12 Test Item Value Reference Range Interpretation Comments NA (test code = 142 mmol/L 135-145 6344087662) K (test code = 4.4 mmol/L 3.5-5.0 6025655814) CL (test code = 103 mmol/L 98-108 2026023474) CO2 TOTAL (test code 29 mmol/L 23-31 = 9417978328) AGAP (test code = 2-16 7254060558) BUN (test code = 22 mg/dL 7-23 9834271975) GLUCOSE (test code = 104 mg/dL 70-110 2649857269) CREATININE (test code 0.79 mg/dL 0.50-1.04 = 0717520315) TOTAL BILI (test code 0.4 mg/dL 0.1-1.1 = 9989205314) CALCIUM (test code = 9.3 mg/dL 8.6-10.6 9081035075) T PROTEIN (test code 7.0 g/dL 6.3-8.2 = 0417609350) ALBUMIN (test code = 4.5 g/dL 3.5-5.0 1714901467) ALK PHOS (test code = 67 U/L 34-122 2264451866) ALTv (test code = 13 U/L 5-35 1742-6) AST(SGOT) (test code 20 U/L 13-40 = 6273829892) eGFR (test code = mL/min/1.73m2 4350161436) TICO (test code = TICO) Association of Glomerular Filtration Rate (GFR) and Staging of Kidney Disease* + + +- +| GFR (mL/min/1.73 m2) ?| With Kidney Damage ?| ?Without Kidney Damage+ ------+ ----+ ------+| ?>90 ?| ?Stage one ?| ? Normal ?+ -+ + -+| ?60-89 ?| ?Stage two ?| ? Decreased GFR ? + + +- +| ?30-59 ?| ?Stage three ?| ? Stage three ? + + +- +| ?15-29 ?| ?Stage four ? | ? Stage four ?+ -+ + -+| ?<15 (or dialysis) ? ?| ?Stage five ? | ? Stage five ?+ -+ + -+ *Each stage assumes the associated GFR level [...] urine or abnormalities in imaging tests). [facility] Children[facility]2022-04-[facility] 13:28:52 Test Item Value Reference Range Interpretation Comments LIPASE (test code = 0934376533) 61 U/L 0-220 Lab Interpretation (test code = Normal 38250-1) [facility] WITH [id number] 13:18:11 Test Item Value Reference Range Interpretation Comments WBC (test code = See_Comment [Automated message] 6690-2) The system [employer] generated this result transmitted ref erence range: 4.30 - 1 1.10 10*3/?L. The re ference range was not u sed to interpret this result as normal/abnor mal. RBC (test code = See_Comment [Automated message] 789-8) The system [employer] generated this result transmitted ref erence range: [...] RDW-SD (test code 46.3 fL 39.0-49.9 = 58814-5) RDW-CV (test code 13.5 % 12.0-15.5 = 788-0) PLT (test code = See_Comment [Automated message] 777-3) The system [employer] h generated this result transmitted ref erence range: 166 - 35 8 10*3/?L. The re ference range was not u sed to interpret this result as normal/abnor mal. MPV (test code = 9.8 fL 9.5-12.9 62848-8) NRBC/100 WBC (test See_Comment [Automat ed message] code = 1016889153) The syste m which generated this result transmitted ref erence range: 0.0 - 10 .0 /100 WBCs. The refer ence range was not u sed to interpret this result as normal/abnor mal. NRBC x10^3 (test <0.01 See_Comment [Automated message] code = 0302185689) The syste m which generated this result transmitted ref erence range: 10*3/?L. The reference range was not used to interpr et this result as normal/abnormal . GRAN MAT (NEUT) % 68.4 % (test code = 770-8) IMM GRAN % (test 0.40 % code = 2323228694) LYMPH % (test code 19.0 % = 736-9) MONO % (test code 6.7 % = 5905-5) EOS % (test code = 4.8 % 713-8) BASO % (test code 0.7 % = 706-2) GRAN MAT 5.03 10*3/uL 1.88-7.09 x10^3(ANC) (test code = 0072332555) IMM GRAN x10^3 0.03 10*3/uL 0.00-0.06 (test code = 4259271760) LYMPH x10^3 (test 1.40 10*3/uL 1.32-3.29 code = 731-0) MONO x10^3 (test 0.49 10*3/uL 0.33-0.92 code = 742-7) EOS x10^3 (test 0.35 10*3/uL 0.03-0.39 code = 711-2) BASO x10^3 (test 0.05 10*3/uL 0.01-0.07 code = 704-7) [facility] [id number] 15:53:00 Test Item Value Reference Range Interpretation [...] mg/dl 8.0-10.5 N COVID 19 Asymptomatic IH [id number] 15:45:00 Test Item Value Reference Range Interpretation Comments COVID 19 NEGATIVE NEGATIVE Negative result s should be Asymptomatic IH AG treated a s presumptive and (test code = ifinconsistent with COVNONPUIAG) clinical signs and symptoms, or ne cessaryfor patient managem ent, should be tested with an alternativemole cular assay. Negative results do not preclude JHWZ-BnD-3efxeb tion and should not be u sed as the sole basis forp atient management deci sions. Negative result s should beconsidered in the context of a pa triston's recent exposure s,history, presence of cli nical signs and symptoms consistentwith COVID-19. Specimen comments: [facility] not [facility]AUT[facility] [id number] 15:43:00 Test Item Value Reference Range Interpretation [...] 0.00-0.01 N NRBC#) COVID 19 Asymptomatic IH [id number] 07:56:00 Test Item Value Reference Range Interpretation Comments COVID 19 Asymptomatic IH POSITIVE NEGATIVE A BY [id number] 06/26/20 AG (test code = 0756 COVNONPUIAG) Specimen comments: If not done this admissionComments to [employer]: RAPID COVID Notes Date/Time Note Provider Source 2020-07-24 10:32:00-00:00 [id number] [facility] and [id number] [place], [place] [address] PATIENT NAME: BRUNO SIMMONS ADMIT DATE: 06/30 12/17 ACCOUNT NO: [id number] DISCHARGE DATE: 1 ROOM NO: REPORT TYPE: OPERATIVE REPORT DATE OF : AGE: 70 SEX: F ADMITTING PHYSICIAN: ATTENDING PHYSICIAN:Carlos Rahman MD OPERATION DATE: 07/24/2020 PREOPERATIVE DIAGNOSIS: Left wrist de Qu ervain with extensive tenosynovitis of the first dorsal wrist compartment. POSTOPERATIVE DIAGNOSIS: Lef t wrist de Quervain with extensive tenosynovitis of the first dorsal wrist compartment. PROCEDURES: 1. Left wrist open de Quervain's release. 2. Left wrist first dorsal compartment tenosynov ectomy with small cyst excisions. SURGEON: Carlos Rahman MD MEAT SOAKER: Jignesh Bui, licensed surgical as sistant. ANESTHESIA: General. BLOOD LOSS: Minimal. COMPLICATIONS: None. INDICATIONS: A 70-year-old with persistent pain and swelling ____ around de Quervain's compartment that failed conservative treatment. She wished to proceed with surgical intervention. Risks, benef its, and complications were discussed and she wished to proceed with the gonsalo jennifer. PROCEDURE IN DETAIL: After s he was correctly identified and properly consented, she was brought to the operating room and she un derwent a general anesthesia. Tourniquet was then applied to the left upper arm over some soft roll. The left arm was prepped and draped. A formal timeout was performed. The arm was exsanguinated and the tourniquet was inflated. A longitudinal incision was carried out over the de Quervain's compartment. Very careful dissection was performed around the neural structures. Care was taken not to overstretch the nerves ____. Multiple inflammatory cysts arising from the first dorsal compartment. I opened up the first dorsal compar tment and massive amount of fluid was obtained within the tendon sheath. The inflammatory cysts were excised. I made sure that all ____ of tendon wer e fully decompressed. Then, I did a tenosynovectomy with a small pair of tenot steve scissors removing all of inflammatory tissue from surrounding tendons. At the end of the case, we irrigated and I then released the tourniquet. So me electrocautery was used. I then injected about 10 mL of 0.25% Marcaine with epinephrine and once hemostasis PATIENT NAME: BRUNO SIMMONS [id number] was obtained ____ with inter rupted 3-0 Prolene. It was then dressed sterilely. She was awakened and moved back to the recovery room in stable condition. Dictated By: Carlos Rahman MD WT: OP:ENANDO/DANIELLA/BRADLEY Conf#: [id number]/DID#: [id number] Authenticated by Carlos Rahman MD On 07:09:52 AM at 0710 PATIENT NAME: BRUNO SIMMONS ACCOUNT #: [id number] 2020-06-26 08:06:00-00:00 [facility] [address] [place], [place] [id number] ELECTROCARDIOGRAM Patient: BRUNO SIMMONS Unit #: [id number] Sex/Age: F 70 : 50 Admit Date: Location: [facility] Physician: Carlos Rahman MD Room/Bed: Order: [id number] Test Reason : PROCEDURE Test Date/Time Stamp: ThuJun 26 2020 08:06:19 Blood Pressure : / mmHG Vent. Rate : 066 BPM Atrial Rate : 066 BPM P-R Int : 156 ms QRS Dur : 092 ms QT Int : 430 ms P-R-T Axes : 015 -38 059 degree s QTc Int : 450 ms Normal sinus rhythm Left axis deviation Minimal voltage criteria for LVH, may be normal variant Possible Anterolateral infarct old Abnormal ECG When compared with ECG of 05-JUL-2012 15:15, Borderline criteria for Anterior infarct are now present Borderline criteria for Anterolateral infarct ar e now present Nonspecific T wave abnormality now evident in La teral leads Confirmed by ALEJANDRO BABCOCK MD ([id number]) on 2019 2:08:25 PM Referred By: Carlos Rahman Confirmed by:ALEJANDRO SERNA MD Electronically Signed by Alejandro Babcock MD on 1 08/27/19 at 1408 dd/t: 06/26/20 0806"
[2022-11-23 11:59] LABS: Absolute Lymphocytes (CBC) 1.1 K/uL (0.7-4.9); Hematocrit 38.2 % (36.0-45.0); Lymphocytes % 16.4 % (15.3-44.8); MCV 88.7 fL (80-100); MPV 7.7 fL (7.6-11.3); RBC Red Blood Cell Count 4.31 M/uL (3.86-4.86)
[2022-11-23 12:20] LABS: Specific Gravity 1.026 (1.005-1.030); Transitional Epithelial <5 /HPF (None Seen); Urine Bacteria <20 /HPF (<20); Urine Bilirubin NEGATIVE (Negative); Urine Blood Negative (Negative); Urine Clarity Clear (Clear); Urine Color Light-Yellow (Yellow); Urine Glucose NEGATIVE (Negative); Urine Mucus Slight /HPF (None Seen); Urine Protein NEGATIVE (Negative); Urine Urobilinogen Normal (Normal)
[2022-11-23 12:23] LABS: Albumin 3.7 g/dL (3.4-5.0); Bilirubin Total 0.3 mg/dL (0.2-1.0); Protein, Total 7.1 g/dL (6.4-8.2)
[2022-11-23 12:24] LABS: Potassium 4.2 mEq/L (3.5-5.1)
--- NOTE | 2022-11-23 12:35 | RAD REPORT ---
EXAM DESCRIPTION: CTAbdomen Pelvis W Contrast - 11/23/2022 12:11 pm CLINICAL HISTORY: FLANK PAIN COMPARISON: Chest Single View dated 08/08/2019; Chest Single View dated 02/26/2017; CHEST SINGLE VIEW dated 10/23/2014; CHEST SINGLE VIEW dated 05/02/2014bdomen Pelvis W Contrast dated 03/09/2022; Abdome n Pelvis W Contrast dated 11/24/2019; Abdomen Pelvis W Contrast dated 04/10/2016; Abdomen Pelvis W Contrast dated 04/05/2016 TECHNIQUE: CT of the abdomen and pelvis was performed. All CT scans are performed using dose optimization technique as appropriate and may include automated exposure control or mA/KV adjustment according to patient size. FINDINGS: Lower chest: No acute abnormality. Liver: No acute abnormality or suspicious lesions. Biliary: No biliary ductal dilatation. Stomach: No significant focal abnormality. Duodenum: No significant focal abnormality. Pancreas: No significant abnormality. Spleen: No significant abnormality. Adrenal: No suspicious lesions. Kidney/ureter: No hydronephrosis. No renal calculi. Left renal sinus cysts. Retroperitoneum: No retroperitoneal adenopathy. Vascular: No aneurysm. Bowel: No significant focal abnormality. Partial colectomy. No appendicitis. Peritoneum: No ascites or free air. Small fat containing ventral hernia. Bladder: Grossly unremarkable. Reproductive: No adnexal masses. Hysterectomy. Bones: No acute fracture. Fusion hardware in the spine. Other: n/a IMPRESSION: No acute intra-abdominal or pelvic finding. No urinary tract calculi.
[2022-11-23] MEDS ORDERED: NA CHLORIDE 0.9% 500 ML ONE (12:48)
--- NOTE | 2022-11-23 13:11 | EDPHYS ---
Physician Documentation [facility] Name: Scarlet Simmons Age: 72 yrs Sex: Female : 1950 Arrival Date: 11/23/2022 Time: 10:57 Bed 12 Private MD: Hill Pinon ED Physician Meet Roth HPI: 11/23 11:24 This 72 yrs old Female presents to ER via Ambulatory with complaints of Flank Pain, jmm Pain With Urination. 11:24 The patient complains of pain in the right flank. Onset: The symptoms/episode jmm began/occurred gradually. 16:14 This is a 72-year-old female with history of hypothyroidism that presents emerged part [facility] with complaints of right flank pain which has been ongoing since being diagnosed with a kidney infection this past Thursday. Patient states she took ciprofloxacin without relief of symptoms.. Historical: - Allergies: 11:09 Latex, Natural Rubber; nj1 11:09 Nitrofurantoin Macrocrystal; nj1 11:09 Phenergan; nj1 11:09 sulfamethoxazole-trimethoprim; nj1 - PMHx: 11:09 bowel obstruction; Hypothyroidism; Intestinal rupture; Neuropathy; nj1 - PSHx: 11:09 Colostomy; Colostomy reversal; nj1 - Immunization history:: Client reports having NOT received the Covid vaccine. - Social history:: Smoking status: Patient denies any tobacco usage or history of. ROS: 16:49 Constitutional: Negative for fever, chills, and weight loss, Cardiovascular: Negative jmm for chest pain, palpitations, and edema, Respiratory: Negative for shortness of breath, cough, wheezing, and pleuritic chest pain. 16:49 Abdomen/GI: Positive for abdominal pain, nausea. 16:49 Back: Positive for flank pain, on the right. 16:49 All other systems are negative. Exam: 16:49 Constitutional: This is a well developed, well nourished patient who is awake, alert, jmm and in no acute distress. Head/Face: atraumatic. Eyes: EOMI, no conjunctival erythema appreciated ENT: Moist Mucus Membranes Neck: Trachea midline, Supple Chest/axilla: Normal chest wall appearance and motion. Cardiovascular: Regular rate and rhythm. No edema appreciated Respiratory: Normal respirations, no respiratory distress appreciated 16:49 Skin: General appearance color normal MS/ Extremity: Moves all extremities, no obvious deformities appreciated, no edema noted to the lower extremities Neuro: Awake and alert Psych: Behavior is normal, Mood is normal, Patient is cooperative and pleasant 16:49 Abdomen/GI: Inspection: abdomen appears normal, Bowel sounds: normal, Palpation: soft, mild abdominal tenderness, in the right upper quadrant. 16:49 Back: CVA tenderness, that is mild, is noted on the right. Vital Signs: 11:10 BP 158 / 88; Pulse 93; Resp 18; Temp 98.8(O); Pulse Ox 98% on R/A; Weight 86.18 kg; nj1 Height 5 ft. 0 in. ; Pain 1010; 11:10 Body Mass Index 37.11 (86.18 kg, 152.4 cm) [facility] 11:10 Pain Scale: Adult nj MDM: 11:24 Patient medically screened. [facility] 16:49 Differential diagnosis: pyelonephritis, UTI, pancreatitis, Cholecystitis. Data [facility] reviewed: vital signs, nurses notes, lab test result(s), radiologic studies, CT scan. I considered the following discharge prescriptions or medication management in the emergency department Medications were administered in the Emergency Department. See MAR. Counseling: I had a detailed discussion with the patient and/or guardian regarding: the historical points, exam findings, and any diagnostic results supporting the discharge/admit diagnosis, radiology results, the need for outpatient follow up, to return to the emergency department if symptoms worsen or persist or if there are any questions or concerns that arise at home. ED course: Labs and imaging studies were unremarkable. Patient advised to follow-up with GI for further evaluation due to right upper quadrant abdominal pain. Patient encouraged to continue antibiotics. Otherwise advised to return to the ER if she develops worsening symptoms. Patient understood and agrees to plan of care.. 11/23 11:26 Order name: CBC with Diff; Complete Time: 12:42 [facility] 11/23 11:26 Order name: CMP; Complete Time: 12:27 [facility] 11/23 11:26 Order name: Lipase; Complete Time: 12:27 [facility] 11/23 11:26 Order name: Urinalysis w/ reflexes; Complete Time: 12:21 [facility] 11/23 11:26 Order name: CT Abd/Pelvis - IV Contrast Only; Complete Time: 12:36 [facility] 11/23 11:26 Order name: IV Saline Lock; Complete Time: 11:57 [facility] 11/23 11:26 Order name: Labs collected and sent; Complete Time: 11:50 [facility] Administered Medications: 12:46 Drug: NS 0.9% IV 500 ml Route: IV; Rate: bolus; Site: right antecubital; ap3 14:05 Follow up: IV Status: Completed infusion ap3 Disposition Summary: 11/23/22 13:10 Discharge Ordered Location: Home [facility] Condition: Stable [facility] Diagnosis - Epigastric pain [facility] - Flank Pain [facility] Followup: [facility] - With: Lyndon Jimenez MD - When: 2 - 3 days - Reason: Recheck today's complaints, Continuance of care, Re-evaluation by your physician Discharge Instructions: - Discharge Summary Sheet [facility] - Flank Pain, Adult [facility] Forms: - Medication Reconciliation Form [facility] - Thank You Letter [facility] - Antibiotic Education [facility] - Prescription Opioid Use [facility] Prescriptions: - Pepcid 20 mg Oral Tablet - take 1 tablet by ORAL route every 12 hours for 10 days; 20 tablet; Refills: 0, [facility] Product Selection Permitted - dicyclomine 20 mg Oral Tablet - take 1 tablet by ORAL route 4 times per day As needed; 30 tablet; Refills: 0, [facility] Product Selection Permitted Signatures: Dispatcher [employer] Joshua Myers PA PA Abby Martin, RN RN ap3 Valeria Harrell RN RN nj1
--- NOTE | 2022-11-23 13:11 | ER ---
Nurse's Notes [facility] Name: Scarlet Simmons Age: 72 yrs Sex: Female : 1950 Arrival Date: 11/23/2022 Time: 10:57 Bed 12 Private MD: Hill Pinon Diagnosis: Epigastric pain;Flank Pain Presentation: 11/23 11:10 Chief complaint: Patient states: Went to ED in [place] on Thursday, dx with "kidney nj1 infection" taking antibiotics prescribed, states pain is getting worse. Coronavirus screen: Vaccine status: Patient reports being unvaccinated. Ebola Screen: Patient denies travel to an Ebola-affected area in the 21 days before illness onset. Initial Sepsis Screen: Does the patient meet any 2 criteria? HR > 90 bpm. No. Patient's initial sepsis screen is negative. Does the patient have a suspected source of infection? No. Patient's initial sepsis screen is negative. Risk Assessment: Do you want to hurt yourself or someone else? Patient reports no desire to harm self or others. Onset of symptoms was October 24, 2022. 11:10 Method Of Arrival: Ambulatory nj 11:10 Acuity: YESY 3 nj1 Historical: - Allergies: 11:09 Latex, Natural Rubber; nj1 11:09 Nitrofurantoin Macrocrystal; nj1 11:09 Phenergan; nj1 11:09 sulfamethoxazole-trimethoprim; nj1 - PMHx: 11:09 bowel obstruction; Hypothyroidism; Intestinal rupture; Neuropathy; nj1 - PSHx: 11:09 Colostomy; Colostomy reversal; nj1 - Immunization history:: Client reports having NOT received the Covid vaccine. - Social history:: Smoking status: Patient denies any tobacco usage or history of. Screenin:52 [facility] ED Fall Risk Assessment (Adult) History of falling in the last 3 months, ap3 including since admission No falls in past 3 months (0 pts). Abuse screen: Denies threats or abuse. Nutritional screening: No deficits noted. Tuberculosis screening: No symptoms or risk factors identified. Assessment: 11:52 General: Appears in no apparent distress. Behavior is calm, cooperative, appropriate ap3 for age. Pain: Complains of pain in right flank Pain began gradually. Neuro: Level of Consciousness is awake, alert, obeys commands, Oriented to person, place, time, situation, Gait is steady, Speech is normal. Cardiovascular: Patient's skin is warm and dry. Respiratory: Airway is patent Respiratory effort is even, unlabored, Respiratory pattern is regular, symmetrical. : Reports pain in right flank(s), urinary frequency. 13:32 Reassessment: awaiting patients fluids to complete prior to her departure. ap3 Vital Signs: 11:10 BP 158 / 88; Pulse 93; Resp 18; Temp 98.8(O); Pulse Ox 98% on R/A; Weight 86.18 kg; nj1 Height 5 ft. 0 in. ; Pain 10/10; 11:10 Body Mass Index 37.11 (86.18 kg, 152.4 cm) nj1 11:10 Pain Scale: Adult [facility] ED Course: 10:59 Patient arrived in ED. am2 10:59 Hill Pinon MD is Private Physician. am2 11:01 Joshua Sequeira PA is PHCP. [facility] 11:01 Meet Roth MD is Attending Physician. m 11:11 Triage completed. nj1 11:11 Arm band placed on left wrist. nj1 11:50 Urinalysis w/ reflexes Sent. bc6 11:50 CBC with Diff Sent. bc6 11:50 CMP Sent. bc6 11:50 Lipase Sent. bc6 11:50 Missed attempt(s): 20 gauge in left antecubital area. bc6 11:52 Abby Correa, RN is Primary Nurse. ap3 11:52 Allergy band placed. Pulse ox on. NIBP on. Door closed. Noise minimized. Warm blanket ap3 given. 11:57 Inserted saline lock: 20 gauge in right antecubital area, using aseptic technique. bc6 12:13 CT Abd/Pelvis - IV Contrast Only In Process Unspecified. EDMS 13:10 Lyndon Jimenez MD is Referral Physician. [facility] 14:06 No provider procedures requiring assistance completed. IV discontinued, intact, ap3 bleeding controlled, No redness/swelling at site. Pressure dressing applied. Administered Medications: 12:46 Drug: NS 0.9% IV 500 ml Route: IV; Rate: bolus; Site: right antecubital; ap3 14:05 Follow up: IV Status: Completed infusion ap3 Medication: 11:53 VIS not applicable for this client. ap3 Outcome: 13:10 Discharge ordered by MD. torres 14:06 Discharged to home ambulatory. ap3 14:06 Condition: good 14:06 Discharge instructions given to patient, Instructed on discharge instructions, follow up and referral plans. Demonstrated understanding of instructions, follow-up care, medications, Prescriptions given X 2. 14:06 Patient left the ED. ap3 Signatures: Dispatcher [employer] EDMS Joshua Sequeira PA PA jmm Moreno, Amanda am2 Abby Correa RN RN ap3 Dejah New 6 Valeria Harrell RN RN nj1
[2022-11-23 14:15] VITALS: BP 158/88; TEMP 98.8; O2SAT 98
== END 2022-11-23 14:06 | disposition home or self-care (01) ==
LOC: ER 10:57
DX: R10.13 Epigastric pain (principal); Z88.2 Allergy status to sulfonamides; Z88.8 Allergy status to other drugs, medicaments and biological substances; Z91.040 Latex allergy status; Z91.048 Other nonmedicinal substance allergy status
CPT/HCPCS: 85025; 81001; 36415; 82565; 83690; 80053; 74177; 96360; 99284; Q9967; J7040

== ENCOUNTER 2022-12-03 14:38 | Emergency (ER) | payer OTHER ==
--- OUTSIDE RECORDS SUMMARY | 2022-12-03 14:46 | XMS REPORT | Continuity of Care Document ---
:1950 Author Organization [facility] t Address [address] [place] [place] [address] Care Team Providers Name Role Phone Hill Pinon MD Primary Care Physician MARCELA EVLEZ Attending Clinician Unavailable ESE TERAN Attending Clinician Unavailable Ese Teran DO Attending Clinician Doctor Unassigned, [place] Attending Clinician Unavailable Marcela Velez MD Attending Clinician 2, [facility] Attending Clinician Unavailable Mirza Duong PA-C Attending Clinician MIRZA DUONG Attending Clinician Unavailable NAJMA POWELL Attending Clinician Unavailable Najma Vogel Attending Clinician Abby Rivera MD Attending Clinician ABBY RIVERA Attending Clinician Unavailable ROSLYN JAVIER Attending Clinician Unavailable Benny TITLE CURATOR, Roslyn Owen Attending Clinician GAY LAKHANI Attending Clinician Unavailable Donna LEONARD, Gay Contreras Attending Clinician ISMAEL GONZÁLES Attending Clinician Unavailable Ismael Gonzáles MD Attending Clinician Radha Jacome MD Attending Clinician RADHA JACOME Attending Clinician Unavailable Jeff Contreras Attending Clinician Shona RN, Ashleigh Tadeo Attending Clinician Unavailable Provider, [facility] Attending Clinician Unavailable Only, Ang Db Test Attending Clinician Unavailable TASH JONES Attending Clinician Unavailable Carlos Rahman Attending [...] Number Effective Date Expiration Date S abimbola [facility] MEDICARE [id number] 2018 COMPLETE CHOICE 00:00:00 [id number] 2021 00:00:00 [id number] 2014 00:00:00 DERRICK/JOSLYN ROBLERO [id number] 2022 ADV CHOICE PPO 00:00:00 Problems Condition [...] a 00 l Cerebrovas Cerebrovas Disease Active 2018-0 M ethodi cular cular 6-13 st accident [...] s Branch Trimetho Propensi Active Unknown - 2019-0 Sulfameth Univers prim ty to See comments 8-20 oxaloe ity of adverse 00:00: [place] reaction 00 Medical s Branch LATEX DRUG Active Rash 2020-0 Univers INGREDI 8-20 ity of 00:00: [place] 00 Medical Branch TRIMETHO DRUG Active Unknown-Cmnt 2020-0 Un hien PRIM INGREDI 8-20 ity of 00:00: [place] 00 Medical Branch Phenerga Propensi Active Unknown - 2018-06 Uni vers n Plain ty to See comments 0-09 ity of adverse 00:00: [place] reaction 00 Medical s Branch PHENERGA DRUG Active Unknown-Cmnt 2019 Un hien N PLAIN 0-09 ity of 00:00: [place] 00 Medical Branch Honey Propensi Active Hives 2018-0 Methodi ty to 6-14 st adverse 00:00: Hospita reaction 00 l s to drug Honey Propensi Active Hives 2017-0 Univers ty to 6-14 ity of adverse 00:00: [place] reaction 00 Medical s Branch HONEY DRUG Active Hives 2018-0 Univers INGREDI 6-14 ity of 00:00: [place] 00 Medical Branch Adhesive Propensi Active 2017-0 Causes Method i Tape-Sasha ty to 5-[address] icones adverse 00:00: blister Hospita reaction 00 l s to drug Adhesive Propensi Active Other - See Causes U nivers Tape-Sasha ty to comments 5-11 skin ity of icones adverse 00:00: blister [place] reaction 00 Medical s Branch ADHESIVE DRUG Active Other-Cmnt 0 Univ ers TAPE-SASHA 5-11 ity of ICONES 00:00: [place] 00 Medical Branch Sulfamet Propensi Active Rash 2018-0 blister Metho di hoxazole ty to 5-10 st -Trimeth adverse 00:00: Hospita oprim reaction 00 l s to drug Latex Propensi Active 2017-0 blisters Method i ty to 5-10 st adverse 00:00: Hospita reaction 00 l s to drug Nitrofur Propensi Active Rash 2017-0 blister Metho di antoin ty to 5-10 st Monohyd/ adverse 00:00: Hospita M-Cryst reaction 00 l s to drug Nitrofur Propensi Active 2017-0 Method i antoin ty to 5-10 st Macrocry adverse 00:00: Hospita stal reaction 00 l s to drug Prometha Propensi Active GI 0 Nausea Method i zine ty to Intolerance 5-[address] adverse 00:00: vomiting Hospita reaction 00 l s to drug Nitrofur Propensi Active Other - See 2018-0 U nivers antoin ty to comments 5-10 ity of Macrocry adverse 00:00: [place] stalline reaction 00 Medica l s Branch NITROFUR DRUG Active Other-Cmnt 0 Univ ers ANTOIN INGREDI 5-10 ity of MACROCRY 00:00: [place] STALLINE 00 Medical Branch prometha DA Active [facility] zine HCl 1-08 [place] [facility] Sulfa [...] Stop Date Source Natural mother [facility] Maternal grandmother Heart disease [facility] Social History Social Habit Start Date Stop Date Quantity Comments Source Gender identity [facility] History SDOH [facility] Frequency Hospita l History SDOH [facility] Std Drinks Hospit al History SDOH [facility] B[facility] Exposure to 2022-11-08 2022-11-18 Not sure University SARS-CoV-2 (event) 00:00:00 18:43:00 [facility] Tobacco use and 2022-07-31 2022-07-31 Smokeless Universit y of exposure 00:00:00 00:00:00 tobacco non-user [facility] History of Social 2018-05-10 2018-05-[address] function 00:00:00 00:00:00 Hospital Alcohol intake 2017-12-10 2017-12-10 Current drinker [facility] dist 00:00:00 00:00:00 of alcohol Hospital (finding) Alcohol Comment 2017-11-05 2017-11-05 rarely [facility] 00:[facility] 00:[facility]:00 Hospital Sex Assigned At [birth year] [facility] 00:00:00 00:[facility]:00 Hospital Smoking Status Start Date Stop Date Source Never smoked tobacco [facility] [place] [facility] Medications Ordered Filled Start Stop Current Ordering Indication Dosage Frequency Signature Comments Components Source Medication Medication Date Date Medication? Clinician (SIG) Name Name iopamidol 2022- No [id number] 70mL 70 mL, Univers (ISOVUE 11-19 Intravenou [...] Medical Infusion, Branch ONCE, 1 dose, On Thu11/18/22 at 2230, DARIO cefTRIAXone 2022- No 1000mg 1,000 mg, Univers (ROCEPHIN) 11-19 IV ity of 1,000 mg in 02:45: 03:25 Piggyback, [place] NaCl 0.9% 00 :00 ONCE, 1 Medical (NS) 100 mL dose, On Bran ch [facility] 11/18/22 at 2145, Administer over 30 Minutes, 100 mL
Reas on for Anti-Infec tive: Documented Infection< br>Documen jack Infection Site: Urine<br&g t;Duration of Therapy: 7 days ketorolac 2022- No 15mg 15 mg, Unive rs (TORADOL) 11-19 Slow IV ity of injection 01:00: 01:55 Push, [place] 15 mg 00 :00 ONCE, 1 Medical dose, On Branch [facility] 11[facility]22 at 2000, Routine maalox:diph 2022- No 15mL 15 mL, Uni vers enhydrAMINE 11-19 Oral, ity of :lidocaine 00:15: 01:55 ONCE, 1 Deep [place] 2 % viscous 00 :00 dose, On Medi kory 1:1:1 Tu Branch ([facility] 11/18/22 at [facility]) 1915, oral Routine suspension 15 mL maalox:diph 2022- Yes [id number] 10mL Swish and Univers enhydrAMINE 5-23 swallow 10 it y of :lidocaine 00:00: mL as [place] 2 % viscous 00 needed for Me dical 1:1:1 Oral Branch mucositis. cefpodoxime 3-0 2022- Yes [id number] 100mg Take 1 Univers 100 mg 5-23 05-31 tablet by ity of tablet 00:00: 04:59 mouth in [place] 00 :00 the Medical morning Branch and 1 tablet in the evening. Do all this for 7 days. clobetasoL 3-0 Yes [id number] Apply to Univers 0.05 % 5-02 area(s) 2 ity of ointment 00:00: (two) [place] 00 times Medical daily. Branch Apply to affected area twice a day for 4 weeks and then 3 times (M/W/F) a week clobetasoL 2023-0 Yes [id number] Apply to Univers 0.05 % 5-02 area(s) 2 ity of ointment 00:00: (two) [place] 00 times Medical daily. Branch Apply to affected area twice a day for 4 weeks and then 3 times (M/W/F) a week clobetasoL 3-0 Yes [id number] Apply to Univers 0.05 % 5-02 area(s) 2 ity of ointment 00:00: (two) [place] 00 times Medical daily. Branch Apply to affected area twice a day for 4 weeks and then 3 times (M/W/F) a week clobetasoL 3-0 Yes [id number] Apply to Univers 0.05 % 5-02 area(s) 2 ity of ointment 00:00: (two) [place] 00 times Medical daily. Branch Apply to affected area twice a day for 4 weeks and then 3 times (M/W/F) a week clobetasoL 2023-0 Yes [id number] Apply to Univers 0.05 % 5-02 area(s) 2 ity of ointment 00:00: (two) [place] 00 times Medical daily. Branch Apply to affected area twice a day for 4 weeks and then 3 times (M/W/F) a week clobetasoL 2023-0 Yes [id number] Apply to Univers 0.05 % 5-02 area(s) 2 ity of ointment 00:00: (two) [place] 00 times Medical daily. Branch Apply to affected area twice a day for 4 weeks and then 3 times (M/W/F) a week PARoxetine 2023-0 Yes [id number] 10mg Take 1 Univers (PAXIL) 10 3-08 tablet by ity of mg tablet 00:00: [place] 00 the Medical morning. Branch PARoxetine 2023-0 Yes [id number] 10mg Take 1 Univers (PAXIL) 10 3-08 tablet by ity of mg tablet 00:00: [place] 00 the Medical morning. Branch PARoxetine 2023-0 Yes [id number] 10mg Take 1 Univers (PAXIL) 10 3-08 tablet by ity of mg tablet 00:00: [place] 00 the Medical morning. Branch PARoxetine 3-0 Yes [id number] 10mg Take 1 Univers (PAXIL) 10 3-08 tablet by ity of mg tablet 00:00: [place] 00 the Medical morning. Branch PARoxetine 3-0 Yes [id number] 10mg Take 1 Univers (PAXIL) 10 3-08 tablet by ity of mg tablet 00:00: [place] 00 the Medical morning. Branch PARoxetine 3-0 Yes [id number] 10mg Take 1 Univers (PAXIL) 10 3-08 tablet by ity of mg tablet 00:00: [place] 00 the Medical morning. Branch PARoxetine 3-0 Yes [id number] 10mg Take 1 Univers (PAXIL) 10 3-08 tablet by ity of mg tablet 00:00: mouth [place] 00 the Medical morning. Branch PARoxetine 2023-0 Yes [id number] 10mg Take 1 Univers (PAXIL) 10 3-08 tablet by ity of mg tablet 00:00: [place] 00 the Medical morning. Branch PARoxetine 3-0 Yes [id number] 10mg Take 1 Univers (PAXIL) 10 3-08 tablet by ity of mg tablet 00:00: [place] 00 the Medical morning. Branch PARoxetine 2023-0 Yes [id number] 10mg Take 1 Univers (PAXIL) 10 3-08 tablet by ity of mg tablet 00:00: [place] 00 the Medical morning. Branch PARoxetine 2023-0 Yes [id number] 10mg Take 1 Univers (PAXIL) 10 3-08 tablet by ity of mg tablet 00:00: mouth in [facility] 00 the Medical morning. Branch amoxicillin 2022-0 Yes [id number] 1{tbl} Take 1 Univers -clavulanat 2-16 tablet by ity of e 00:00: mouth in [place] (AUGMENTIN) 00 the Medical 875-125 mg morning Branch per tablet and 1 tablet in the evening. amoxicillin 2022-0 Yes [id number] 1{tbl} Take 1 Univers -clavulanat 2-16 tablet by ity of e 00:00: mouth in [place] (AUGMENTIN) 00 the Medical 875-125 mg morning Branch per tablet and 1 tablet in the evening. amoxicillin 2022-0 Yes [id number] 1{tbl} Take 1 Univers -clavulanat 2-16 tablet by ity of e 00:00: mouth in [place] (AUGMENTIN) 00 the Medical 875-125 mg morning Branch per tablet and 1 tablet in the evening. amoxicillin 2022-0 Yes [id number] 1{tbl} Take 1 Univers -clavulanat 2-16 tablet by ity of e 00:00: mouth in [place] (AUGMENTIN) 00 the Medical 875-125 mg morning Branch per tablet and 1 tablet in the evening. amoxicillin 2022-0 Yes [id number] 1{tbl} Take 1 Univers -clavulanat 2-16 tablet by ity of e 00:00: mouth in [place] (AUGMENTIN) 00 the Medical 875-125 mg morning Branch per tablet and 1 tablet in the evening. amoxicillin 2022-0 Yes [id number] 1{tbl} Take 1 Univers -clavulanat 2-16 tablet by ity of e 00:00: mouth in [place] (AUGMENTIN) 00 the Medical 875-125 mg morning Branch per tablet and 1 tablet in the evening. amoxicillin 2022-0 Yes [id number] 1{tbl} Take 1 Univers -clavulanat 2-16 tablet by ity of e 00:00: mouth in [place] (AUGMENTIN) 00 the Medical 875-125 mg morning Branch per tablet and 1 tablet in the evening. amoxicillin 2022-0 Yes [id number] 1{tbl} Take 1 Univers -clavulanat 2-16 tablet by ity of e 00:00: mouth in [place] (AUGMENTIN) 00 the Medical 875-125 mg morning Branch per tablet and 1 tablet in the evening. amoxicillin Yes [id number] 1{tbl} Take 1 Univers -clavulanat 2-16 tablet by ity of e 00:00: mouth in [place] (AUGMENTIN) 00 the Medical 875-125 mg morning Branch per tablet and 1 tablet in the evening. amoxicillin Yes [id number] 1{tbl} Take 1 Univers -clavulanat 2-16 tablet by ity of e 00:00: mouth in [place] (AUGMENTIN) 00 the Medical 875-125 mg morning Branch per tablet and 1 tablet in the evening. amoxicillin Yes [id number] 1{tbl} Take 1 Univers -clavulanat 2-16 tablet by ity of e 00:00: mouth in [place] (AUGMENTIN) 00 the Medical 875-125 mg morning Branch per tablet and 1 tablet in the evening. amoxicillin 3- No [id number] 1{tbl} Take 1 Univers -clavulanat 2-16 05-02 tablet by it y of e 00:00: 00:00 mouth in [place] (AUGMENTIN) 00 :00 the Medical 875-125 mg morning Branch per tablet and 1 tablet in the evening. amoxicillin 2022- No [id number] 1{tbl} Take 1 Univers -clavulanat 2-16 05-02 tablet by it y of e 00:00: 00:00 mouth in [place] (AUGMENTIN) 00 :00 the Medical 875-125 mg morning Branch per tablet and 1 tablet in the evening. cyanocobala Yes 1000ug Inject Un hien min, 2-03 1,000 mcg ity of vitamin 12:11: as [place] B-12, (B-12 06 directed Medi kory COMPLIANCE) once every Br anch 1,000 month. mcg/mL Taken the injection beginning of the month cyanocobala Yes 1000ug Inject Un hien min, 2-03 1,000 mcg ity of vitamin 12:11: as [place] B-12, (B-12 06 directed Medi kory COMPLIANCE) [...] the month cyanocobala Yes 1000ug Inject Un hein min, 2-03 1,000 mcg ity of vitamin [...] as [place] B-12, (B-12 06 directed Medi koyr COMPLIANCE) once every Br anch ,000 month. [...] 2022- No 125ug Take 125 Univers ne 2-03 02-03 mcg by ity of (SYNTHROID) 12:10: 00:00 [place] 112 mcg 35 :00 every Medical tablet morning. Branch levothyroxi 3- No 125ug Take 125 Univers ne 2-03 02-03 mcg by ity of (SYNTHROID) 12:10: 00:00 [place] 112 mcg 35 :00 every Medical tablet morning. Branch gabapentin 3-0 Yes Take by Univ ers ER 300 mg 2-02 mouth ity of tablet, 11:47: daily. [place] extended 25 Medical release 24 Branch hr gabapentin 3-0 Yes Take by Univ ers ER 300 mg 2-02 mouth ity of tablet, 11:47: daily. [place] extended 25 Medical release 24 Branch hr gabapentin 3-0 Yes Take by Univ ers ER 300 mg 2-02 mouth ity of tablet, 11:47: daily. [place] extended 25 Medical release 24 Branch hr gabapentin 3-0 Yes Take by Univ ers ER 300 mg 2-02 mouth ity of tablet, 11:47: daily. [place] extended 25 Medical release 24 Branch hr gabapentin 3-0 Yes Take by Univ ers ER 300 mg 2-02 mouth ity of tablet, 11:47: daily. [place] extended 25 Medical release 24 Branch hr gabapentin 3-0 Yes Take by Univ ers ER 300 mg 2-02 mouth ity of tablet, 11:47: daily. [place] extended 25 Medical release 24 Branch hr gabapentin 3-0 Yes Take by Univ ers ER 300 mg 2-02 mouth ity of tablet, 11:47: daily. [place] extended 25 Medical release 24 Branch hr gabapentin 3-0 Yes Take by Univ ers ER 300 [...] 25 Medical release 24 Branch hr cyanocobala 2023-0 Yes 1000ug Inject Un ihen min, 2-02 1,000 mcg ity of vitamin 11:19: as [place] B-12, (B-12 36 directed Medi kory COMPLIANCE) once every Br anch 1,000 month. mcg/mL Taken the injection beginning of the month cyanocobala 2022-0 Yes 1000ug Inject Un hien min, 2-02 1,000 mcg ity of vitamin 11:19: as [place] B-12, (B-12 36 directed Medi kory COMPLIANCE) once every Br anch 000 month. mcg/mL Taken the injection beginning of the month PARoxetine 2022-0 Yes [id number] 10mg Take 1 Univers (PAXIL) 10 2-02 tablet by ity of mg tablet 00:00: mouth [place] 00 the Medical morning. Branch PARoxetine 2022-0 Yes [id number] 10mg Take 1 Univers (PAXIL) 10 2-02 tablet by ity of mg tablet 00:00: mouth [place] 00 the Medical morning. Branch PARoxetine 2022-0 Yes [id number] 10mg Take 1 Univers (PAXIL) 10 2-02 tablet by ity of mg tablet 00:00: mouth [place] 00 the Medical morning. Branch PARoxetine 2022-0 Yes [id number] 10mg Take 1 Univers (PAXIL) 10 2-02 tablet by ity of mg tablet 00:00: mouth [place] 00 the Medical morning. Branch PARoxetine 3-0 Yes [id number] 10mg Take 1 Univers (PAXIL) 10 2-02 tablet by ity of mg tablet 00:00: mouth [place] 00 the Medical morning. Branch PARoxetine 2022-0 Yes [id number] 10mg Take 1 Univers (PAXIL) 10 2-02 tablet by ity of mg tablet 00:00: mouth [place] 00 the Medical morning. Branch PARoxetine 3-0 Yes [id number] 10mg Take 1 Univers (PAXIL) 10 2-02 tablet by ity of mg tablet 00:00: mouth [place] 00 the Medical morning. Branch PARoxetine 3-0 Yes [id number] 10mg Take 1 Univers (PAXIL) 10 2-02 tablet by ity of mg tablet 00:00: mouth [place] 00 the Medical morning. Branch PARoxetine 3-0 Yes [id number] 10mg Take 1 Univers (PAXIL) 10 2-02 tablet by ity of mg tablet 00:00: mouth [place] 00 the Medical morning. Branch PARoxetine 2022-0 Yes [id number] 10mg Take 1 Univers (PAXIL) 10 2-02 tablet by ity of mg tablet 00:00: mouth [place] 00 the Medical morning. Branch PARoxetine 2022-0 Yes [id number] 10mg Take 1 Univers (PAXIL) 10 2-02 tablet by ity of mg tablet 00:00: mouth [place] 00 the Medical morning. Branch PARoxetine 2022-0 Yes [id number] 10mg Take 1 Univers (PAXIL) 10 2-02 tablet by ity of mg tablet 00:00: mouth [place] 00 the Medical morning. Branch PARoxetine 2022-0 Yes [id number] 10mg Take 1 Univers (PAXIL) 10 2-02 tablet by ity of mg tablet 00:00: mouth [place] 00 the Medical morning. Branch PARoxetine 2022-0 Yes [id number] 10mg Take 1 Univers (PAXIL) 10 2-02 tablet by ity of mg tablet 00:00: mouth [place] 00 the Medical morning. Branch PARoxetine 2022-0 3- No [id number] 10mg Take 1 Univers (PAXIL) 10 2-02 03-08 tablet by ity of mg tablet 00:00: 00:00 mouth in [place] 00 :00 the Medical morning. Branch PARoxetine 2022-0 3- No [id number] 10mg Take 1 Univers (PAXIL) 10 2-02 03-08 tablet by ity of mg tablet 00:00: 00:00 mouth in [place] 00 :00 the Medical morning. Branch gabapentin 2022-0 2022- No TAKE 1 Univ ers 300 mg 07-22 02-03 CAPSULE ity of capsule 00:00: 00:00 THREE [place] 00 :00 TIMES A Medical DAY FOR 28 Branch DAY(S) cyanocobala 2021-06 Yes INJECT 1 Un hien min 1,000 1-28 ML EVERY ity of mcg/mL 00:00: MONTH [place] injection 00 NEEDED Medical Branch cyanocobala 2021-06 Yes INJECT 1 Un hien min 1,000 1-28 ML EVERY ity of mcg/mL 00:00: MONTH [place] injection 00 NEEDED Medical Branch cyanocobala 2-1 [...] mcg by ity of tablet 00:00: mouth. [place] [facility] levothyroxi 2021-06 Yes 137ug Take 137 U nivers ne 137 mcg 1-25 mcg by ity of tablet 00:00: mouth. [place] [facility] levothyroxi 2021-06 Yes 137ug Take 137 U nivers ne 137 mcg 1-25 mcg by ity of tablet 00:00: mouth. [place] [facility] Branch levothyroxi 2021-06 Yes 137ug Take 137 U nivers ne 137 mcg 1-25 mcg by ity of tablet 00:00: mouth. [place] [facility] levothyroxi 2021-06 Yes 137ug Take 137 U nivers ne 137 mcg 1-25 mcg by ity of tablet 00:00: mouth. [place] [facility] Branch levothyroxi 2021-06 Yes 137ug Take 137 U nivers ne 137 mcg 1-25 mcg by ity of tablet 00:00: mouth. [place] [facility] Branch levothyroxi 2021-06 Yes 137ug Take 137 U nivers ne 137 mcg 1-25 mcg by ity of tablet 00:00: mouth. [place] [facility] levothyroxi 2021-06 Yes 137ug Take 137 U nivers ne 137 mcg 1-25 mcg by ity of tablet 00:00: mouth. Medical Branch levothyroxi 2021-06 Yes 137ug Take 137 U nivers ne 137 mcg 1-25 mcg by ity of tablet 00:00: mouth. [place] [facility] levothyroxi 2021-06 Yes 137ug Take 137 U nivers ne 137 mcg 1-25 mcg by ity of tablet 00:00: mouth. [place] [facility] levothyroxi 2021-06 Yes 137ug Take 137 U nivers ne 137 mcg 1-25 mcg by ity of tablet 00:00: mouth. [place] [facility] Branch levothyroxi 2021-06 Yes 137ug Take 137 U nivers ne 137 mcg 1-25 mcg by ity of tablet 00:00: mouth. [place] [facility] levothyroxi 2021-06 Yes 137ug Take 137 U nivers ne 137 mcg 1-25 mcg by ity of tablet 00:00: mouth. [place] [facility] levothyroxi 2021-06 Yes 137ug Take 137 U nivers ne 137 mcg 1-25 mcg by ity of tablet 00:00: mouth. [place] [facility] levothyroxi 2021-06 Yes 137ug Take 137 U nivers ne 137 mcg 1-25 mcg by ity of tablet 00:00: mouth. [place] [facility] levothyroxi 2021-06 Yes 137ug Take 137 U nivers ne 137 mcg 1-25 mcg by ity of tablet 00:00: mouth. [place] [facility] levothyroxi 2021-06 Yes 137ug Take 137 U nivers ne 137 mcg 1-25 mcg by ity of tablet 00:00: mouth. [place] [facility] levothyroxi 2021-06 Yes 137ug Take 137 U nivers ne 137 mcg 1-25 mcg by ity of tablet 00:00: mouth. [place] [facility] levothyroxi 2021-06 Yes 137ug Take 137 U nivers ne 137 mcg 1-25 mcg by ity of tablet 00:00: mouth. [place] [facility] levothyroxi 2021-06 Yes 137ug Take 137 U nivers ne 137 mcg 1-25 mcg by ity of tablet 00:00: mouth. [place] [facility] levothyroxi 2021-06 Yes 137ug Take 137 U nivers ne 137 mcg 1-25 mcg by ity of tablet 00:00: mouth. [place] [facility] levothyroxi 2021-06 Yes 137ug Take 137 U nivers ne 137 mcg 1-25 mcg by ity of tablet 00:00: mouth. [place] 00 Medical Branch iopamidol 2021-06- No [id number] 64mL 64 mL, U nivers (ISOVUE 1-10 11-10 Intravenou ity o f 370-500 mL) 03:00: 03:00 s, ONCE, 1 [place] injection 00 :00 dose, On Medica l 64 mL Wed Branch 05/07/22 at 2100, Routine ketorolac 2021-06- No 15mg 15 mg, Unive rs (TORADOL) 1-10 11-10 Slow IV ity of injection 01:45: 01:07 Push, [place] 15 mg 00 :00 ONCE, 1 Medical dose, On Branch Thu05/07/22 at 1945, Routine ondansetron 2021-06- No 4mg 4 mg, Slow Univers (ZOFRAN 1- 11-10 IV Push, ity of (PF)) 01:45: 01:06 ONCE, 1 [place] injection 4 00 :00 dose, On Medi kory mg Wed Branch 05/07/22 at 1945, DARIO NaCl 0.9% 2021-06- No 1000mL at 999 Uni vers (NS) bolus 1-10 11-10 mL/hr, ity of infusion 01:45: 03:16 1,000 mL, [place] 1,000 mL 00 :00 IV Medical Infusion, Branch ONCE, 1 dose, On Thu05/07/22 at 1945, DARIO ondansetron 2021-06 Yes [id number] 4mg Take 1 Univers 4 mg 1-09 tablet by ity of disintegrat 00:00: mouth [place] ing tablet 00 every 6 Medica l (six) Branch hours as needed for Nausea and Vomiting (N/V). dicyclomine 2021-06 Yes [id number] 20mg Take 1 Univers 20 mg 1-09 tablet by ity of tablet 00:00: mouth [place] 00 every 6 Medical (six) Branch hours as needed for Abdominal pain. ondansetron 2021-06 Yes [id number] 4mg Take 1 Univers 4 mg 1-09 tablet by ity of disintegrat 00:00: mouth [place] ing tablet 00 every 6 Medica l (six) Branch hours as needed for Nausea and Vomiting (N/V). dicyclomine 2021-06 Yes [id number] 20mg Take 1 Univers 20 mg 1-09 tablet by ity of tablet 00:00: mouth [place] 00 every 6 Medical (six) Branch hours as needed for Abdominal pain. ondansetron 2021-06 Yes [id number] 4mg Take 1 Univers 4 mg 1-09 tablet by ity of disintegrat 00:00: mouth [place] ing tablet 00 every 6 Medica l (six) Branch hours as needed for Nausea and Vomiting (N/V). dicyclomine 2021-06 Yes [id number] 20mg Take 1 Univers 20 mg 1-09 tablet by ity of tablet 00:00: mouth [place] 00 every 6 Medical (six) Branch hours as needed for Abdominal pain. ondansetron 2021-06 Yes [id number] 4mg Take 1 Univers 4 mg 1-09 tablet by ity of disintegrat 00:00: mouth [place] ing tablet 00 every 6 Medica l (six) Branch hours as needed for Nausea and Vomiting (N/V). dicyclomine 2021-06 Yes [id number] 20mg Take 1 Univers 20 mg 1-09 tablet by ity of tablet 00:00: mouth [place] 00 every 6 Medical (six) Branch hours as needed for Abdominal pain. ondansetron 2021-06 Yes [id number] 4mg Take 1 Univers 4 mg 1-09 tablet by ity of disintegrat 00:00: mouth [place] ing tablet 00 every 6 Medica l (six) Branch hours as needed for Nausea and Vomiting (N/V). dicyclomine 2021-06 Yes [id number] 20mg Take 1 Univers 20 mg 1-09 tablet by ity of tablet 00:00: mouth [place] 00 every 6 Medical (six) Branch hours as needed for Abdominal pain. ondansetron 2021-06 Yes [id number] 4mg Take 1 Univers 4 mg 1-09 tablet by ity of disintegrat 00:00: mouth [place] ing tablet 00 every 6 Medica l (six) Branch hours as needed for Nausea and Vomiting (N/V). dicyclomine 2021-06 Yes [id number] 20mg Take 1 Univers 20 mg 1-09 tablet by ity of tablet 00:00: mouth [place] 00 every 6 Medical (six) Branch hours as needed for Abdominal pain. ondansetron 2021-06 Yes [id number] 4mg Take 1 Univers 4 mg 1-09 tablet by ity of disintegrat 00:00: mouth [place] ing tablet 00 every 6 Medica l (six) Branch hours as needed for Nausea and Vomiting (N/V). dicyclomine 2021-06 Yes [id number] 20mg Take 1 Univers 20 mg 1-09 tablet by ity of tablet 00:00: mouth [place] 00 every 6 Medical (six) Branch hours as needed for Abdominal pain. ondansetron 2021-06 Yes [id number] 4mg Take 1 [facility] 4 mg 1-09 tablet by [facility]y of disintegrat 00:00: mouth [place] ing tablet 00 every 6 Medica l (six) Branch hours as needed for Nausea and Vomiting (N/V). dicyclomine 2021-06 Yes [id number] 20mg Take 1 [facility] 20 mg 1-09 tablet by ity of tablet 00:00: mouth [place] 00 every 6 Medical (six) Branch hours as needed for Abdominal pain. ondansetron 2021-06 Yes [id number] 4mg Take 1 [facility] 4 mg 1-09 tablet by ity of disintegrat 00:00: mouth [place] ing tablet 00 every 6 Medica l (six) Branch hours as needed for Nausea and Vomiting (N/V). dicyclomine 2021-06 Yes [id number] 20mg Take 1 [facility] 20 mg 1-09 tablet by ity of tablet 00:00: mouth [place] 00 every 6 Medical (six) Branch hours as needed for Abdominal pain. ondansetron 2021-06 Yes [id number] 4mg Take 1 [facility] 4 mg 1-09 tablet by ity of disintegrat 00:00: mouth [place] ing tablet 00 every 6 Medica l (six) Branch hours as needed for Nausea and Vomiting (N/V). dicyclomine 2021-06 Yes [id number] 20mg Take 1 [facility] 20 mg 1-09 tablet by ity of tablet 00:00: mouth [place] 00 every 6 Medical (six) Branch hours as needed for Abdominal pain. ondansetron 2021-06 Yes [id number] 4mg Take 1 [facility] 4 mg 1-09 tablet by ity of disintegrat 00:00: mouth [place] ing tablet 00 every 6 Medica l (six) Branch hours as needed for Nausea and Vomiting (N/V). dicyclomine 2021-06 Yes [id number] 20mg Take 1 [facility] 20 mg 1-09 tablet by ity of tablet 00:00: mouth [place] 00 every 6 Medical (six) Branch hours as needed for Abdominal pain. ondansetron 2021-06 Yes [id number] 4mg Take 1 [facility] 4 mg 1-09 tablet by ity of disintegrat 00:00: mouth [place] ing tablet 00 every 6 Medica l (six) Branch hours as needed for Nausea and Vomiting (N/V). dicyclomine 2021-06 Yes [id number] 20mg Take 1 [facility] 20 mg 1-09 tablet by ity of tablet 00:00: mouth [place] 00 every 6 Medical (six) Branch hours as needed for Abdominal pain. ondansetron 2021-06 Yes [id number] 4mg Take 1 [facility] 4 mg 1-09 tablet by ity of disintegrat 00:00: mouth [place] ing tablet 00 every 6 Medica l (six) Branch hours as needed for Nausea and Vomiting (N/V). dicyclomine 2021-06 Yes [id number] 20mg Take 1 [facility] 20 mg 1-09 tablet by ity of tablet 00:00: mouth [place] 00 every 6 Medical (six) Branch hours as needed for Abdominal pain. ondansetron 2021-06 Yes [id number] 4mg Take 1 [facility] 4 mg 1-09 tablet by ity of disintegrat 00:00: mouth [place] ing tablet 00 every 6 Medica l (six) Branch hours as needed for Nausea and Vomiting (N/V). dicyclomine 2021-06 Yes [id number] 20mg Take 1 [facility] 20 mg 1-09 tablet by ity of tablet 00:00: mouth [place] 00 every 6 Medical (six) Branch hours as needed for Abdominal pain. ondansetron 2021-06 Yes [id number] 4mg Take 1 [facility] 4 mg 1-09 tablet by ity of disintegrat 00:00: mouth [place] ing tablet 00 every 6 Medica l (six) Branch hours as needed for Nausea and Vomiting (N/V). dicyclomine 2021-06 Yes [id number] 20mg Take 1 [facility] 20 mg 1-09 tablet by ity of tablet 00:00: mouth [place] 00 every 6 Medical (six) Branch hours as needed for Abdominal pain. ondansetron 2021-06 Yes [id number] 4mg Take 1 [facility] 4 mg 1-09 tablet by ity of disintegrat 00:00: mouth [place] ing tablet 00 every 6 Medica l (six) Branch hours as needed for Nausea and Vomiting (N/V). dicyclomine 2021-06 Yes [id number] 20mg Take 1 [facility] 20 mg 1-09 tablet by ity of tablet 00:00: mouth [place] 00 every 6 Medical (six) Branch hours as needed for Abdominal pain. ondansetron 2021-06 Yes [id number] 4mg Take 1 [facility] 4 mg 1-09 tablet by ity of disintegrat 00:00: mouth [place] ing tablet 00 every 6 Medica l (six) Branch hours as needed for Nausea and Vomiting (N/V). dicyclomine 2021-06 Yes [id number] 20mg Take 1 [facility] 20 mg 1-09 tablet by ity of tablet 00:00: mouth [place] 00 every 6 Medical (six) Branch hours as needed for Abdominal pain. ondansetron 2021-06 Yes [id number] 4mg Take 1 [facility] 4 mg 1-09 tablet by ity of disintegrat 00:00: mouth [place] ing tablet 00 every 6 Medica l (six) Branch hours as needed for Nausea and Vomiting (N/V). dicyclomine 2021-06 Yes [id number] 20mg Take 1 [facility] 20 mg 1-09 tablet by ity of tablet 00:00: mouth [place] 00 every 6 Medical (six) Branch hours as needed for Abdominal pain. ondansetron 2021-06 Yes [id number] 4mg Take 1 [facility] 4 mg 1-09 tablet by ity of disintegrat 00:00: mouth [place] ing tablet 00 every 6 Medica l (six) Branch hours as needed for Nausea and Vomiting (N/V). dicyclomine 2021-06 Yes [id number] 20mg Take 1 [facility] 20 mg 1-09 tablet by ity of tablet 00:00: mouth [place] 00 every 6 Medical (six) Branch hours as needed for Abdominal pain. ondansetron 2021-06 Yes [id number] 4mg Take 1 [facility] 4 mg 1-09 tablet by ity of disintegrat 00:00: mouth [place] ing tablet 00 every 6 Medica l (six) Branch hours as needed for Nausea and Vomiting (N/V). dicyclomine 2021-06 Yes [id number] 20mg Take 1 [facility] 20 mg 1-09 tablet by ity of tablet 00:00: mouth [place] 00 every 6 Medical (six) Branch hours as needed for Abdominal pain. ondansetron 2021-06 Yes [id number] 4mg Take 1 [facility] 4 mg 1-09 tablet by ity of disintegrat 00:00: mouth [place] ing tablet 00 every 6 Medica l (six) Branch hours as needed for Nausea and Vomiting (N/V). dicyclomine 2021-06 Yes [id number] 20mg Take 1 [facility] 20 mg 1-09 tablet by ity of tablet 00:00: mouth [place] 00 every 6 Medical (six) Branch hours as needed for Abdominal pain. ondansetron 2021-06 Yes [id number] 4mg Take 1 [facility] 4 mg 1-09 tablet by ity of disintegrat 00:00: mouth [place] ing tablet 00 every 6 Medica l (six) Branch hours as needed for Nausea and Vomiting (N/V). dicyclomine 2021-06 Yes [id number] 20mg Take 1 [facility] 20 mg 1-09 tablet by ity of tablet 00:00: mouth [place] 00 every 6 Medical (six) Branch hours as needed for Abdominal pain. ondansetron 2021-06- No [id number] 4mg Take 1 [facility] 4 mg 1-09 05-02 tablet by it[facility] of disintegrat 00:00: 00:00 [place] tablet 00 :00 every 6 Medica l (six) Branch hours as needed for Nausea and Vomiting (N/V). dicyclomine 2021-06- No [id number] 20mg Take 1 [facility] 20 mg 1-09 05-02 tablet by ity of tablet 00:00: 00:00 mouth [place] 00 :00 every 6 Medical (six) Branch hours as needed for Abdominal pain. ondansetron 2021-06- No [id number] 4mg Take 1 [facility] 4 mg 1-09 05-02 tablet by ity of disintegrat 00:00: 00:00 [place] tablet 00 :00 every 6 Medica l (six) Branch hours as needed for Nausea and Vomiting (N/V). dicyclomine 2021-06- No [id number] 20mg Take 1 [facility] 20 mg 1-09 05-02 tablet by ity of tablet 00:00: 00:00 mouth [place] 00 :00 every 6 Medical (six) Branch hours as needed for Abdominal pain. doxycycline 2021- No [id number] 100mg Take 1 [facility] hyclate 100 02-28 [id number] tablet by ity of mg tablet 00:00: 04:59 mouth [place] 00 :00 the Medical morning Branch and 1 tablet in the evening. Do all this for 7 days. FENTanyl PF 2021- No 50ug 50 mcg, Un hien (SUBLIMAZE 10-24 Intramuscu it y of (PF)) 18:30: 17:40 lar, ONCE, [place] injection 00 :00 1 dose, On Medi kory 50 mcg [facility] Branch 10/24/21 at 1330, Routine methocarbam 2021- No 1000mg 1,000 mg, [facility] oL 10-24 Oral, ity of (ROBAXIN) 18:30: 17:39 ONCE, 1 [place] tablet [place] :[place] dose, On Medical 1,000 mg [facility] Branch 10/24/21 at 1330, DARIO ketorolac No 15mg 15 mg, Unive rs (TORADOL) 10-24 Intramuscu ity of injection 18:30: 17:40 lar, ONCE, [place] 15 mg 00 :00 1 dose, On Medical [place] [facility] 10/24/21 at 1330, Routine
[employer] approving Restricted medication : ROSLYN JAVIER gabapentin 2021- No 300mg 300 mg, Un hien (NEURONTIN) 10-24 Oral, ity of capsule 300 18:15: 17:39 ONCE, 1 [place] mg 00 :00 dose, On Medical [place] [facility] 10/24/21 at 1315, DARIO methocarbam 2021- No [id number] 750mg Take 1 [facility] oL 750 mg 10-24 tablet by ity of tablet 00:00: 04:59 mouth 4 [place] 00 :00 (four) Medical times Branch daily for 7 days. ibuprofen 2021- No [id number] 600mg Take 1 [facility] (IBU) 600 10-24 tablet by ity of mg tablet 00:00: [...] Fri Branch 10/18/21 at 0945, STAT methylPREDN No 40mg 40 mg, Uni vers ISolone sod 10-18 Intravenou i ty of succ 14:45: 13:46 s, ONCE, 1 [place] (SOLU-MEDRO 00 :00 dose, On Medi kory L (PF)) Fri Branch injection 10/18/21 at 40 mg 0945, STAT lidocaine 5 Yes [id number] Apply one [facility] % (700 4-22 patch to ity of mg/patch) 00:00: most [place] patch 00 painful Medical area up to Branch 12 hours a day, as needed for pain. PHARMACIST : dispense one box lidocaine 0 Yes [id number] Apply one [facility] % (700 4-22 patch to ity of mg/patch) 00:00: most [place] patch 00 painful Medical area up to Branch 12 hours a day, as needed for pain. PHARMACIST : dispense one box lidocaine 5 2021-0 Yes [id number] Apply one [facility] % (700 4-22 patch to ity of mg/patch) 00:00: most [place] patch 00 painful Medical area up to Branch 12 hours a day, as needed for pain. PHARMACIST : dispense one box lidocaine 5 2021-0 Yes [id number] Apply one [facility] % (700 4-22 patch to ity of mg/patch) 00:00: most [place] patch 00 painful Medical area up to Branch 12 hours a day, as needed for pain. PHARMACIST : dispense one box lidocaine 5 2021-0 Yes [id number] Apply one [facility] % (700 4-22 patch to ity of mg/patch) 00:00: most [place] patch 00 painful Medical area up to Branch 12 hours a day, as needed for pain. PHARMACIST : dispense one box lidocaine 5 2021-0 Yes [id number] Apply one [facility] % (700 4-22 patch to ity of mg/patch) 00:00: most [place] patch 00 painful Medical area up to Branch 12 hours a day, as needed for pain. PHARMACIST : dispense one box lidocaine 5 2021-0 Yes [id number] Apply one [facility] % (700 4-22 patch to ity of mg/patch) 00:00: most [place] patch 00 painful Medical area up to Branch 12 hours a day, as needed for pain. PHARMACIST : dispense one box lidocaine 5 2021-0 Yes [id number] Apply one [facility] % (700 4-22 patch to ity of mg/patch) 00:00: most [place] patch 00 painful Medical area up to Branch 12 hours a day, as needed for pain. PHARMACIST : dispense one box lidocaine 5 2021-0 Yes [id number] Apply one [facility] % (700 4-22 patch to ity of mg/patch) 00:00: most [place] patch 00 painful Medical area up to Branch 12 hours a day, as needed for pain. PHARMACIST : dispense one box lidocaine 5 2021-0 Yes [id number] Apply one [facility] % (700 4-22 patch to ity of mg/patch) 00:00: most [place] patch 00 painful Medical area up to Branch 12 hours a day, as needed for pain. PHARMACIST : dispense one box lidocaine 5 2021-0 Yes [id number] Apply one [facility] % (700 4-22 patch to ity of mg/patch) 00:00: most [place] patch 00 painful Medical area up to Branch 12 hours a day, as needed for pain. PHARMACIST : dispense one box lidocaine 5 2021-0 Yes [id number] Apply one [facility] % (700 4-22 patch to ity of mg/patch) 00:00: most [place] patch 00 painful Medical area up to Branch 12 hours a day, as needed for pain. PHARMACIST : dispense one box lidocaine 5 2022-0 Yes [id number] Apply one [facility] % (700 4-22 patch to ity of mg/patch) 00:00: most [place] patch 00 painful Medical area up to Branch 12 hours a day, as needed for pain. PHARMACIST : dispense one box lidocaine 5 2021-0 Yes [id number] Apply one [facility] % (700 4-22 patch to ity of mg/patch) 00:00: most [place] patch 00 painful Medical area up to Branch 12 hours a day, as needed for pain. PHARMACIST : dispense one box lidocaine 5 2021-0 Yes [id number] Apply one [facility] % (700 4-22 patch to ity of mg/patch) 00:00: most [place] patch 00 painful Medical area up to Branch 12 hours a day, as needed for pain. PHARMACIST : dispense one box lidocaine 5 2021-0 Yes [id number] Apply one [facility] % (700 4-22 patch to ity of mg/patch) 00:00: most [place] patch 00 painful Medical area up to Branch 12 hours a day, as needed for pain. PHARMACIST : dispense one box lidocaine 5 0 Yes [id number] Apply one [facility] % (700 4-22 patch to ity of mg/patch) 00:00: most [place] patch 00 painful Medical area up to Branch 12 hours a day, as needed for pain. PHARMACIST : dispense one box lidocaine 5 2021-0 Yes [id number] Apply one [facility] % (700 4-22 patch to ity of mg/patch) 00:00: most [place] patch 00 painful Medical area up to Branch 12 hours a day, as needed for pain. PHARMACIST : dispense one box lidocaine 5 2021-0 Yes [id number] Apply one [facility] % (700 4-22 patch to ity of mg/patch) 00:00: most [place] patch 00 painful Medical area up to Branch 12 hours a day, as needed for pain. PHARMACIST : dispense one box lidocaine 5 2021-0 Yes [id number] Apply one [facility] % (700 4-22 patch to ity of mg/patch) 00:00: most [place] patch 00 painful Medical area up to Branch 12 hours a day, as needed for pain. PHARMACIST : dispense one box lidocaine 5 2021-0 Yes [id number] Apply one [facility] % (700 4-22 patch to ity of mg/patch) 00:00: most [place] patch 00 painful Medical area up to Branch 12 hours a day, as needed for pain. PHARMACIST : dispense one box lidocaine 5 2021-0 Yes [id number] Apply one [facility] % (700 4-22 patch to ity of mg/patch) 00:00: most [place] patch 00 painful Medical area up to Branch 12 hours a day, as needed for pain. PHARMACIST : dispense one box lidocaine 5 2021-0 Yes [id number] Apply one [facility] % (700 4-22 patch to ity of mg/patch) 00:00: most [place] patch 00 painful Medical area up to Branch 12 hours a day, as needed for pain. PHARMACIST : dispense one box lidocaine 5 2021-0 Yes [id number] Apply one [facility] % (700 4-22 patch to ity of mg/patch) 00:00: most [place] patch 00 painful Medical area up to Branch 12 hours a day, as needed for pain. PHARMACIST : dispense one box lidocaine 5 2021-0 Yes [id number] Apply one [facility] % (700 4-22 patch to ity of mg/patch) 00:00: most [place] patch 00 painful Medical area up to Branch 12 hours a day, as needed for pain. PHARMACIST : dispense one box lidocaine 5 2021-0 Yes [id number] Apply one [facility] % (700 4-22 patch to ity of mg/patch) 00:00: most [place] patch 00 painful Medical area up to Branch 12 hours a day, as needed for pain. PHARMACIST : dispense one box lidocaine 5 2021-0 Yes [id number] Apply one [facility] % (700 4-22 patch to ity of mg/patch) 00:00: most [place] patch 00 painful Medical area up to Branch 12 hours a day, as needed for pain. PHARMACIST : dispense one box lidocaine 5 2021-0 Yes [id number] Apply one [facility] % (700 4-22 patch to ity of mg/patch) 00:00: most [place] patch 00 painful Medical area up to Branch 12 hours a day, as needed for pain. PHARMACIST : dispense one box lidocaine 5 2021-0 Yes [id number] Apply one [facility] % (700 4-22 patch to ity of mg/patch) 00:00: most [place] patch 00 painful Medical area up to Branch 12 hours a day, as needed for pain. PHARMACIST : dispense one box lidocaine 5 2021-0 Yes [id number] Apply one [facility] % (700 4-22 patch to ity of mg/patch) 00:00: most [place] patch 00 painful Medical area up to Branch 12 hours a day, as needed for pain. PHARMACIST : dispense one box lidocaine 5 Yes [id number] Apply one [facility] % (700 4-22 patch to ity of mg/patch) 00:00: most [place] patch 00 painful Medical area up to Branch 12 hours a day, as needed for pain. PHARMACIST : dispense one box predniSONE 2- No [id number] 40mg Take 2 [facility] 20 mg 4-22 04-30 tablets by ity of tablet 00:00: 04:59 mouth [place] 00 :00 daily for Medical 7 days. Branch predniSONE 2021- No [id number] 40mg Take 2 [facility] 20 mg 4-22 04-30 tablets by ity of tablet 00:00: 04:59 mouth [place] 00 :00 daily for Medical 7 days. Branch cyclobenzap 2020-06 Yes [id number] 5mg Take 1 [facility] rine 5 mg 0-07 tablet by ity o f tablet 00:00: mouth 3 [place] 00 (three) Medical times Branch daily as needed for Muscle Spasms. cyclobenzap 2020-06 Yes [id number] 5mg Take 1 [facility] rine 5 mg 0-07 tablet by ity o f tablet 00:00: mouth 3 [place] 00 (three) Medical times Branch daily as needed for Muscle Spasms. cyclobenzap 2020-06 Yes [id number] 5mg Take 1 [facility] rine 5 mg 0-07 tablet by ity o f tablet 00:00: mouth 3 [place] 00 (three) Medical times Branch daily as needed for Muscle Spasms. ibuprofen 2020-06 Yes [id number] 600mg Take 1 [facility] (IBU) 600 0-07 tablet by ity o f mg tablet 00:00: mouth [place] 00 every 6 Medical (six) Branch hours as needed for Pain (scale 4-6). cyclobenzap 2020-06 Yes [id number] 5mg Take 1 [facility] rine 5 mg 0-07 tablet by ity o f tablet 00:00: mouth 3 [place] 00 (three) Medical times Branch daily as needed for Muscle Spasms. ibuprofen 2020-06 Yes [id number] 600mg Take 1 [facility] (IBU) 600 0-07 tablet by ity o f mg tablet 00:00: mouth [place] 00 every 6 Medical (six) Branch hours as needed for Pain (scale 4-6). cyclobenzap 2020-06 Yes [id number] 5mg Take 1 [facility] rine 5 mg 0-07 tablet by ity o f tablet 00:00: mouth 3 [place] 00 (three) Medical times Branch daily as needed for Muscle Spasms. ibuprofen 2020-06 Yes [id number] 600mg Take 1 [facility] (IBU) 600 0-07 tablet by ity o f mg tablet 00:00: mouth [place] 00 every 6 Medical (six) Branch hours as needed for Pain (scale 4-6). cyclobenzap 2020-06 Yes [id number] 5mg Take 1 [facility] rine 5 mg 0-07 tablet by ity o f tablet 00:00: mouth 3 00 (three) Medical times Branch daily as needed for Muscle Spasms. ibuprofen 2020-06 Yes [id number] 600mg Take 1 [facility] (IBU) 600 0-07 tablet by ity o f mg tablet 00:00: mouth [place] 00 every 6 Medical (six) Branch hours as needed for Pain (scale 4-6). cyclobenzap 2020-06 Yes [id number] 5mg Take 1 [facility] rine 5 mg 0-07 tablet by ity o f tablet 00:00: mouth 3 00 (three) Medical times Branch daily as needed for Muscle Spasms. ibuprofen 2020-06 Yes [id number] 600mg Take 1 [facility] (IBU) 600 0-07 tablet by ity o f mg tablet 00:00: mouth [place] 00 every 6 Medical (six) Branch hours as needed for Pain (scale 4-6). cyclobenzap 2020-06 Yes [id number] 5mg Take 1 [facility] rine 5 mg 0-07 tablet by ity o f tablet 00:00: mouth 3 00 (three) Medical times Branch daily as needed for Muscle Spasms. cyclobenzap 2020-06 Yes [id number] 5mg Take 1 [facility] rine 5 mg 0-07 tablet by ity o f tablet 00:00: mouth 3 [place] 00 (three) Medical times Branch daily as needed for Muscle Spasms. cyclobenzap 2020-06 Yes [id number] 5mg Take 1 [facility] rine 5 mg 0-07 tablet by ity o f tablet 00:00: mouth 3 [place] 00 (three) Medical times Branch daily as needed for Muscle Spasms. cyclobenzap 2020-06 Yes [id number] 5mg Take 1 [facility] rine 5 mg 0-07 tablet by ity o f tablet 00:00: mouth 3 00 (three) Medical times Branch daily as needed for Muscle Spasms. cyclobenzap 2020-06 Yes [id number] 5mg Take 1 [facility] rine 5 mg 0-07 tablet by ity o f tablet 00:00: mouth 3 00 (three) Medical times Branch daily as needed for Muscle Spasms. cyclobenzap 2020-06 Yes [id number] 5mg Take 1 [facility] rine 5 mg 0-07 tablet by ity o f tablet 00:00: mouth 3 00 (three) Medical times Branch daily as needed for Muscle Spasms. cyclobenzap 2020-06 Yes [id number] 5mg Take 1 [facility] rine 5 mg 0-07 tablet by ity o f tablet 00:00: mouth 3 (three) Medical times Branch daily as needed for Muscle Spasms. cyclobenzap 2020-06 Yes [id number] 5mg Take 1 [facility] rine 5 mg 0-07 tablet by ity o f tablet 00:00: mouth 3 00 (three) Medical times Branch daily as needed for Muscle Spasms. cyclobenzap 2020-06 Yes [id number] 5mg Take 1 [facility] rine 5 mg 0-07 tablet by ity o f tablet 00:00: mouth 3 00 (three) Medical times Branch daily as needed for Muscle Spasms. cyclobenzap 2020-06 Yes [id number] 5mg Take 1 [facility] rine 5 mg 0-07 tablet by ity o f tablet 00:00: mouth 3 (three) Medical times Branch daily as needed for Muscle Spasms. cyclobenzap 2020-06 Yes [id number] 5mg Take 1 [facility] rine 5 mg 0-07 tablet by ity o f tablet 00:00: mouth 3 00 (three) Medical times Branch daily as needed for Muscle Spasms. cyclobenzap 2020-06 Yes [id number] 5mg Take 1 [facility] rine 5 mg 0-07 tablet by ity o f tablet 00:00: mouth 3 00 (three) Medical times Branch daily as needed for Muscle Spasms. cyclobenzap 2020-06 Yes [id number] 5mg Take 1 [facility] rine 5 mg 0-07 tablet by ity o f tablet 00:00: mouth 3 00 (three) Medical times Branch daily as needed for Muscle Spasms. cyclobenzap 2020-06 Yes [id number] 5mg Take 1 [facility] rine 5 mg 0-07 tablet by ity o f tablet 00:00: mouth 3 00 (three) Medical times Branch daily as needed for Muscle Spasms. cyclobenzap 2020-06 Yes [id number] 5mg Take 1 [facility] rine 5 mg 0-07 tablet by ity o f tablet 00:00: mouth 3 00 (three) Medical times Branch daily as needed for Muscle Spasms. cyclobenzap 2020-06 Yes [id number] 5mg Take 1 [facility] rine 5 mg 0-07 tablet by ity o f tablet 00:00: mouth 3 (three) Medical times Branch daily as needed for Muscle Spasms. cyclobenzap 2020-06 Yes [id number] 5mg Take 1 [facility] rine 5 mg 0-07 tablet by ity o f tablet 00:00: mouth 3 (three) Medical times Branch daily as needed for Muscle Spasms. cyclobenzap 2020-06 Yes [id number] 5mg Take 1 [facility] rine 5 mg 0-07 tablet by ity o f tablet 00:00: mouth 3 00 (three) Medical times Branch daily as needed for Muscle Spasms. cyclobenzap 2020-06 Yes [id number] 5mg Take 1 [facility] rine 5 mg 0-07 tablet by ity o f tablet 00:00: mouth 3 (three) Medical times Branch daily as needed for Muscle Spasms. cyclobenzap 2020-06 Yes [id number] 5mg Take 1 [facility] rine 5 mg 0-07 tablet by ity o f tablet 00:00: mouth 3 00 (three) Medical times Branch daily as needed for Muscle Spasms. cyclobenzap 2020-06 Yes [id number] 5mg Take 1 [facility] rine 5 mg 0-07 tablet by ity o f tablet 00:00: mouth 3 00 (three) Medical times Branch daily as needed for Muscle Spasms. cyclobenzap 2020-06 Yes [id number] 5mg Take 1 [facility] rine 5 mg 0-07 tablet by ity o f tablet 00:00: mouth 3 [place] 00 (three) Medical times Branch daily as needed for Muscle Spasms. cyclobenzap 2020-06 Yes [id number] 5mg Take 1 [facility] rine 5 mg 0-07 tablet by ity o f tablet 00:00: mouth 3 [place] 00 (three) Medical times Branch daily as needed for Muscle Spasms. cyclobenzap 2020-06 Yes [id number] 5mg Take 1 [facility] rine 5 mg 0-07 tablet by ity o f tablet 00:00: mouth 3 00 (three) Medical times Branch daily as needed for Muscle Spasms. cyclobenzap 2020-06 Yes [id number] 5mg Take 1 [facility] rine 5 mg 0-07 tablet by ity o f tablet 00:00: mouth 3 [place] 00 (three) Medical times Branch daily as needed for Muscle Spasms. cyclobenzap 2020-06 Yes [id number] 5mg Take 1 [facility] rine 5 mg 0-07 tablet by ity o f tablet 00:00: mouth 3 00 (three) Medical times Branch daily as needed for Muscle Spasms. cyclobenzap 2020-06 Yes [id number] 5mg Take 1 [facility] rine 5 mg 0-07 tablet by ity o f tablet 00:00: mouth 3 00 (three) Medical times Branch daily as needed for Muscle Spasms. cyclobenzap 2020-06 Yes [id number] 5mg Take 1 [facility] rine 5 mg 0-07 tablet by ity o f tablet 00:00: mouth 3 00 (three) Medical times Branch daily as needed for Muscle Spasms. ibuprofen 2020-06- No [id number] 600mg Take 1 [facility] (IBU) 600 0-07 [...] 52 every Medical tablet morning. Branch levothyroxi 2020- Yes 125ug Take 125 U nivers ne [...] Medical tablet morning. Branch butalbital- 2019-0 Yes [id number] 1{tbl} Take 1 [facility] acetaminoph 9-29 tablet by ity of en-caff 00:00: mouth [place] 50-325-40 00 every 6 Medical mg tablet (six) Branch hours as needed for Pain (scale 7-10). butalbital- 2019-0 Yes [id number] 1{tbl} Take 1 [facility] acetaminoph 9-29 tablet by ity of en-caff 00:00: mouth [place] 50-325-40 00 every 6 Medical mg tablet (six) Branch hours as needed for Pain (scale 7-10). butalbital- 2020-0 Yes [id number] 1{tbl} Take 1 [facility] acetaminoph 9-29 tablet by ity of en-caff 00:00: mouth [place] 50-325-40 00 every 6 Medical mg tablet (six) Branch hours as needed for Pain (scale 7-10). ondansetron 2020-0 Yes [id number] 4mg Take 1 [facility] (ZOFRAN 9-29 tablet by ity of ODT) 4 mg 00:00: mouth [place] disintegrat 00 every 8 Medic al ing tablet (eight) Branch hours as needed for Nausea and Vomiting (N/V). butalbital- 2020-0 Yes [id number] 1{tbl} Take 1 [facility] acetaminoph 9-29 tablet by ity of en-caff 00:00: mouth [place] 50-325-40 00 every 6 Medical mg tablet (six) Branch hours as needed for Pain (scale 7-10). ondansetron 2020-0 Yes [id number] 4mg Take 1 [facility] (ZOFRAN 9-29 tablet by ity of ODT) 4 mg 00:00: mouth [place] disintegrat 00 every 8 Medic al ing tablet (eight) Branch hours as needed for Nausea and Vomiting (N/V). butalbital- 2020-0 Yes [id number] 1{tbl} Take 1 [facility] acetaminoph 9-29 tablet by ity of en-caff 00:00: mouth [place] 50-325-40 00 every 6 Medical mg tablet (six) Branch hours as needed for Pain (scale 7-10). ondansetron 2020-0 Yes [id number] 4mg Take 1 [facility] (ZOFRAN 9-29 tablet by ity of ODT) 4 mg 00:00: mouth [place] disintegrat 00 every 8 Medic al ing tablet (eight) Branch hours as needed for Nausea and Vomiting (N/V). butalbital- 2020-0 Yes [id number] 1{tbl} Take 1 [facility] acetaminoph 9-29 tablet by ity of en-caff 00:00: mouth [place] 50-325-40 00 every 6 Medical mg tablet (six) Branch hours as needed for Pain (scale 7-10). ondansetron 2020-0 Yes [id number] 4mg Take 1 [facility] (ZOFRAN 9-29 tablet by ity of ODT) 4 mg 00:00: mouth [place] disintegrat 00 every 8 Medic al ing tablet (eight) Branch hours as needed for Nausea and Vomiting (N/V). butalbital- 2020-0 Yes [id number] 1{tbl} Take 1 [facility] acetaminoph 9-29 tablet by ity of en-caff 00:00: mouth [place] 50-325-40 00 every 6 Medical mg tablet (six) Branch hours as needed for Pain (scale 7-10). ondansetron 2020-0 Yes [id number] 4mg Take 1 [facility] (ZOFRAN 9-29 tablet by ity of ODT) 4 mg 00:00: mouth [place] disintegrat 00 every 8 Medic al ing tablet (eight) Branch hours as needed for Nausea and Vomiting (N/V). butalbital- 2020-0 Yes [id number] 1{tbl} Take 1 [facility] acetaminoph 9-29 tablet by ity of en-caff 00:00: mouth [place] 50-325-40 00 every 6 Medical mg tablet (six) Branch hours as needed for Pain (scale 7-10). ondansetron 2020-0 Yes [id number] 4mg Take 1 [facility] (ZOFRAN 9-29 tablet by ity of ODT) 4 mg 00:00: mouth [place] disintegrat 00 every 8 Medic al ing tablet (eight) Branch hours as needed for Nausea and Vomiting (N/V). butalbital- 2020-0 Yes [id number] 1{tbl} Take 1 [facility] acetaminoph 9-29 tablet by ity of en-caff 00:00: mouth [place] 50-325-40 00 every 6 Medical mg tablet (six) Branch hours as needed for Pain (scale 7-10). ondansetron 2020-0 Yes [id number] 4mg Take 1 [facility] (ZOFRAN 9-29 tablet by ity of ODT) 4 mg 00:00: mouth [place] disintegrat 00 every 8 Medic al ing tablet (eight) Branch hours as needed for Nausea and Vomiting (N/V). butalbital- 2020-0 Yes [id number] 1{tbl} Take 1 [facility] acetaminoph 9-29 tablet by ity of en-caff 00:00: mouth [place] 50-325-40 00 every 6 Medical mg tablet (six) Branch hours as needed for Pain (scale 7-10). butalbital- 2020-0 Yes [id number] 1{tbl} Take 1 [facility] acetaminoph 9-29 tablet by ity of en-caff 00:00: mouth [place] 50-325-40 00 every 6 Medical mg tablet (six) Branch hours as needed for Pain (scale 7-10). butalbital- 2020-0 Yes [id number] 1{tbl} Take 1 [facility] acetaminoph 9-29 tablet by ity of en-caff 00:00: mouth [place] 50-325-40 00 every 6 Medical mg tablet (six) Branch hours as needed for Pain (scale 7-10). butalbital- 2020-0 Yes [id number] 1{tbl} Take 1 [facility] acetaminoph 9-29 tablet by ity of en-caff 00:00: mouth [place] 50-325-40 00 every 6 Medical mg tablet (six) Branch hours as needed for Pain (scale 7-10). butalbital- 2020-0 Yes [id number] 1{tbl} Take 1 [facility] acetaminoph 9-29 tablet by ity of en-caff 00:00: mouth [place] 50-325-40 00 every 6 Medical mg tablet (six) Branch hours as needed for Pain (scale 7-10). butalbital- 2020-0 Yes [id number] 1{tbl} Take 1 [facility] acetaminoph 9-29 tablet by ity of en-caff 00:00: mouth [place] 50-325-40 00 every 6 Medical mg tablet (six) Branch hours as needed for Pain (scale 7-10). butalbital- 2020-0 Yes [id number] 1{tbl} Take 1 [facility] acetaminoph 9-29 tablet by ity of en-caff 00:00: mouth [place] 50-325-40 00 every 6 Medical mg tablet (six) Branch hours as needed for Pain (scale 7-10). butalbital- 2020-0 Yes [id number] 1{tbl} Take 1 [facility] acetaminoph 9-29 tablet by ity of en-caff 00:00: mouth [place] 50-325-40 00 every 6 Medical mg tablet (six) Branch hours as needed for Pain (scale 7-10). butalbital- 2020-0 Yes [id number] 1{tbl} Take 1 [facility] acetaminoph 9-29 tablet by ity of en-caff 00:00: mouth [place] 50-325-40 00 every 6 Medical mg tablet (six) Branch hours as needed for Pain (scale 7-10). butalbital- 2020-0 Yes [id number] 1{tbl} Take 1 [facility] acetaminoph 9-29 tablet by ity of en-caff 00:00: mouth [place] 50-325-40 00 every 6 Medical mg tablet (six) Branch hours as needed for Pain (scale 7-10). butalbital- 2020-0 Yes [id number] 1{tbl} Take 1 [facility] acetaminoph 9-29 tablet by ity of en-caff 00:00: mouth [place] 50-325-40 00 every 6 Medical mg tablet (six) Branch hours as needed for Pain (scale 7-10). butalbital- 2020-0 Yes [id number] 1{tbl} Take 1 [facility] acetaminoph 9-29 tablet by ity of en-caff 00:00: mouth [place] 50-325-40 00 every 6 Medical mg tablet (six) Branch hours as needed for Pain (scale 7-10). butalbital- 2020-0 Yes [id number] 1{tbl} Take 1 [facility] acetaminoph 9-29 tablet by ity of en-caff 00:00: mouth [place] 50-325-40 00 every 6 Medical mg tablet (six) Branch hours as needed for Pain (scale 7-10). butalbital- 2020-0 Yes [id number] 1{tbl} Take 1 [facility] acetaminoph 9-29 tablet by ity of en-caff 00:00: mouth [place] 50-325-40 00 every 6 Medical mg tablet (six) Branch hours as needed for Pain (scale 7-10). butalbital- 2020-0 Yes [id number] 1{tbl} Take 1 [facility] acetaminoph 9-29 tablet by ity of en-caff 00:00: mouth [place] 50-325-40 00 every 6 Medical mg tablet (six) Branch hours as needed for Pain (scale 7-10). butalbital- 2020-0 Yes [id number] 1{tbl} Take 1 [facility] acetaminoph 9-29 tablet by ity of en-caff 00:00: mouth [place] 50-325-40 00 every 6 Medical mg tablet (six) Branch hours as needed for Pain (scale 7-10). butalbital- 2020-0 Yes [id number] 1{tbl} Take 1 [facility] acetaminoph 9-29 tablet by ity of en-caff 00:00: mouth [place] 50-325-40 00 every 6 Medical mg tablet (six) Branch hours as needed for Pain (scale 7-10). butalbital- 2020-0 Yes [id number] 1{tbl} Take 1 [facility] acetaminoph 9-29 tablet by ity of en-caff 00:00: mouth [place] 50-325-40 00 every 6 Medical mg tablet (six) Branch hours as needed for Pain (scale 7-10). butalbital- 2020-0 Yes [id number] 1{tbl} Take 1 [facility] acetaminoph 9-29 tablet by ity of en-caff 00:00: mouth [place] 50-325-40 00 every 6 Medical mg tablet (six) Branch hours as needed for Pain (scale 7-10). butalbital- 2020-0 Yes [id number] 1{tbl} Take 1 [facility] acetaminoph 9-29 tablet by ity of en-caff 00:00: mouth [place] 50-325-40 00 every 6 Medical mg tablet (six) Branch hours as needed for Pain (scale 7-10). butalbital- 2020-0 Yes [id number] 1{tbl} Take 1 [facility] acetaminoph 9-29 tablet by ity of en-caff 00:00: mouth [place] 50-325-40 00 every 6 Medical mg tablet (six) Branch hours as needed for Pain (scale 7-10). butalbital- 2020-0 Yes [id number] 1{tbl} Take 1 [facility] acetaminoph 9-29 tablet by ity of en-caff 00:00: mouth [place] 50-325-40 00 every 6 Medical mg tablet (six) Branch hours as needed for Pain (scale 7-10). butalbital- 2020-0 Yes [id number] 1{tbl} Take 1 [facility] acetaminoph 9-29 tablet by ity of en-caff 00:00: mouth [place] 50-325-40 00 every 6 Medical mg tablet (six) Branch hours as needed for Pain (scale 7-10). butalbital- 2020-0 Yes [id number] 1{tbl} Take 1 [facility] acetaminoph 9-29 tablet by ity of en-caff 00:00: mouth [place] 50-325-40 00 every 6 Medical mg tablet (six) Branch hours as needed for Pain (scale 7-10). butalbital- 2020-0 Yes [id number] 1{tbl} Take 1 [facility] acetaminoph 9-29 tablet by ity of en-caff 00:00: mouth [place] 50-325-40 00 every 6 Medical mg tablet (six) Branch hours as needed for Pain (scale 7-10). butalbital- 2020-0 Yes [id number] 1{tbl} Take 1 [facility] acetaminoph 9-29 tablet by ity of en-caff 00:00: mouth [place] 50-325-40 00 every 6 Medical mg tablet (six) Branch hours as needed for Pain (scale 7-10). ondansetron 2019-2021- No [id number] 4mg Take 1 [facility] (ZOFRAN 9-29 11-09 tablet by ity of ODT) 4 mg 00:00: 00:00 mouth [place] disintegrat 00 :00 every 8 Medic al ing tablet (eight) Branch hours as needed for Nausea and Vomiting (N/V). zolpidem 10 2019-0 Yes 5mg Take 5 mg U nivers mg tablet 9-25 by mouth ity of 14:22: at bedtime [place] [address] as needed Medical for Branch Insomnia. zolpidem 10 2019-0 Yes 5mg Take 5 mg U nivers mg tablet 9-25 by mouth ity of 14:22: at bedtime [place] 38 as needed Medical for Branch Insomnia. [...] ity of vitamin 14:22: as [place] B-12, (B- 38 directed Medi kory COMPLIANCE) once every [...] 1,000 mcg ity of vitamin 14:22: as [place] B-12, ( 38 directed Medi kory COMPLIANCE) once every Br anch 1,000 month. mcg/mL Taken the injection beginning of the month zolpidem 10 2020-0 Yes 5mg Take 5 mg U nivers mg tablet 9-25 by mouth ity of 14:22: at bedtime [place] [address] as needed Medical for Branch Insomnia. cyanocobala 2020-0 Yes 1000ug Inject Un hien min, 9-25 1,000 mcg ity of vitamin 14:22: as [place] B-12, ( 38 directed Medi kory COMPLIANCE) once every Br anch 1,000 month. mcg/mL Taken the injection beginning of the month zolpidem 10 2020-0 Yes 5mg Take 5 mg U nivers mg tablet 9-25 by mouth ity of 14:22: at bedtime [place] [address] as needed Medical for Branch Insomnia. cyanocobala 2020-0 Yes 1000ug Inject Un hien min, 9-25 1,000 mcg ity of vitamin 14:22: as [place] B-12, ( 38 directed Medi kory COMPLIANCE) once every Br anch 1,000 month. mcg/mL Taken the injection beginning of the month zolpidem 10 2020-0 Yes 5mg Take 5 mg U nivers mg tablet 9-25 by mouth ity of 14:22: at bedtime [place] 38 as needed Medical for Branch Insomnia. zolpidem 10 2020-0 Yes 5mg Take 5 mg U nivers mg tablet 9-25 by mouth ity of 14:22: at bedtime [place] 38 as needed Medical for Branch Insomnia. zolpidem 10 2020-0 Yes 5mg Take 5 mg U nivers mg tablet 9-25 by mouth ity of 14:22: at bedtime [place] 38 as needed Medical for Branch Insomnia. [...] by mouth ity of 14:22: at bedtime [place] 38 as needed Medical for Branch Insomnia. zolpidem 10 2020-0 Yes 5mg Take 5 mg U nivers mg tablet 9-25 by mouth ity of 14:22: at bedtime [place] 38 as needed Medical for Branch Insomnia. zolpidem 10 2020-0 Yes 5mg Take 5 mg U nivers mg tablet 9-25 by mouth ity of 14:22: at bedtime [place] 38 as needed Medical for Branch Insomnia. zolpidem 10 2020-0 Yes 5mg Take 5 mg U nivers mg tablet 9-25 by mouth ity of 14:22: at bedtime [place] 38 as needed Medical for Branch Insomnia. zolpidem 10 2020-0 Yes 5mg Take 5 mg U nivers mg tablet 9-25 by mouth ity of 14:22: at bedtime [place] 38 as needed Medical for Branch Insomnia. zolpidem 10 2020-0 Yes 5mg Take 5 mg U nivers mg tablet 9-25 by mouth ity of 14:22: at bedtime [place] 38 as needed Medical for Branch Insomnia. phenazopyri 2020-0 Yes [id number] 200mg Take 2 [facility] dine 9-17 tablets by ity of (PYRIDIUM) 00:00: mouth [place] 00 (three) Medical tablet times Branch daily. phenazopyri 2020-0 Yes [id number] 200mg Take 2 [facility] dine 9-17 tablets by ity of (PYRIDIUM) 00:00: mouth [place] 00 (three) Medical tablet times Branch daily. phenazopyri 2020-0 Yes [id number] 200mg Take 2 [facility] dine 9-17 tablets by ity of (PYRIDIUM) 00:00: mouth [place] 00 (three) Medical tablet times Branch daily. phenazopyri 2020-0 Yes [id number] 200mg Take 2 [facility] dine 9-17 tablets by ity of (PYRIDIUM) 00:00: mouth [place] 00 (three) Medical tablet times Branch daily. phenazopyri 2020-0 Yes [id number] 200mg Take 2 [facility] dine 9-17 tablets by ity of (PYRIDIUM) 00:00: mouth [place] mg 00 (three) Medical tablet times Branch daily. phenazopyri 2020-0 Yes [id number] 200mg Take 2 [facility] dine 9-17 tablets by ity of (PYRIDIUM) 00:00: mouth [place] 100 mg 00 (three) Medical tablet times Branch daily. phenazopyri 2020-0 Yes [id number] 200mg Take 2 [facility] dine 9-17 tablets by ity of (PYRIDIUM) 00:00: mouth [place] mg 00 (three) Medical tablet times Branch daily. phenazopyri 2020-0 Yes [id number] 200mg Take 2 [facility] dine 9-17 tablets by ity of (PYRIDIUM) 00:00: mouth [place] 100 mg 00 (three) Medical tablet times Branch daily. phenazopyri 2020-0 Yes [id number] 200mg Take 2 [facility] dine 9-17 tablets by ity of (PYRIDIUM) 00:00: mouth [place] mg 00 (three) Medical tablet times Branch daily. phenazopyri 2020-0 Yes [id number] 200mg Take 2 [facility] dine 9-17 tablets by ity of (PYRIDIUM) 00:00: mouth [place] mg 00 (three) Medical tablet times Branch daily. phenazopyri 2020-0 Yes [id number] 200mg Take 2 [facility] dine 9-17 tablets by ity of (PYRIDIUM) 00:00: mouth [place] mg 00 (three) Medical tablet times Branch daily. phenazopyri 2020-0 Yes [id number] 200mg Take 2 [facility] dine 9-17 tablets [...] times Branch daily. phenazopyri 2020-0 2022- No 200mg Take 2 [facility] dine 9-17 05-02 tablets by ity of (PYRIDIUM) 00:00: 00:00 mouth [place] 100 mg 00 :00 (three) Medical tablet times Branch daily. phenazopyri 2020-0 2022- No 200mg Take 2 [facility] dine 9-17 05-02 tablets by ity of (PYRIDIUM) 00:00: 00:00 mouth 3 [place] 100 mg 00 :00 (three) Medical tablet times Branch daily. conjugated 2020-0 Yes [id number] 1g Insert 1 g [facility] estrogens 9-14 into ity of 0.625 00:00: vagina [place] mg/gram 00 SEE-INSTRU Medica l vaginal CTIONS. Branch cream Apply small amount to vaginal opening and labia twice weekly conjugated 2020-0 Yes [id number] 1g Insert 1 g [facility] estrogens 9-14 into ity of 0.625 00:00: vagina [place] mg/gram 00 SEE-INSTRU Medica l vaginal CTIONS. Branch cream Apply small amount to vaginal opening and labia twice weekly conjugated 2020-0 Yes [id number] 1g Insert 1 g [facility] estrogens 9-14 into ity of 0.625 00:00: vagina [place] mg/gram 00 SEE-INSTRU Medica l vaginal CTIONS. Branch cream Apply small amount to vaginal opening and labia twice weekly conjugated 2020-0 Yes [id number] 1g Insert 1 g [facility] estrogens 9-14 into ity of 0.625 00:00: vagina [place] mg/gram 00 SEE-INSTRU Medica l vaginal CTIONS. Branch cream Apply small amount to vaginal opening and labia twice weekly conjugated 2020-0 Yes [id number] 1g Insert 1 g [facility] estrogens 9-14 into ity of 0.625 00:00: vagina [place] mg/gram 00 SEE-INSTRU Medica l vaginal CTIONS. Branch cream Apply small amount to vaginal opening and labia twice weekly conjugated 2020-0 Yes [id number] 1g Insert 1 g [facility] estrogens 9-14 into ity of 0.625 00:00: vagina [place] mg/gram 00 SEE-INSTRU Medica l vaginal CTIONS. Branch cream Apply small amount to vaginal opening and labia twice weekly conjugated 2020-0 Yes [id number] 1g Insert 1 g [facility] estrogens 9-14 into ity of 0.625 00:00: vagina [place] mg/gram 00 SEE-INSTRU Medica l vaginal CTIONS. Branch cream Apply small amount to vaginal opening and labia twice weekly conjugated 2020-0 Yes [id number] 1g Insert 1 g [facility] estrogens 9-14 into ity of 0.625 00:00: vagina [place] mg/gram 00 SEE-INSTRU Medica l vaginal CTIONS. Branch cream Apply small amount to vaginal opening and labia twice weekly conjugated 2020-0 Yes [id number] 1g Insert 1 g [facility] estrogens 9-14 into ity of 0.625 00:00: vagina [place] mg/gram 00 SEE-INSTRU Medica l vaginal CTIONS. Branch cream Apply small amount to vaginal opening and labia twice weekly conjugated 2020-0 Yes [id number] 1g Insert 1 g [facility] estrogens 9-14 into ity of 0.625 00:00: vagina [place] mg/gram 00 SEE-INSTRU Medica l vaginal CTIONS. Branch cream Apply small amount to vaginal opening and labia twice weekly conjugated 2020-0 Yes [id number] 1g Insert 1 g [facility] estrogens 9-14 into ity of 0.625 00:00: vagina [place] mg/gram 00 SEE-INSTRU Medica l vaginal CTIONS. Branch cream Apply small amount to vaginal opening and labia twice weekly conjugated 2020-0 Yes [id number] 1g Insert 1 g [facility] estrogens 9-14 into ity of 0.625 00:00: vagina [place] mg/gram 00 SEE-INSTRU Medica l vaginal CTIONS. Branch cream Apply small amount to vaginal opening and labia twice weekly conjugated 2020-0 Yes [id number] 1g Insert 1 g [facility] estrogens 9-14 into ity of 0.625 00:00: vagina [place] mg/gram 00 SEE-INSTRU Medica l vaginal CTIONS. Branch cream Apply small amount to vaginal opening and labia twice weekly conjugated 2020-0 Yes [id number] 1g Insert 1 g [facility] estrogens 9-14 into ity of 0.625 00:00: vagina [place] mg/gram 00 SEE-INSTRU Medica l vaginal CTIONS. Branch cream Apply small amount to vaginal opening and labia twice weekly conjugated 2020-0 Yes [id number] 1g Insert 1 g [facility] estrogens 9-14 into ity of 0.625 00:00: vagina [place] mg/gram 00 SEE-INSTRU Medica l vaginal CTIONS. Branch cream Apply small amount to vaginal opening and labia twice weekly conjugated 2020-0 Yes [id number] 1g Insert 1 g [facility] estrogens 9-14 into ity of 0.625 00:00: vagina [place] mg/gram 00 SEE-INSTRU Medica l vaginal CTIONS. Branch cream Apply small amount to vaginal opening and labia twice weekly conjugated 2020-0 Yes [id number] 1g Insert 1 g [facility] estrogens 9-14 into ity of 0.625 00:00: vagina [place] mg/gram 00 SEE-INSTRU Medica l vaginal CTIONS. Branch cream Apply small amount to vaginal opening and labia twice weekly conjugated 2020-0 Yes [id number] 1g Insert 1 g [facility] estrogens 9-14 into ity of 0.625 00:00: vagina [place] mg/gram 00 SEE-INSTRU Medica l vaginal CTIONS. Branch cream Apply small amount to vaginal opening and labia twice weekly conjugated 2020-0 Yes [id number] 1g Insert 1 g [facility] estrogens 9-14 into ity of 0.625 00:00: vagina [place] mg/gram 00 SEE-INSTRU Medica l vaginal CTIONS. Branch cream Apply small amount to vaginal opening and labia twice weekly conjugated 2020-0 Yes [id number] 1g Insert 1 g [facility] estrogens 9-14 into ity of 0.625 00:00: vagina [place] mg/gram 00 SEE-INSTRU Medica l vaginal CTIONS. Branch cream Apply small amount to vaginal opening and labia twice weekly conjugated 2020-0 Yes [id number] 1g Insert 1 g [facility] estrogens 9-14 into ity of 0.625 00:00: vagina [place] mg/gram 00 SEE-INSTRU Medica l vaginal CTIONS. Branch cream Apply small amount to vaginal opening and labia twice weekly conjugated 2020-0 Yes [id number] 1g Insert 1 g [facility] estrogens 9-14 into ity of 0.625 00:00: vagina [place] mg/gram 00 SEE-INSTRU Medica l vaginal CTIONS. Branch cream Apply small amount to vaginal opening and labia twice weekly conjugated 2020-0 Yes [id number] 1g Insert 1 g [facility] estrogens 9-14 into ity of 0.625 00:00: vagina [place] mg/gram 00 SEE-INSTRU Medica l vaginal CTIONS. Branch cream Apply small amount to vaginal opening and labia twice weekly conjugated 2020-0 Yes [id number] 1g Insert 1 g [facility] estrogens 9-14 into ity of 0.625 00:00: vagina [place] mg/gram 00 SEE-INSTRU Medica l vaginal CTIONS. Branch cream Apply small amount to vaginal opening and labia twice weekly conjugated 2020-0 Yes [id number] 1g Insert 1 g [facility] estrogens 9-14 into ity of 0.625 00:00: vagina [place] mg/gram 00 SEE-INSTRU Medica l vaginal CTIONS. Branch cream Apply small amount to vaginal opening and labia twice weekly conjugated 2020-0 Yes [id number] 1g Insert 1 g [facility] estrogens 9-14 into ity of 0.625 00:00: vagina [place] mg/gram 00 SEE-INSTRU Medica l vaginal CTIONS. Branch cream Apply small amount to vaginal opening and labia twice weekly conjugated 2019-0 Yes [id number] 1g Insert 1 g [facility] estrogens 9-14 into ity of 0.625 00:00: vagina [place] mg/gram 00 SEE-INSTRU Medica l vaginal CTIONS. Branch cream Apply small amount to vaginal opening and labia twice weekly conjugated Yes [id number] 1g Insert 1 g [facility] estrogens 9-14 into ity of 0.625 00:00: vagina [place] mg/gram 00 SEE-INSTRU Medica l vaginal CTIONS. Branch cream Apply small amount to vaginal opening and labia twice weekly conjugated Yes [id number] 1g Insert 1 g [facility] estrogens 9-14 into ity of 0.625 00:00: vagina [place] mg/gram 00 SEE-INSTRU Medica l vaginal CTIONS. Branch cream Apply small amount to vaginal opening and labia twice weekly conjugated 2022- No [id number] 1g Insert 1 g [facility] estrogens 9-14 05-02 into ity of 0.625 00:00: 00:00 vagina [place] mg/gram 00 :00 SEE-INSTRU Medica l vaginal CTIONS. Branch cream Apply small amount to vaginal opening and labia twice weekly conjugated 2022- No [id number] 1g Insert 1 g [facility] estrogens 9-14 [...] 13:41: nightly. [facility] 57 l zolpidem Yes 5mg QD Take 5 mg Meth [...] Hospi ta tablet 57 daily. l gabapentin 2018-0 Yes 600mg QD Take 600 [facility] ([facility] 600 mg 00:00: [facility] tablet 00 nightly. l gabapentin 2018-0 Yes 600mg QD Take 600 [facility] ([facility]IN[facility]-[address] 600 mg 00:00: [facility] tablet 00 nightly. l gabapentin 2018-0 Yes 600mg QD Take 600 [facility] ([facility]URONTIN[facility] 5-[address] 600 mg 00:00: [facility] tablet 00 nightly. l gabapentin 2018-0 Yes 600mg QD Take 600 [facility] ([facility]ONTIN) 5-[address] 600 mg 00:00: mouth [facility] tablet 00 nightly. l Immunizations Ordered Filled Immunization Date Status Comments [facility] e Immunization Name Name [facility] 2022-02-28 Completed [facility] 00:00:00 [facility] 2022-02-28 Completed [facility] 00:00:00 [facility] 2022-02-28 Completed [facility] of 00:00:00 [facility] 2022-02-28 Completed [facility] of 00:00:00 [facility] 2022-02-28 Completed [facility] of 00:00:00 [facility] 2022-02-28 Completed [facility] of 00[facility]00:00 [facility] 2022-02-28 Completed [facility] of 00:00:00 [facility] 2022-02-28 Completed [facility] 00:00:00 [facility] 2022-02-28 Completed [facility] of 00:00:00 [facility] TD 2022-02-28 Completed [facility] of 00:00:00 [facility] TD 2022-02-28 [facility] 00:[facility]:00 [facility] TDAP 2022-02-28 Completed [facility] of 00:00:00 [facility] TDAP 2022-02-28 [facility] 00:00:00 [place] [facility] TDAP 2022-02-28 Completed [facility] of 00:00:00 [place] [facility] TDAP 2022-02-28 Completed [facility] of 00:00:00 [place] [facility] TDAP 2022-02-28 Completed [facility] of 00:00:00 [facility] TDAP 2022-02-28 Completed University of 00:00:00 [facility] TDAP 2022-02-28 Completed University of 00:00:00 [place] [facility] TDAP 2022-02-28 Completed [facility] of 00:00:00 [place] [facility] TDAP 2022-02-28 Completed [facility] of 00:00:00 [place] [facility] TDAP 2022-02-28 Completed [facility] of 00:00:00 [facility] TDAP 2022-02-28 Completed University of 00:00:00 [facility] TDAP 2022-02-28 Completed University of 00:00:00 [facility] TDAP 2022-02-28 Completed [facility] of 00:00:00 [facility] Vital Signs Vital Name Observation Time Observation Value Comments Source Systolic blood 2022-11-19 04:30:00 147 mm[Hg] Univer sity of pressure [facility] Diastolic blood 2022-11-19 04:30:00 77 mm[Hg] Unive rsity of pressure [facility] Heart rate 2022-11-19 04:30:00 63 /min [facility] Body temperature 2022-11-19 04:30:00 36.72 Suzi [facility] Respiratory rate 2022-11-19 04:30:00 18 /min [facility] Oxygen saturation in 2022-11-19 04:30:00 96 /min [facility] Arterial blood by [facility] Pulse oximetry [place] Body height 2022-11-18 23:44:00 167.6 cm [facility] Body weight 2022-11-18 23:44:00 84.823 kg [facility] BMI 2022-11-18 23:44:00 30.18 kg/m2 [facility] Systolic blood 2022-10-28 18:36:00 152 mm[Hg] Univer sity of pressure [facility] Diastolic blood 2022-10-28 18:36:00 88 mm[Hg] Unive rsity of pressure [place] [facility] Heart rate 2022-10-28 18:22:00 88 /min [facility] [place] [facility] Body temperature 2022-10-28 18:22:00 36.78 [facility] [place] [facility] Respiratory rate 2022-10-28 18:22:00 18 /min [facility] [place] [facility] Body height 2022-10-28 18:22:00 152.4 cm [facility] [place] [facility] Body weight 2022-10-28 18:22:00 83.915 kg [facility] [place] [facility] BMI 2022-10-28 18:22:00 36.13 kg/m2 [facility] [place] [facility] Systolic blood 2022-09-03 20:45:00 154 mm[Hg] Univer sity of pressure [place] [facility] Diastolic blood 2022-09-03 20:45:00 89 mm[Hg] Unive rsity of pressure [place] [facility] Heart rate 2022-09-03 20:36:00 92 /min [facility] [place] [facility] Body temperature 2022-09-03 20:36:00 37.22 [facility] [place] [facility] Respiratory rate 2022-09-03 20:36:00 19 /min [facility] [place] [facility] Body height 2022-09-03 20:36:00 152.4 cm [facility] [place] [facility] Branch Body weight 2022-09-03 20:36:00 84.823 kg [facility] BMI 2022-09-03 20:36:00 36.52 kg/m2 Universi ty [...] 2022-08-14 19:30:00 18 /min [facility] [place] [facility] Body height 2022-08-14 19:30:00 152.4 cm [facility] Body weight 2022-08-14 19:30:00 85.73 kg [facility] BMI 2022-08-14 19:30:00 36.91 kg/m2 [facility] Systolic blood 2022-07-31 17:18:00 168 mm[Hg] [facility] Diastolic blood 2022-07-31 17:18:00 96 mm[Hg] Unive [facility] Heart rate 2022-07-31 17:09:00 74 /min [facility] Body temperature 2022-07-31 17:09:00 36.83 Suzi Univ [facility] Respiratory rate 2022-07-31 17:09:00 18 /min [facility] Body height 2022-07-31 17:09:00 152.4 cm [facility] [place] [facility] [place] Body weight 2022-07-31 17:09:00 85.276 kg [facility] BMI 2022-07-31 17:09:00 36.72 kg/m2 [facility] Systolic blood 2022-05-08 03:00:00 163 mm[Hg] [facility] [place] [facility] Diastolic blood 2022-05-08 03:00:00 82 mm[Hg] [facility]ive [facility] [place] [facility] [place] Heart rate 2022-05-08 03:00:00 75 /min [facility] [place] [facility] [place] Respiratory rate 2022-05-08 03:00:00 23 /min [facility] Oxygen saturation in 2022-05-08 03:00:00 100 /min [facility] Arterial blood by [facility] Pulse oximetry Branch Body temperature 2022-05-08 00:38:00 36.28 Suzi [facility] Body height 2022-05-08 00:38:00 152.4 cm [facility] Body weight 2022-05-08 00:38:00 82.555 kg [facility] BMI 2022-05-08 00:38:00 35.54 kg/m2 [facility] Systolic blood 2022-02-28 23:57:00 135 mm[Hg] [facility] Diastolic blood 2022-02-28 23:57:00 77 mm[Hg] [facility] Heart rate 2022-02-28 23:57:00 101 /min [facility] Body temperature 2022-02-28 23:57:00 37 Suzi [facility] Respiratory rate 2022-02-28 23:57:00 18 /min [facility] Body height 2022-02-28 23:57:00 152.4 cm [facility] Body weight 2022-02-28 23:57:00 84.705 kg [facility] BMI 2022-02-28 23:57:00 36.47 kg/m2 [facility] Oxygen saturation in 2022-02-28 23:57:00 97 /min University of Arterial blood by [facility] Pulse oximetry Branch Systolic blood 2021-10-24 18:34:00 147 mm[Hg] [facility] Diastolic blood 2021-10-24 18:34:00 96 mm[Hg] [facility] Heart rate 2021-10-24 18:34:00 73 /min [facility] Respiratory rate 2021-10-24 18:34:00 18 /min [facility] Oxygen saturation in 2021-10-24 18:34:00 98 /min University of Arterial blood by [facility] Pulse oximetry Branch Body temperature 2021-10-24 16:09:00 36.83 Suzi [facility] Body height 2021-10-24 16:09:00 152.4 cm [facility] Body weight 2021-10-24 16:09:00 79.833 kg [facility] BMI 2021-10-24 16:09:00 34.37 kg/m2 [facility] Systolic blood 2021-10-18 14:00:00 169 mm[Hg] [facility] Diastolic blood 2021-10-18 14:00:00 79 mm[Hg] [facility] Heart rate 2021-10-18 14:00:00 72 /min [facility] Respiratory rate 2021-10-18 14:00:00 12 /min [facility] in 2021-10-18 14:00:00 96 /min University of Arterial blood by [facility] Pulse oximetry Branch Body temperature 2021-10-18 12:43:00 35.83 Suzi [facility] Body height 2021-10-18 12:43:00 152.4 cm [facility] Body weight 2021-10-18 12:43:00 79.833 kg [facility] BMI 2021-10-18 12:43:00 34.37 kg/m2 [facility] Systolic blood 2021-05-10 17:34:00 172 mm[Hg] [facility] Diastolic blood 2021-05-10 17:34:00 91 mm[Hg] [facility] Heart rate 2021-05-10 17:34:00 74 /min Universi ty [facility] Body temperature 2021-05-10 17:33:00 36.67 Suzi [facility] Respiratory rate 2021-05-10 17:33:00 16 /min [facility] Body weight 2021-05-10 17:33:00 81.738 kg [facility] BMI 2021-05-10 17:33:00 35.19 kg/m2 Universi ty [facility] Oxygen saturation in 2021-05-10 17:33:00 99 /min University of Arterial blood by [facility] Pulse oximetry [place] Procedures Procedure Date / Time Performing Clinician Source Performed CT ABDOMEN PELVIS W 2022-11-19 02:48:38 [facility] [place] [facility] LIPASE 2022-11-19 01:54:00 Ese Teran [facility] MAGNESIUM 2022-11-19 01:54:00 Ese Teran [facility] TROPONIN I 2022-11-19 01:54:00 Ese Teran [facility] COMP. METABOLIC PANEL 2022-11-19 01:54:00 Ese Teran [facility] ([id number]) Medical Branch CBC WITH DIFF 2022-11-19 01:54:00 Ese Teran [facility] URINALYSIS 2022-11-19 01:54:00 Ese Teran [facility] ASSIGNMENT OF BENEFITS 2022-11-19 00:13:05 Doctor Unassigned, No [facility] NOTICE OF PRIVACY 2022-11-18 23:18:45 Doctor Unassigned, No [facility] PRACTICES [facility] CONSENT/REFUSAL FOR 2022-11-18 23:17:37 Doctor Unassigned, No [facility] PATIENT FINANCIAL 2022-09-03 20:34:39 [facility] POCT URINALYSIS W/O 2022-08-14 19:37:00 Mirza Duong [facility] SPECIFIC GRAVITY [facility] US PELVIS COMPLETE WITH 2022-08-06 19:48:00 Mirza Duong [facility] TRANSVAGINAL [facility] ASSIGNMENT OF BENEFITS 2022-07-31 17:04:42 Doctor Unassigned, No [facility] CT ABDOMEN PELVIS W 2022-05-08 02:00:11 [facility] CONTRAST [facility] Branch LIPASE 2022-05-08 01:00:00 Christie [facility] COMP. METABOLIC PANEL 2022-05-08 01:00:00 Najma [place] Un [facility] ([id number]) [facility] CBC WITH DIFF 2022-05-08 01:00:00 Christie [facility] CONSENT/REFUSAL FOR 2022-05-08 00:21:53 Doctor Unassigned, No [facility] TDAP VACCINE, >11 YRS, 2022-03-01 00:02:47 Abby [facility] URINALYSIS 2021-10-24 16:21:00 Singer [facility] LIPASE 2021-10-18 13:06:00 Gay Lakhani [facility] COMP. METABOLIC PANEL 2021-10-18 13:06:00 Gay Lakhani [facility] ([id number]) Medical Branch CBC WITH DIFF 2021-10-18 13:06:00 Gay Lakhani [facility] URINALYSIS 2021-10-18 13:06:00 Gay Lakhani [facility] NOTICE OF PRIVACY 2021-10-18 12:41:39 Doctor Unassigned, No [facility] PRACTICES Name Medical Branch CONSENT/REFUSAL FOR 2021-10-18 12:34:32 Doctor Unassigned, No [facility] DIAGNOSIS AND TREATMENT Name Medical [place] Plan of Care Planned Activity Planned Date Details Comments Source Future Scheduled 2022-12-03 Screening [facility] Test 03:13:09 malignant neoplasm of colon (procedure) [code = 576377036] Future Scheduled 2022-12-03 Screening [facility] Test 03:13:09 malignant neoplasm of colon (procedure) [code = 265741069] Future Scheduled 2022-12-03 [facility] Test 03:13:09 malignant neoplasm of colon (procedure) [code = 067678722] Future Scheduled 2022-12-03 COVID-19 [facility] 03:13:09 [code = COVID-19 VACCINE (#1)] Future Scheduled 2022-12-03 BREAST CANCER [facility] Test 03:13:09 SCREENING [code = BREAST CANCER SCREENING] Future Scheduled 2022-12-03 [facility] Test 03:13:09 malignant neoplasm of colon (procedure) [code = 309853247] Future Scheduled 2022-12-03 [facility] Test 03:13:09 malignant neoplasm of colon (procedure) [code = 112444679] Future Scheduled 2022-12-03 SHINGLES VACCINES (1 [facility] 03:13:09 of 2) [code = SHINGLES VACCINES (1 of 2)] Future Scheduled 2022-12-03 65[facility] [facility] Test 03:13:09 VACCINE (1 - PCV) [code = 65+ PNEUMOCOCCAL VACCINE (1 - PCV)] Future Scheduled 2022-12-03 INFLUENZA VACCINE [facility] Test 03:13:09 [code = INFLUENZA VACCINE] Future Scheduled 2022-10-01 COVID-19 VACCINE (#1) [facility] Test 03:49:09 [code = COVID-19 VACCINE (#1)] Future Scheduled 2022-10-01 BREAST CANCER [facility] Test 03:49:09 SCREENING [code = BREAST CANCER SCREENING] Future Scheduled 2022-10-01 COLONOSCOPY SCREENING [facility] Test 03:49:09 [code = COLONOSCOPY SCREENING] Future Scheduled 2022-10-01 SHINGLES VACCINES (1 Met [facility] Test 03:49:09 of 2) [code = SHINGLES VACCINES (1 of 2)] Future Scheduled 2022-10-01 65+ [facility] 03:49:09 VACCINE (1 - PCV) [code = 65+ PNEUMOCOCCAL VACCINE (1 - PCV)] Future Scheduled 2022-10-01 INFLUENZA VACCINE [facility] Test 03:49:09 [code = INFLUENZA VACCINE] Future Scheduled 2022-02-26 HEPATITIS B VACCINES Met [facility] Test 03:19:32 (1 of 3 - 3-dose series) [code = HEPATITIS B VACCINES (1 of 3 - 3-dose series)] Future Scheduled 2022-02-26 COVID-19 VACCINE (#1) [facility] Test 03:19:32 [code = COVID-19 VACCINE (#1)] Future Scheduled 2022-02-26 BREAST CANCER [facility] Test 03:19:32 SCREENING [code = BREAST CANCER SCREENING] Future Scheduled 2022-02-26 COLONOSCOPY SCREENING [facility] Test 03:19:32 [code = COLONOSCOPY SCREENING] Future Scheduled 2022-02-26 SHINGLES VACCINES (1 [facility] Test 03:19:32 of 2) [code = SHINGLES VACCINES (1 of 2)] Future Scheduled 2022-02-26 65+ [facility]AL [facility] 03:19:32 VACCINE (1 - PCV) [code = 65+ PNEUMOCOCCAL VACCINE (1 - PCV)] Future Scheduled 2022-02-26 INFLUENZA VACCINE [facility] Test 03:19:32 [code = INFLUENZA VACCINE] Future Scheduled 2021-06-19 COVID-19 VACCINE (1) [facility] Test 02:39:11 [code = COVID-19 VACCINE (1)] Future Scheduled 2021-06-19 BREAST CANCER [facility] Test 02:39:11 SCREENING [code = BREAST CANCER SCREENING] Future Scheduled 2021-06-19 COLONOSCOPY [facility]CREENING [facility] Test 02:39:11 [code = COLONOSCOPY SCREENING] Future Scheduled 2021-06-19 SHINGLES VACCINES (#1) [facility] Test 02:39:11 [code = SHINGLES VACCINES (#1)] Future Scheduled 2021-06-19 65+ [facility] [facility] Test 02:39:11 VACCINE (1 of 1 - PPSV23) [code = 65+ PNEUMOCOCCAL VACCINE (1 of 1 - PPSV23)] Future Scheduled 2021-06-19 INFLUENZA VACCINE [facility] Test 02:39:11 [code = INFLUENZA VACCINE] Encounters Start End Encounter Admission Attending Care Care Encounter Source Date/Time Date/Time Type Type Clinicians Facility Department ID 2021-04-30 Emergency [facility] [id number] Univers 04:55:58 [facility] 2021-04-27 Emergency [facility] [id number] Univers 21:42:20 ity [facility] 2021-04-26 [facility] [id number] Univers 20:08:13 [facility] 2021-04-26 [facility] [id number] Univers 13:43:55 [facility] 2022-11-18 2022-11-18 Emergency [facility] [id number] Univers 18:45:00 23:55:00 ESE ity [facility] 2022-11-18 2022-11-18 Emergency [facility] 1.2.840.114 [id number] Univers 18:45:00 23:55:00 Ese BILLY 350.1.13.10 ity of [place] 4.2.7.2.686 [facility] [id number] [facility] 084 Branch 2022-11-18 2022-11-18 Orders Doctor GARCIA 1.2.840.114 [id number] Univers 00:00:00 00:00:00 Only Unassigned, BELEN 350.1.13.10 ity of [place] [facility] 4.2.7.2.686 [facility] [id number] [facility] 009 Branch 2022-11-04 2022-11-04 Telephone Adnini, [facility] [id number] Univers 00:00:00 00:00:00 Marcela Matos MARIAJOSE 350.1.13.10 it[place] [id number] Ne dical NAL [address] [place] [address] 2022-10-28 2022-10-28 Gas Singer 2, Adc Lab [facility] 1.2.840.114 [id number] Univers 15:30:00 15:45:00 Visit Marcela Velez 350.1.13.10 ity [facility] 4[place].2.[place] [id number] Ne dical NAL [address] [place] [address] 2022-10-28 2022-10-28 [facility] [id number] Univers 13:30:00 14:54:07 MARCELA abdifatah [facility] 2022-10-28 2022-10-28 [facility] 1.2.840.114 [id number] Univers 13:30:00 14:54:07 Visit Marcela Shawna BILLY 350.1.13.10 ity [facility] 4[place]2.7.2.[place] [id number] Ne dical NAL [address] [place] [address] 2022-09-18 2022-09-18 Telephone [facility] 1.2.840.114 [id number] Univers 00:00:00 00:00:00 Mirza GUSMANBONI 350.1.13.10 i ty [place].2.[place] [id number] Ne dical NAL [address] [place] [address] 2022-09-17 2022-09-17 Outpatient R AD [facility] [id number] Univers 15:00:00 15:23:24 MIRZA abdifatah [facility] 2022-09-17 2022-09-17 Gas Singer 2, Adc Lab [facility] 1.2.840.114 [id number] Univers 15:00:00 15:23:24 Visit Mirza Duong 350.1.13.10 ity [place].2.[place] [id number] Ne dical NAL [address] [place] [address] 2022-09-11 2022-09-11 Outpatient R [facility] [id number] Univers 13:00:00 13:00:00 ity [facility] 2022-09-03 2022-09-03 Outpatient R AD [facility] [id number] Univers 15:00:00 15:13:23 MIRZA ity [facility] 2022-09-03 2022-09-03 Office Ad [facility] [id number] [id number] Univers 15:00:00 15:13:23 Visit Mirza BILLY 350.1.13.10 i ty [place] 4[place]2.7.2.[place] [id number] Ne dic[address] 2022-09-03 2022-09-03 Orders Doctor RADHA 1.2.840.114 [id number] Univers 00:00:00 00:00:00 Only Unassigned, BELEN 350.1.13.10 [facility] 4.2.7.2.686 Deep as [id number] [address] 2022-08-27 2022-08-27 Telephone [facility] 1.2.840.114 [id number] Univers 00:00:00 00:00:00 Mirza BILLY 350.1.13.10 i ty [place] [id number] Ne dic[address] 2022-08-22 2022-08-22 Refill [facility] 1.2.088.753 [id number] Univers 00:00:00 00:00:00 Mirza BILLY 350.1.13.10 i [place]2.[place] [id number] Ne dic[address] 2022-08-19 2022-08-19 Outpatient R AD [facility] [id number] Univers 00:00:00 00:00:00 MIRZA itbrea [facility] 2022-08-15 2022-08-15 Telephone [facility] 1.2.840.114 [id number] Univers 00:00:00 00:00:00 Mirza MARIAJOSE 350.1.13.10 i ty of [facility] 4[place]2.7.2.[place] [id number] [facility] [address] [facility] 2022-08-14 2022-08-14 Outpatient R AD [facility] [id number] Univers 13:00:00 13:47:24 MIRZA gardiner [facility] 2022-08-14 2022-08-14 Office [facility] 1.2.780.462 [id number] [facility] 13:00:00 13:47:24 Visit Mirza BILLY 350.1.13.10 i ty [place] 4[place].2.[place] [id number] [address] 2022-08-13 2022-08-13 [facility] [id number] Univers 14:00:00 15:51:58 MIRZA gardiner [facility] 2022-08-13 2022-08-13 Gas Singer 2, Adc Lab [facility] 1.2.840.114 [id number] Univers 14:00:00 14:15:00 Visit Mirza Duong 350.1.13.10 ity of [facility] 4.2.7.2.[place] [id number] [facility] [address] [facility] 2022-08-07 2022-08-07 Case [facility] 1.2.133.799 [id number] Univers 00:00:00 00:00:00 Management Mirza BILLY 350.1.13.10 ity [facility] 4.2.7.2.[place] [id number] [address] 2022-08-06 2022-08-06 Outpatient R AD [facility] [id number] Univers 12:13:34 23:59:00 MIRZA gardiner [facility] 2022-08-06 2022-08-06 [facility] 1.2.840.114 [id number] Univers 12:13:34 23:59:00 Encounter Mirza BILLY 350.1.13.10 [place].7.2.[place] [id number] [facility] 806 [place] 2022-08-04 2022-08-04 Telephone [facility] 1.2.840.114 [id number] Univers 00:00:00 00:00:00 Mirza BILLY 350.1.13.10 i ty [place].2.[place] [id number] Ne dic[address] 2022-07-31 2022-07-31 Outpatient R [facility] [id number] [facility] 11:30:00 11:50:44 MIRZA ity [facility] 2022-07-31 2022-07-31 Office [facility] [id number] [id number] [facility] 11:30:00 11:50:44 Visit Mirza BILLY 350.1.13.10 i ty [place] [id number] [address] 2022-07-31 2022-07-31 Orders Doctor RADHA 1.2.840.114 [id number] Univers 00:00:00 00:00:00 Only Unassigned, BELEN 350.1.13.10 ity of [place] [facility] 4.2.7.2.686 Edep as [id number] [facility] 009 [place] 2022-07-31 2022-07-31 Telephone [facility] 1.2.840.114 [id number] Univers 00:00:00 00:00:00 Mirza BILLY 350.1.13.10 i ty [place].2.[place] [id number] Ne dic[address] 2022-07-31 2022-07-31 Telephone [facility] 1.2.840.114 [id number] Univers 00:00:00 00:00:00 Mirza BILLY 350.1.13.10 i ty [place].2.[place] [phone] Ne dicshyanne NAL [address] BUILDING 2022-07-15 2022-07-15 Outpatient R AD [facility] [id number] Univers 11:15:00 11:15:00 MIRZA itbrea [facility] 2022-05-07 2022-05-07 Emergency X [facility] ERT [id number] Univers 18:31:00 21:18:00 VERONAJAVIER it y [facility] 2022-05-07 2022-05-07 [facility] 1.2.752.307 [id number] Univers 18:31:00 21:18:00 Najma BILLY 350.1.13.10 ity [facility] 4.2.7.2.[place] [id number] [place] 734[address] [place] 2022-02-28 2022-02-28 Dew[facility] 1.2.840.114 [id number] Univers 19:00:00 19:20:00 Care [facility] 350.1.13.10 it y [facility] 4.2.7.2.686 Deep as MENDOZA?BLEA [id number] Ne wiliam KNEY [address] [place] MEDICAL OFFICE BUILDING 2022-02-28 2022-02-28 Outpatient [facility] [id number] Univers 19:00:00 19:00:00 ABBY abdifatah [facility] 2021-10-24 2021-10-24 Emergency X [facility] ERT [id number] Univers 11:19:00 13:38:00 ROSLYN roachbrea [facility] 2021-10-24 2021-10-24 Emergency [facility] 1.2.492.382 [id number] Univers 11:19:00 13:38:00 Roslyn BILLY 350.1.13.10 ity [facility] 4[place]2.7.2.[place] [id number] [address] 2021-10-18 2021-10-18 Emergency X [facility] ERT [id number] Univers 07:39:00 10:02:00 GAY gardiner [facility] 2021-10-18 2021-10-18 Emergency [facility] [id number] Univers 07:39:00 10:02:00 Gay BILLY 350.1.13.10 ity of [place].7.2.[place] [id number] [facility] 084 [place] 2021-10-18 2021-10-18 Orders Doctor GARCIA 1.2.840.114 [id number] Univers 00:00:00 00:00:00 Only Unassigned, BELEN 350.1.13.10 it[place] of [place] [facility] 4.2.7.2.686 Deep as [id number] [facility] 009 [place] 2021-10-15 2021-10-15 Outpatient [facility] [id number] Univers 00:00:00 00:00:00 ISMAEL [facility] 2021-10-10 2021-10-10 Outpatient R [facility] [id number] Univers 17:34:44 23:59:00 [facility] 2021-10-10 2021-10-10 [facility] 1.2.840.114 [id number] Univers 17:34:44 23:59:00 Encounter Ismael Vale SPECIALTY 350.1.13.10 ity of [facility] 4.2.7.2.[place] C[place] AT [id number] Ne dical VICTORY 804 [facility] 2021-05-10 2021-05-10 Office Albina [facility] 1.2.840.114 [id number] Univers 11:17:34 12:07:47 Visit Radha BILLY 350.1.13.10 i ty of [place]2.7.2.[place] [id number] Me dical NAL [address] [facility] 2021-05-10 2021-05-10 Outpatient R ALBINA [facility] [id number] Univers 11:15:00 12:07:47 RADHA gardiner [facility] 2021-05-10 2021-05-10 Orders Doctor GARCIA 1.2.840.114 [id number] Univers 00:00:00 00:00:00 Only Unassigned, BELEN 350.1.13.10 ity of [place] [facility] 4.2.7.2.686 Deep as [id number] [facility] 009 [place] 2021-04-04 2021-04-04 Emergency [facility] 1.2.840.114 [id number] Univers 13:03:00 14:49:00 Jeff Mariajose 350.1.13.10 i ty of [place].2.[place] [id number] [facility] 084 [place] 2021-03-30 2021-03-30 Alyssa [facility] 1.2.840.114 [id number] Univers 00:00:00 00:00:00 (Out) Radha Billy 350.1.13.10 i ty of [place] 4[place]2.7.2.686 [place] [facility] [id number] Ne dical [address] 2021-03-29 2021-03-29 Outpatient Daquan JACOME [facility] [id number] Univers 10:30:00 10:30:00 RADHA gardiner [facility] 2021-03-28 2021-03-28 Orders Doctor RADHA 1.2.840.114 [id number] Univers 00:00:00 00:00:00 Only Unassigned, BLEEN 350.1.13.10 ity of [place] [facility] 4.2.7.2.686 Deep as [id number] [facility] 009 [place] 2021-03-27 2021-03-27 Outpatient Daquan VELEZ [facility] [id number] Univers 15:30:00 15:30:00 MARCELA gardiner of [facility] 2021-02-21 2021-02-21 RADHA Moreau 1.2.840.114 [id number] Univers 00:00:00 00:00:00 (Out) Ashleigh GLOVER 350.1.13.10 it y of [facility] 4.2.7.2.686 Deep as [id number] [facility] 019 [place] 2021-02-21 2021-02-21 Telephone Provider, [facility] 1.2.840.114 [id number] Univers 00:00:00 00:00:00 [facility] 350.1.13.10 ity of Care [place] 4.2.7.2.686 Deep as Mendoza?Blea [phone] [address] Office Building 2021-02-19 2021-02-19 Laboratory Only, Ang Db Test [facility] 1.2.8 40.114 [id number] Univers 15:54:13 16:04:13 Only Abby Rivera [facility] 350.1.13.10 ity of [place] 4.2.7.2.686 Deep as Mendoza?Blea [phone] [address] Office Building 2021-02-19 2021-02-19 Outpatient R MARVIN [facility] [id number] Univers 15:50:00 15:50:00 ABBY [facility] 2021-02-19 2021-02-19 Letter Doctor RADHA 1.2.840.114 [id number] Univers 00:00:00 00:00:00 (Out) Unassigned, [place] 350.1.13.10 ity of [place] [facility] 4.2.7.2.686 Deep as [phone] [address] 2020-11-05 2020-11-05 Outpatient R ROBERT [facility] [id number] Univers 11:15:00 11:15:00 TASH marleybrea [facility] 2020-07-24 2020-07-17 Inpatient EMELINA Rahman STACY MDAY [id number] [facility] 11:30:00 12:15:[address] [facility] 2020-06-26 2020-07-12 Inpatient EMELINA Rahman STACY MDAY [id number] [facility] 06:44:00 20:09:[address] [facility] 2020-07-10 2020-07-10 Laboratory Lab, [facility] 1.2.840.114 [id number] 16:18:49 16:38:49 Only [facility] 350.1.13.10 [place] 4.2.7.2.686 Professio [phone] [place] [address] Office [facility] One 2020-07-10 2020-07-10 Outpatient R JORDAN [facility] [id number] Univers 16:15:00 16:15:00 GEETA gardiner [facility] 2020-05-16 2020-05-16 [facility] Javier Goldsmith [facility] 1.2.840.114 [id number] 15:59:17 23:59:00 Encounter Tami Billy 350.1.13.10 [place] 4.2.7.2.686 [place] [id number] 2020-05-16 2020-05-16 Outpatient R JAVIER GOLDSMITH [facility] [id number] Univers 00:00:00 00:00:00 [facility] 2020-05-14 2020-05-14 Office Brandi [facility] 1.2.840.114 [id number] 14:07:10 16:11:34 Visit Rm, Adc Surg Spec Procedure Mariajose 3 50.1.13.10 [place] 4.2.7.2.686 Professio [phone] [facility] 204 [facility] 2020-05-14 2020-05-14 [facility] [id number] Univers 14:30:00 14:30:00 [facility] 2020-05-14 2020-05-14 Telephone [facility] 1.2.840.114 [id number] 00:00:00 00:00:00 Lg Billy 350.1.13.10 [place] 4.2.7.2.686 [facility] [phone] [facility] 188 [facility] 2020-05-14 2020-05-14 Orders Doctor RADHA 1.2.840.114 [id number] 00:00:00 00:00:00 Only Unassigned, BELEN 350.1.13.10 [place] [facility] 4.2.7.2.686 [id number] 2020-05-07 2020-05-07 [facility] [id number] Univers 13:00:00 13:00:00 [facility] 2020-04-12 2020-04-12 Outpatient R BRANID [facility] [id number] Univers 13:30:00 13:30:00 [facility] 2020-04-06 2020-04-06 [facility] [id number] Univers 11:00:00 11:00:00 RADHA [facility] 2020-03-26 2020-03-26 Outpatient R ROBERT [facility] [id number] Univers 00:00:00 00:00:00 TASH [facility] 2020-03-23 2020-03-23 Outpatient R JOSE, [facility] [id number] Univers 14:00:00 14:00:00 MARCELA [facility] 2020-03-12 2020-03-12 Outpatient R BRANDI, [facility] [id number] Univers 16:00:00 16:00:00 LG [facility] 2020-03-09 2020-03-09 [facility] [id number] Univers 11:00:00 11:00:00 RADHA [facility] 2020-03-02 2020-03-02 [facility] [id number] Univers 10:30:00 10:30:00 RADHA [facility] 2019-11-30 2019-11-30 Outpatient R [facility] [id number] Univers 10:00:00 10:00:00 [facility] Results Test Description Test Time Test Comments Results Result Comments Source TROPONIN I 2022-11-19 02:44:47 Test Item Value Reference Range Interpretation Comme nts TROPONIN I (test code = 4717696634) <=0.034 TICO (test code = TICO) Reference [...] biotin. Lab Interpretation (test code = Normal 31826-3) [facility]34[facility]03 Test Item Value Reference Range Interpretation Comments MAGNESIUM (test code = 8624434321) 2.4 mg/dL 1.7-2.4 Lab Interpretation (test code = Normal 13589-5) [facility]. METABOLIC PANEL ([id number])2022-11-19 02:33:42 Test Item Value Reference Range Interpretation Comments NA (test code = 141 mmol/L 135-145 1734849777) K (test code = 3.9 mmol/L 3.5-5.0 6538731140) CL (test code = 103 mmol/L 98-108 6702332169) CO2 TOTAL (test code = 27 mmol/L 23-31 5636797264) AGAP (test code = 11 2-16 9016888298) BUN (test code = 25 mg/dL 7-23 H 0391569537) GLUCOSE (test code = 109 mg/dL 70-110 0374193027) CREATININE (test code = 0.82 mg/dL 0.50-1.04 1095606167) TOTAL BILI (test code = 0.4 mg/dL 0.1-1.2 5449665352) CALCIUM (test code = 9.6 mg/dL 8.6-10.6 7264654299) T PROTEIN (test code = 6.9 g/dL 6.3-8.2 0790854442) ALBUMIN (test code = 4.3 g/dL 3.5-5.0 9360985481) ALK PHOS (test code = 80 U/L 34-122 8635752401) ALTv (test code = 17 U/L 5-35 1742-6) AST(SGOT) (test code = 20 U/L 13-40 9963801807) eGFR (test code = 68.5 mL/min/1.73m2 2578793215) TICO (test code = TICO) Association of [...] tests). Lab Interpretation Abnormal (test code = 08324-2) [facility] 02:33:22 Test Item Value Reference Range Interpretation Comments LIPASE (test code = 1775215955) 81 U/L 0-220 Lab Interpretation (test code = Normal 13283-0) [facility] WITH [id number] 02:24:05 Test Item Value Reference Range Interpretation Comments WBC (test code = 8.98 See_Comment [Automated message] 4026-2) The system [employer] generated this result transmitted ref erence range: 4.30 - 1 1.10 10*3/?L. The re ference range was not u sed to interpret this result as normal/abnor mal. RBC (test code = 4.51 See_Comment [Automated message] 378-8) The system [employer] generated this result transmitted ref erence range: [...] RDW-SD (test code 44.5 fL 39.0-49.9 = 38819-2) RDW-CV (test code 13.6 % 12.0-15.5 = 788-0) PLT (test code = 326 See_Comment [Automated message] 777-3) The system [employer] h generated this result transmitted ref erence range: 166 - 35 8 10*3/?L. The re ference range was not u sed to interpret this result as normal/abnor mal. MPV (test code = 10.2 fL 9.5-12.9 71843-8) NRBC/100 WBC (test 0.0 See_Comment [Automat ed message] code = 7971987330) The syste m which generated this result transmitted ref erence range: 0.0 - 10 .0 /100 WBCs. The refer ence range was not u sed to interpret this result as normal/abnor mal. NRBC x10^3 (test See_Comment [Automated message] code = 4888625717) The syste m which generated this result transmitted ref erence range: 10*3/?L. The reference range was not used to interpr et this result as normal/abnormal . GRAN MAT (NEUT) % 76.8 % (test code = 770-8) IMM GRAN % (test 0.30 % code = 6510536353) LYMPH % (test code 15.1 % = 736-9) MONO % (test code 5.1 % = 5905-5) EOS % (test code = 2.3 % 713-8) BASO % (test code 0.4 % = 706-2) GRAN MAT 6.88 10*3/uL 1.88-7.09 x10^3(ANC) (test code = 3136381763) IMM GRAN x10^3 0.03 10*3/uL 0.00-0.06 (test code = 8564088990) LYMPH x10^3 (test 1.36 10*3/uL 1.32-3.29 code = 731-0) MONO x10^3 (test 0.46 10*3/uL 0.33-0.92 code = 742-7) EOS x10^3 (test 0.21 10*3/uL 0.03-0.39 code = 711-2) BASO x10^3 (test 0.04 10*3/uL 0.01-0.07 code = 704-7) [facility] URINALYSIS W/O SPECIFIC [id number] 19:37:00 Test Item Value Reference Range Interpretation [...] code = 3257) trace Negative - Negative [facility] URINALYSIS W/O SPECIFIC [id number] 19:37:00 Test Item Value Reference Range Interpretation [...] code = 3257) trace Negative - Negative [facility] METABOLIC PANEL ([id number])2021-10-18 13:29:12 Test Item Value Reference Range Interpretation Comments NA (test code = 142 mmol/L 135-145 8814738119) K (test code = 4.4 mmol/L 3.5-5.0 7856560181) CL (test code = 103 mmol/L 98-108 4786837776) CO2 TOTAL (test code 29 mmol/L 23-31 = 3513781991) AGAP (test code = 2-16 2076286634) BUN (test code = 22 mg/dL 7-23 6135528862) GLUCOSE (test code = 104 mg/dL 70-110 0614158263) CREATININE (test code 0.79 mg/dL 0.50-1.04 = 9548117788) TOTAL BILI (test code 0.4 mg/dL 0.1-1.1 = 5311077121) CALCIUM (test code = 9.3 mg/dL 8.6-10.6 2327736840) T PROTEIN (test code 7.0 g/dL 6.3-8.2 = 7627197149) ALBUMIN (test code = 4.5 g/dL 3.5-5.0 7571273663) ALK PHOS (test code = 67 U/L 34-122 1365228198) ALTv (test code = 13 U/L 5-35 2-6) AST(SGOT) (test code 20 U/L 13-40 = 9938112391) eGFR (test code = mL/min/1.73m2 7865215261) TICO (test code = TICO) Association of [...] or urine or abnormalities in imaging tests). [facility] 13:28:52 Test Item Value Reference Range Interpretation Comments LIPASE (test code = 6159553854) 61 U/L 0-220 Lab Interpretation (test code = Normal 08985-4) [facility] WITH [id number] 13:18:11 Test Item Value Reference Range Interpretation Comments WBC (test code = See_Comment [Automated message] 6690-2) The system [employer] generated this result transmitted ref erence range: 4.30 - 1 1.10 10*3/?L. The re ference range was not u sed to interpret this result as normal/abnor mal. RBC (test code = See_Comment [Automated message] 789-8) The system [employer] generated this result transmitted ref erence range: [...] RDW-SD (test code 46.3 fL 39.0-49.9 = 97137-3) RDW-CV (test code 13.5 % 12.0-15.5 = 788-0) PLT (test code = See_Comment [Automated message] 777-3) The system [employer] generated this result transmitted ref erence range: 166 - 35 8 10*3/?L. The re ference range was not u sed to interpret this result as normal/abnor mal. MPV (test code = 9.8 fL 9.5-12.9 04019-9) NRBC/100 WBC (test See_Comment [Automat ed message] code = 9821600747) The syste m which generated this result transmitted ref erence range: 0.0 - 10 .0 /100 WBCs. The refer ence range was not u sed to interpret this result as normal/abnor mal. NRBC x10^3 (test <0.01 See_Comment [Automated message] code = 9956469910) The syste m which generated this result transmitted ref erence range: 10*3/?L. The reference range was not used to interpr et this result as normal/abnormal . GRAN MAT (NEUT) % 68.4 % (test code = 770-8) IMM GRAN % (test 0.40 % code = 8514763620) LYMPH % (test code 19.0 % = 736-9) MONO % (test code 6.7 % = 5905-5) EOS % (test code = 4.8 % 713-8) BASO % (test code 0.7 % = 706-2) GRAN MAT 5.03 10*3/uL 1.88-7.09 x10^3(ANC) (test code = 1672694068) IMM GRAN x10^3 0.03 10*3/uL 0.00-0.06 (test code = 3462649476) LYMPH x10^3 (test 1.40 10*3/uL 1.32-3.29 code = 731-0) MONO x10^3 (test 0.49 10*3/uL 0.33-0.92 code = 742-7) EOS x10^3 (test 0.35 10*3/uL 0.03-0.39 code = 711-2) BASO x10^3 (test 0.05 10*3/uL 0.01-0.07 code = 704-7) [facility] [id number] 15:53:00 Test Item Value Reference Range Interpretation [...] mg/dl 8.0-10.5 N COVID 19 Asymptomatic IH [id number] 15:45:00 Test Item Value Reference Range Interpretation Comments COVID 19 NEGATIVE NEGATIVE Negative result s should be Asymptomatic IH AG treated a s presumptive and (test code = ifinconsistent with COVNONPUIAG) clinical signs and symptoms, or ne cessaryfor patient managem ent, should be tested with an alternativemole cular assay. Negative results do not preclude CIQE-DoV-5guiok tion and should not be u sed as the sole basis forp atient management deci sions. Negative result s should beconsidered in the context of a pa tient's recent exposure s,history, presence of cli nical signs and symptoms consistentwith COVID-19. Specimen comments: [facility] not [facility] [id number] 15:43:00 Test Item Value Reference Range Interpretation [...] 0.00-0.01 N NRBC#) COVID 19 Asymptomatic IH [id number] 07:56:00 Test Item Value Reference Range Interpretation Comments COVID 19 Asymptomatic IH POSITIVE NEGATIVE A BY [id number] 06/26/20 AG (test code = 0756 COVNONPUIAG) Specimen comments: If not done this admissionComments to [place] [employer] Guide: RAPID COVID Notes Date/Time Note Provider Source 2020-07-24 10:32:00-00:00 [id number] [facility] and [place] [address] [place], [place] [address] PATIENT NAME: BRUNO SIMMONS ADMIT DATE: 06/30 12/17 ACCOUNT NO: [id number] DISCHARGE DATE: 1 ROOM NO: REPORT TYPE: [...] small cyst excisions. SURGEON: Carlos Rahman MD AIR DEODORIZER SERVICER: Jignesh Bui, licensed surgical as sistant. ANESTHESIA: General. BLOOD LOSS: Minimal. COMPLICATIONS: None. INDICATIONS: A 70-year-old with persistent pain and swelling ____ around de Quervain's compartment that failed conservative treatment. She wished to proceed with surgical intervention. Risks, benef its, and complications were discussed and she wished to [facility]. PROCEDURE IN DETAIL: After s he was [...] and once hemostasis PATIENT NAME: BRUNO SIMMONS [id number] was obtained ____ with interrupted 3-0 P rolene. It was then dressed sterilely. She was awakened and moved back to the recovery room in stable condition. Dictated By: Carlos Rahman MD WT: OP:ENANDO/DANIELLA/BRADLEY Conf#: [id number]/DID#: [id number] Authenticated by Carlos Rahman MD On 07:09:52 AM at 0710 PATIENT NAME: BRUNO SIMMONS [id number] 2020-06-26 08:06:00-00:00 [facility] [address] [address] ELECTROCARDIOGRAM Patient: BRUNO SIMMONS Unit #: [id number] Sex/Age: F 70 : 50 Admit Date: Location: [facility] Physician: Carlos Rahman MD Room/Bed: Order: [id number] Test Reason : PROCEDURE Test Date/Time Stamp: [...] evident in [place] t[place] leads Confirmed by MICHAEL LEONARD, [facility] ([id number]) on 2019 2:08:25 PM Referred By: Carlos Rahman Confirmed by:ALEJANDRO SERNA MD at 1408 dd/t: 06/26/20 0806"
[2022-12-03 15:23] LABS: Absolute Lymphocytes (CBC) 1.3 K/uL (0.7-4.9); Hematocrit 38.3 % (36.0-45.0); Lymphocytes % 15.2 % (15.3-44.8); MPV 7.9 fL (7.6-11.3); RBC Red Blood Cell Count 4.35 M/uL (3.86-4.86)
[2022-12-03 15:39] LABS: Albumin 3.8 g/dL (3.4-5.0); Bilirubin Total 0.3 mg/dL (0.2-1.0); Potassium 3.7 mEq/L (3.5-5.1); Protein, Total 7.2 g/dL (6.4-8.2)
--- NOTE | 2022-12-03 15:40 | RAD REPORT ---
EXAM DESCRIPTION: US - Abdomen Exam Limited - 12/03/2022 3:30 pm CLINICAL HISTORY: ABD PAIN COMPARISON: Abdomen Pelvis W Contrast dated 11/23/2022 TECHNIQUE: Sonographic grayscale and color flow images of the right upper abdominal quadrant were obtained. FINDINGS: The gallbladder is slightly contracted, limiting evaluation, but demonstrates no sludge or gallstones. No pericholecystic fluid or gallbladder wall thickening. The common bile duct is normal measuring 3 mm. The liver demonstrates no findings of intrahepatic biliary dilatation. IMPRESSION: Negative sonographic evaluation of the right upper abdominal quadrant.
[2022-12-03] MEDS ORDERED: ONDANSETRON 4 MG/2 ML VIAL ONE (16:34)
[2022-12-03] MEDS ORDERED: FAMOTIDINE 20 MG/2 ML VIAL IV ONE (16:34)
--- NOTE | 2022-12-03 16:42 | RAD REPORT ---
EXAM DESCRIPTION: CT - Abdomen Pelvis W Contrast - 12/03/2022 4:23 pm CLINICAL HISTORY: ABD PAIN COMPARISON: Abdomen Pelvis W Contrast dated 11/23/2022; Abdomen Pelvis W Contrast dated 03/09/2022 ; Abdomen Pelvis W Contrast dated 11/24/2019; Abdomen Pelvis W Contrast dated 04/10/2016 TECHNIQUE: Thin cut axial CT imaging of the abdomen and pelvis was performed following intravenous a dministration of 100 mL Isovue 300. Multiplanar reformats were generated and reviewed. All CT scans are performed using dose optimization technique as appropriate and may include automated exposure control or mA/KV adjustment according to patient size. FINDINGS: No suspicious findings in the lung bases. The liver, spleen, and pancreas show no suspicious findings. Gallbladder and biliary tree are also wi thout suspicious finding. Symmetric renal function is seen with no hydronephrosis or suspicious renal mass. Stable left parapel catherine cysts. No dilated bowel loops or bowel wall thickening. Sequelae of distal colon resection are again seen. A ppendix is unremarkable. Mild burden of colonic diverticula No free air, free fluid or inflammatory s tranding. No suspicious mass or bulky lymphadenopathy. Stable ventral supraumbilical fat containing hernia measures 2.4 centimeter in transverse dimension a t the neck. Diastasis recti. The urinary bladder is suboptimally distended, without significant finding. No suspicious bony findings. IMPRESSION: No acute intra-abdominal process. Incidental findings as above.
--- NOTE | 2022-12-03 17:23 | EDPHYS ---
Physician Documentation [facility] Name: Scarlet Simmons Age: 72 yrs Sex: Female : 1950 Arrival Date: 12/03/2022 Time: 14:38 Bed Treatment Private MD: ED Physician Atul May HPI: 12/03 15:08 This 72 yrs old Female presents to ER via Ambulatory with complaints of Pain on right ms3 side/vomitting. 15:08 72-year-old female with past medical history of bowel obstruction, hypothyroidism, ms3 intestinal rupture, neuropathy presents for right upper quadrant abdominal pain that began 1 month prior to arrival. Patient states pain is 10/10 described as being sharp. Patient states she was seen in the emergency department 1 week ago and discharged. Patient Dors is nausea, vomiting, fevers 100 F. Patient denies alleviating or inciting factors. Historical: - Allergies: 14:55 Latex, Natural Rubber; hb 14:55 Nitrofurantoin Macrocrystal; hb 14:55 Phenergan; hb 14:55 sulfamethoxazole-trimethoprim; hb - Home Meds: 14:55 levothyroxine oral [Active]; sertraline oral [Active]; hb - PMHx: 14:55 bowel obstruction; Hypothyroidism; Intestinal rupture; neuropathy; hb - PSHx: 14:55 Colostomy reversal; Colostomy; hb - Immunization history:: Adult Immunizations up to date. - Social history:: Smoking status: Patient denies any tobacco usage or history of. ROS: 15:08 Constitutional: Negative for fever, and chills. Neck: Negative for injury, pain, and ms3 swelling, Cardiovascular: Negative for chest pain, and palpitations. Respiratory: Negative for shortness of breath, cough, wheezing, and pleuritic chest pain. 15:08 Skin: Negative for injury, rash, and discoloration. 15:08 Abdomen/GI: Positive for abdominal pain, nausea and vomiting. 15:08 All other systems are negative. Exam: 15:08 Constitutional: This is a well developed, well nourished patient who is awake, alert, ms3 and in no acute distress. Head/Face: Normocephalic, atraumatic. Neck: Trachea midline, no cervical lymphadenopathy. Supple, full range of motion without nuchal rigidity, or vertebral point tenderness. No Meningismus. Chest/axilla: Normal chest wall appearance and motion. Nontender with no deformity. Cardiovascular: Regular rate and rhythm with a normal S1 and S2. No gallops, murmurs, or rubs. Normal PMI, no JVD. No pulse deficits. Respiratory: Lungs have equal breath sounds bilaterally, clear to auscultation and percussion. No rales, rhonchi or wheezes noted. No increased work of breathing, no retractions or nasal flaring. 15:08 Skin: Warm, dry with normal turgor. Normal color with no rashes, no lesions, and no evidence of cellulitis. MS/ Extremity: Pulses equal, no cyanosis. Neurovascular intact. Full, normal range of motion. 15:08 Abdomen/GI: Inspection: abdomen appears normal, Bowel sounds: normal, Palpation: moderate abdominal tenderness, in the right upper quadrant. Vital Signs: 14:53 BP 199 / 94; Pulse 88; Resp 18; Temp 99.5(O); Pulse Ox 97% on R/A; Weight 84.82 kg; hb Height 5 ft. 0 in. ; Pain 10/10; 14:53 Body Mass Index 36.52 (84.82 kg, 152.4 cm) hb 14:53 Pain Scale: Adult hb MDM: 15:04 Patient medically screened. ms3 15:08 Differential diagnosis: cholecystitis, Cholelithiasis, gastritis, non-specific abd pain.ms3 17:22 Data reviewed: vital signs, nurses notes, and as a result, I will discharge patient. I ms3 considered the following discharge prescriptions or medication management in the emergency department Medications were administered in the Emergency Department. See MAR. Counseling: I had a detailed discussion with the patient and/or guardian regarding: the historical points, exam findings, and any diagnostic results supporting the discharge/admit diagnosis, lab results, radiology results, the need for outpatient follow up, to return to the emergency department if symptoms worsen or persist or if there are any questions or concerns that arise at home. Special discussion: I discussed with the patient/guardian in detail that at this point there is no indication for admission to the hospital. It is understood, however, that if the symptoms persist or worsen the patient needs to return immediately for re-evaluation. ED course: On reevaluation patient is alert and oriented x4, no apparent distress, nontoxic-appearing, ambulatory in emergency department, tolerating p.o. Patient to follow-up as discussed. All questions were answered. Return precautions discussed include worsening symptoms, or any other concerns. 12/03 15:04 Order name: CBC with Diff; Complete Time: 15:43 ms3 12/03 15:04 Order name: CMP; Complete Time: 15:43 ms3 12/03 15:04 Order name: Lipase; Complete Time: 15:43 ms3 12/03 15:04 Order name: US Abdomen Limited; Complete Time: 15:43 ms3 12/03 15:44 Order name: CT Abd/Pelvis - IV Contrast Only; Complete Time: 17:01 ms3 12/03 15:04 Order name: IV Saline Lock; Complete Time: 15:15 ms3 12/03 15:04 Order name: Labs collected and sent; Complete Time: 15:15 ms3 Administered Medications: 16:31 Drug: Famotidine IVP 20 mg Route: IVP; Site: right antecubital; iw 16:32 Drug: Ondansetron IVP 4 mg Route: IVP; Site: right antecubital; iw Disposition Summary: 12/03/22 17:22 Discharge Ordered Location: Home ms3 Condition: Stable ms3 Diagnosis - Upper abdominal pain, unspecified ms3 Followup: ms3 - With: Luz Yang MD - When: 1 - 2 days - Reason: Recheck today's complaints Discharge Instructions: - Discharge Summary Sheet ms3 - Abdominal Pain, Adult ms3 Forms: - Medication Reconciliation Form ms3 - Thank You Letter ms3 - Antibiotic Education ms3 - Prescription Opioid Use ms3 Signatures: Dispatcher [employer] Carola Raya, RN ELOY iw Melly Gipson RN RN Atul Diaz, DO DO ms3
--- NOTE | 2022-12-03 17:23 | ER ---
Nurse's Notes [facility] Name: Scarlet Simmons Age: 72 yrs Sex: Female : 1950 Arrival Date: 12/03/2022 Time: 14:38 Bed Treatment Private MD: Diagnosis: Upper abdominal pain, unspecified Presentation: 12/03 14:53 Chief complaint: Intermittent RUQ pain and nausea x 2 weeks, vomit x 6 times today. Not hb tolerating fluids. Coronavirus screen: At this time, the client does not indicate any symptoms associated with coronavirus-19. Ebola Screen: No symptoms or risks identified at this time. Initial Sepsis Screen: Does the patient meet any 2 criteria? No. Patient's initial sepsis screen is negative. Does the patient have a suspected source of infection? No. Patient's initial sepsis screen is negative. Risk Assessment: Do you want to hurt yourself or someone else? Patient reports no desire to harm self or others. Onset of symptoms was November 18, 2022. 14:53 Method Of Arrival: Ambulatory hb 14:53 Acuity: YESY 3 hb Historical: - Allergies: 14:55 Latex, Natural Rubber; hb 14:55 Nitrofurantoin Macrocrystal; hb 14:55 Phenergan; hb 14:55 sulfamethoxazole-trimethoprim; hb - Home Meds: 14:55 levothyroxine oral [Active]; sertraline oral [Active]; hb - PMHx: 14:55 bowel obstruction; Hypothyroidism; Intestinal rupture; neuropathy; hb - PSHx: 14:55 Colostomy reversal; Colostomy; hb - Immunization history:: Adult Immunizations up to date. - Social history:: Smoking status: Patient denies any tobacco usage or history of. Screenin:17 [facility] ED Fall Risk Assessment (Adult) History of falling in the last 3 months, iw including since admission. Abuse screen: Denies threats or abuse. Denies injuries from another. Nutritional screening: No deficits noted. Tuberculosis screening: No symptoms or risk factors identified. Assessment: 17:17 Reassessment: Patient appears in no apparent distress at this time. Patient and/or iw family updated on plan of care and expected duration. Pain level reassessed. Patient is alert, oriented x 3, equal unlabored respirations, skin warm/dry/pink. Patient states feeling better. Patient states symptoms have improved. Vital Signs: 14:53 BP 199 / 94; Pulse 88; Resp 18; Temp 99.5(O); Pulse Ox 97% on R/A; Weight 84.82 kg; hb Height 5 ft. 0 in. ; Pain 10/10; 14:53 Body Mass Index 36.52 (84.82 kg, 152.4 cm) hb 14:53 Pain Scale: Adult hb ED Course: 14:39 Patient arrived in ED. ts1 14:42 Atul May DO is Attending Physician. ms3 14:55 Triage completed. hb 14:56 Arm band placed on. hb 15:32 US Abdomen Limited In Process Unspecified. EDMS 15:39 Carola Hummel, RN is Primary Nurse. iw 16:24 CT Abd/Pelvis - IV Contrast Only In Process Unspecified. EDMS 16:40 Inserted saline lock: 22 gauge antecubital area, using aseptic technique. iw 17:21 Luz Yang MD is Referral Physician. ms3 17:30 No provider procedures requiring assistance completed. IV discontinued, intact, kc6 bleeding controlled, No redness/swelling at site. Pressure dressing applied. Administered Medications: 16:31 Drug: Famotidine IVP 20 mg Route: IVP; Site: right antecubital; iw 16:32 Drug: Ondansetron IVP 4 mg Route: IVP; Site: right antecubital; iw Medication: 17:31 VIS not applicable for this client. kc6 Outcome: 17:22 Discharge ordered by . ms3 17:30 Discharged to home ambulatory. kc6 17:30 Condition: unchanged 17:30 Discharge instructions given to patient, Instructed on discharge instructions, follow up and referral plans. Demonstrated understanding of instructions, follow-up care. 17:31 Patient left the ED. kc6 Signatures: Dispatcher [employer] EDMS Carola Hummel RN RN Melly Gipson RN RN Atul May DO DO ms3 Mayte Garcia RN RN kc6 Nella Lindsay PAS PAS ts1
[2022-12-03 18:06] VITALS: BP 199/94; TEMP 99.5; O2SAT 97
== END 2022-12-03 17:31 | disposition home or self-care (01) ==
LOC: ER 14:38
DX: R10.11 Right upper quadrant pain (principal); R11.2 Nausea with vomiting, unspecified; Z88.2 Allergy status to sulfonamides; Z88.8 Allergy status to other drugs, medicaments and biological substances; Z91.040 Latex allergy status; K56.609 Unspecified intestinal obstruction, unspecified as to partial versus complete obstruction; E03.9 Hypothyroidism, unspecified; K63.1 Perforation of intestine (nontraumatic); G62.9 Polyneuropathy, unspecified
CPT/HCPCS: 85025; 36415; 83690; 80053; 74177; 76705; 96375; 96374; 99284; Q9967; J2405

== ENCOUNTER 2024-03-23 08:49 | Day surgery (SDC) | payer OTHER ==
[2024-03-23 09:48] LABS: Absolute Eosinophils 0.2 K/uL (0-0.5); Absolute Lymphocytes (CBC) 0.8 K/uL (0.7-4.9); Absolute Monocytes 0.4 K/uL (0.1-1.3); Absolute Neutrophil 8.8 K/uL (1.8-8.0); Basophils % 0.3 % (0-1.3); Eosinophils % 2.4 % (0-4.4); Hematocrit 37.4 % (36.0-45.0); Hemoglobin 12.4 g/dL (12.0-15.0); MCH 29.9 pg (27.0-35.0); MCHC 33.2 g/dL (32.0-36.0); MCV 89.8 fL (80-100); MPV 7.7 fL (7.6-11.3); Neutrophils % 85.3 % (41.7-73.7); Nucleated Red Blood Cells % 0.1 % (0-0); Platelets 278 thou/uL (152-406); RBC Red Blood Cell Count 4.17 M/uL (3.86-4.86); Red Cell Distribution Width 14.5 % (12.1-15.2)
[2024-03-23 09:51] LABS: PT Prothrombin Time 11.6 SECONDS (9.4-12.5); PTT, Activated Partial Thromb 30.6 SECONDS (24.3-36.9); Protime INR 1.04
[2024-03-23 10:05] LABS: ALT/SGPT 17 U/L (13-56); AST/SGOT 11 U/L (15-37); Albumin 3.5 g/dL (3.4-5.0); Albumin/Globulin Ratio 1.2 (1.1-1.8); Alkaline Phosphatase 87 U/L (45-117); Anion Gap 6.1 mEq/L (5.0-15.0); BUN Blood Urea Nitrogen 25 mg/dL (7-18); Bicarbonate 30 mEq/L (21-32); Bilirubin Total 0.3 mg/dL (0.2-1.0); Globulin 2.9 g/dL (2.3-3.5); Glomerular Filtration Rate 72 ml/min (=/>90); Glucose Level 133 mg/dL (74-106); Potassium 4.1 mEq/L (3.5-5.1); Protein, Total 6.4 g/dL (6.4-8.2); Sodium Level 142 mEq/L (136-145)
[2024-03-23 10:06] LABS: Bilirubin Direct < 0.2 mg/dL (0-0.2); Bilirubin Indirect, Calculated 0.1 mg/dL (0.2-0.8)
[2024-03-23 10:14] LABS: Blood Morphology Comment NOT SEEN (NOT SEEN); Platelet Estimate ADEQ; White Blood Cell Scan OK (OK)
[2024-03-23] MEDS ORDERED: DIAZEPAM 5 MG TABLET ONE (11:13)
[2024-03-23] MEDS: DIAZEPAM 5 MG TABLET PO ONE (11:16)
[2024-03-23 11:28] VITALS: BMI 37.5
[2024-03-23] MEDS ORDERED: HYDROCODONE/APAP 5/325 MG TAB ONE (12:09)
[2024-03-23] MEDS: HYDROCODONE/APAP 5/325 MG TAB PO ONE (12:11)
[2024-03-23 12:49] LABS: CSF Glucose 62 mg/dL (40-70)
[2024-03-23 12:59] LABS: Appearance CLEAR (CLEAR); Body Fluid Source CSF; Body Fluid WBC 0 /mm^3; Color of Supernate Not Xanthochromic (Not Xantho); Color of fluid Colorless (COLORLESS); Tube # #4
[2024-03-23 14:04] VITALS: BP 141/59; TEMP 97.7; O2SAT 98
[2024-04-01 13:40] LABS: BETA A 42/40 RATIO 0.14
--- NOTE | 2024-04-06 15:06 | RAD REPORT ---
XR SPINE LUMBAR PUNCTURE CLINICAL INDICATION: F03.90, E03.9, M19.90 TECHNIQUE: The risks (including the risks of bleeding, infection, headache, nerve injury), benefits, and alternatives of the procedure were carefully explained to the patient who wished to proceed. Informed written consent was obtained . The patient was placed prone into the fluoroscopy suite. Skin and subcutaneous tissues were anestheti zed with lidocaine Under fluoroscopic guidance a 22-gauge spinal needle was advanced into the thecal sac at the L3-4 lev el. Approximately 18 cc CSF removed and sent to the lab. Complications: None Fluoroscopy time 0.4 minutes One fluoroscopic spot image obtained IMPRESSION: Lumbar puncture
== END 2024-03-23 13:50 | disposition home or self-care (01) ==
LOC: DS 08:49
PROVIDERS: ATTEND Psychiatry & Neurology Neurology with Special Qualifications in Child Neurology
PROC: 009U3ZX Drainage of Spinal Canal, Percutaneous Approach, Diagnostic (ICD-10-PCS; principal; 2024-03-23)
PROC: B01BZZZ Fluoroscopy of Spinal Cord (ICD-10-PCS; 2024-03-23)
DX: F03.90 Unspecified dementia, unspecified severity, without behavioral disturbance, psychotic disturbance, mood disturbance, and anxiety (principal); M19.90 Unspecified osteoarthritis, unspecified site; E03.9 Hypothyroidism, unspecified
CPT/HCPCS: 36415; 62328; 77003; 80048; 80076; 82542; 82945; 84157; 85025; 85610; 85730; 89050

== ENCOUNTER 2024-08-18 18:38 | Emergency (ER) | payer OTHER ==
[2024-08-18 20:21] LABS: Absolute Eosinophils 0.2 K/uL (0-0.5); Absolute Lymphocytes (CBC) 1.3 K/uL (0.7-4.9); Absolute Monocytes 0.6 K/uL (0.1-1.3); Absolute Neutrophil 7.2 K/uL (1.8-8.0); Basophils % 0.4 % (0-1.3); Eosinophils % 2.3 % (0-4.4); Hematocrit 38.2 % (36.0-45.0); Hemoglobin 12.7 g/dL (12.0-15.0); Lymphocytes % 13.9 % (15.3-44.8); MCH 29.6 pg (27.0-35.0); MCHC 33.2 g/dL (32.0-36.0); MCV 89.2 fL (80-100); MPV 8.1 fL (7.6-11.3); Monocytes % 6.2 % (3.3-12.3); Neutrophils % 77.2 % (41.7-73.7); Platelets 259 thou/uL (152-406); RBC Red Blood Cell Count 4.29 M/uL (3.86-4.86); Red Cell Distribution Width 14.2 % (12.1-15.2)
[2024-08-18 20:32] LABS: PT Prothrombin Time 11.1 SECONDS (9.4-12.5); PTT, Activated Partial Thromb 25.2 SECONDS (24.3-36.9); Protime INR 1.06
[2024-08-18 20:39] LABS: ALT/SGPT 18 U/L (13-56); AST/SGOT 11 U/L (15-37); Albumin 3.2 g/dL (3.4-5.0); Alkaline Phosphatase 70 U/L (45-117); Anion Gap 5.9 mEq/L (5.0-15.0); BUN Blood Urea Nitrogen 22 mg/dL (7-18); Bicarbonate 29 mEq/L (21-32); Bilirubin Total 0.3 mg/dL (0.2-1.0); Globulin 3.1 g/dL (2.3-3.5); Glomerular Filtration Rate 58 ml/min (=/>90); Glucose Level 108 mg/dL (74-106); Magnesium 2.8 mg/dL (1.6-2.4); NT PRO-BNP 334 pg/mL (<125); Potassium 3.9 mEq/L (3.5-5.1); Protein, Total 6.3 g/dL (6.4-8.2); Sodium Level 142 mEq/L (136-145); Troponin High Sensitivity 7.8 pg/mL (<58.9)
[2024-08-18 20:44] LABS: Bilirubin Direct < 0.2 mg/dL (0-0.2); Bilirubin Indirect, Calculated 0.1 mg/dL (0.2-0.8)
[2024-08-18 20:51] LABS: Specific Gravity 1.026 (1.005-1.030); Sqamous Epithelial <5 /HPF (None Seen); Urine Bacteria <20 /HPF (<20); Urine Bilirubin NEGATIVE (Negative); Urine Blood Negative (Negative); Urine Clarity Clear (Clear); Urine Color Yellow (Yellow); Urine Crystals Unidentified Few /HPF (None Seen); Urine Culture Reflex Order NOT NEEDED; Urine Glucose NEGATIVE (Negative); Urine Ketones NEGATIVE (Negative); Urine Micro Reflex YN NO BILL MICROSCOPIC; Urine Mucus 1+ /HPF (None Seen); Urine Nitrite NEGATIVE (Negative); Urine Protein NEGATIVE (Negative); Urine RBC <5 /HPF (None Seen); Urine Urobilinogen Normal (Normal); Urine WBC <5 /HPF (<5); Urine WBC Clump Rare /HPF (None Seen); Urine Yeast (Budding) Trace /HPF (None Seen); Urine pH 5.5 (5.0-7.0)
--- NOTE | 2024-08-18 21:13 | RAD REPORT ---
EXAMINATION: ONE VIEW CHEST XR CLINICAL INDICATION: SOB TECHNIQUE: Frontal chest projection is submitted. Examination is limited by patient positioning and t echnique. COMPARISON: 08/12/2024 FINDINGS: The lungs are well inflated and clear. The heart is upper limit of normal in size. No displaced fract ures identified. IMPRESSION: No acute intrathoracic abnormalities.
--- NOTE | 2024-08-18 23:59 | RAD REPORT ---
EXAM: CT CHEST ANGIOGRAPHY WITH IV CONTRAST HISTORY: 4-year-old female with short of breath. TECHNIQUE: Axial CT angiographic images of the chest were performed after intravenous injection of co ntrast material contrast. The contrast bolus was triggered automatically. Images were post processed on a separate workstation and sent to PACS for interpretation. 3-D images were produced. Th e study was performed using dose reduction techniques including automated exposure control and/or adjustment of the mA and/or kV according to patient size, and/or iterative reconstruction techniques. COMPARISON: Chest x-ray report from 08/18/2024, and CT of the abdomen and pelvis report from 12/03/2022, images are currently unavailable. FINDINGS: There is no evidence of pulmonary artery filling defect to suggest the presence of a pulmonary thromb oembolic disease. No consolidation, pleural effusion, or pathologic adenopathy, based on size criteria. Mild bilateral scattered pulmonary subsegmental atelectasis and/or fibrosis. Airway is patent. Mild cardiomegaly, with atherosclerotic coronary artery calcifications. Mild atherosclerotic aortic calcifications. No thoracic aortic aneurysm. Mild to moderate multilevel spondylosis. Multilevel diffuse idiopathic skeletal hyperostosis. Small hiatal hernia. Mild nonspecific distal esophageal circumferential mural thickening, which can b e seen with inadequate distention and/or esophagitis. Surgical clips within the hepatogastric region. Partially visualized stomach demonstrates heterogeneo us nonspecific increased intraluminal attenuation, which can be seen with ingested material. Partially visualized lower lumbar spine fusion hardware on the single end sewer radiographs. IMPRESSION: 1. No CT evidence suggestive of pulmonary thromboembolic disease. 2. No consolidation or pathologic adenopathy based on size criteria. Mild bilateral scattered pulmona ry subsegmental atelectasis and/or fibrosis. 3. Small hiatal hernia. Electronically signed by: Tahir Costa MD 08/18/2024 11:55 PM ROOF TECHNICIAN Due to temporary technical issues with the PACS/[employer]ene[employer] reporting system, reports are being vanessa d by the in-house radiologist without review as a courtesy to ensure prompt reporting the interpreting radiologist is fully responsible for the content of the report. Transcribed Date/Time: 08/18/2024 11:59 PM
--- NOTE | 2024-08-19 00:10 | EDPHYS ---
Physician Documentation [facility] Name: Scarlet Simmons Age: 74 yrs Sex: Female : 1950 Arrival Date: 08/18/2024 Time: 18:38 Bed 18 Private MD: ED Physician Loi Galvan HPI: 08/18 20:00 This 74 yrs old Female presents to ER via Ambulatory with complaints of Breathing cp Difficulty, Back Pain, Dizziness. 20:00 The patient has shortness of breath with light activity. cp 20:00 Onset: The symptoms/episode began/occurred for past several months. Duration: The cp symptoms are intermittent. The patient's shortness of breath is aggravated by exertion. Associated signs and symptoms: Pertinent positives: dizziness, upper and lower back pain and weight gain, Pertinent negatives: chest pain, fever, vomiting. Severity of symptoms: in the emergency department the symptoms are unchanged despite home interventions. Historical: - Allergies: 18:56 Latex; ap3 18:56 Nitrofurantoin Macrocrystal; ap3 18:56 sulfamethoxazole-trimethoprim; ap3 18:56 Phenergan; ap3 18:56 honey; ap3 - PMHx: 18:56 bowel obstruction; Hypothyroidism; Intestinal rupture; neuropathy; ap3 - PSHx: 18:56 Colostomy; Colostomy reversal; shoulder sx (Colostomy reversal); delores knee; ap3 Cholecystectomy; - Immunization history:: Client reports receiving the 2nd dose of the Covid vaccine, Flu vaccine is not up to date. - Infectious Disease History:: Denies. - Social history:: Smoking status: Patient denies any tobacco usage or history of. ROS: 20:05 Respiratory: Positive for shortness of breath, Negative for cough, wheezing, cp 20:05 Constitutional: Negative for body aches, chills, fever, poor PO intake, cp 20:05 Cardiovascular: Negative for chest pain, edema, palpitations, 20:05 Abdomen/GI: Negative for abdominal pain, vomiting, diarrhea, constipation, cp 20:05 Back: Positive for pain at rest, pain with movement, 20:05 Neuro: Positive for dizziness, Negative for altered mental status, headache, syncope, near syncope, weakness, 20:05 All other systems are negative, Exam: 20:10 Constitutional: The patient appears in no acute distress, alert, awake, cp non-diaphoretic, non-toxic, well developed, well nourished, obese, 20:10 Head/Face: Normocephalic, atraumatic. cp 20:10 Eyes: Periorbital structures: appear normal, Conjunctiva: normal, no exudate, no injection, Sclera: no appreciated abnormality, Lids and lashes: appear normal, bilaterally, 20:10 ENT: External ear(s): are unremarkable, Nose: is normal, Mouth: Lips: moist, Oral mucosa: moist, Posterior pharynx: Airway: no evidence of obstruction, patent, 20:10 Chest/axilla: Inspection: normal, 20:10 Cardiovascular: Rate: bradycardic, Rhythm: regular, Edema: is not appreciated, JVD: is not appreciated, 20:10 Respiratory: the patient does not display signs of respiratory distress, Respirations: normal, no use of accessory muscles, no retractions, labored breathing, is not present, Breath sounds: are clear throughout, no decreased breath sounds, no stridor, no wheezing, 20:10 Abdomen/GI: Inspection: abdomen appears normal, Palpation: abdomen is soft and non-tender, in all quadrants, 20:10 Back: CVA tenderness, is absent, vertebral tenderness, is not appreciated, 20:10 Neuro: Orientation: to person, place \T\ time. Mentation: is normal, Motor: moves all fours, strength is normal, Sensation: no obvious gross deficits, 20:27 ECG was reviewed by the Attending Physician. cp Vital Signs: 18:54 BP 132 / 70; Pulse 58; Resp 18; Temp 98; Pulse Ox 100% ; Weight 90.72 kg; Height 5 ft. ap3 0 in. ; Pain 10/10; 20:15 BP 124 / 73; Pulse 67; Resp 20; Pulse Ox 96% ; me1 21:00 BP 130 / 71; Pulse 59; Resp 13; Pulse Ox 94% ; me1 22:00 BP 126 / 57; Pulse 71; Resp 17; Pulse Ox 96% ; me1 23:00 BP 127 / 78; Pulse 65; Resp 18; Pulse Ox 99% ; me1 23:30 BP 126 / 63; Pulse 63; Resp 18; Pulse Ox 96% ; me1 18:54 Body Mass Index 39.06 (90.72 kg, 152.4 cm) ap3 18:54 Pain Scale: Adult ap3 MDM: 19:16 Medical Screening Exam initiated cp 08/19 00:08 Data reviewed: vital signs, nurses notes, lab test result(s), EKG, radiologic studies, cp CT scan, plain films. 00:08 Differential diagnosis: CHF exacerbation, Chronic Obstructive Pulmonary Disease cp Myocardial Infarction pneumonia, Pneumothorax pulmonary edema, Pulmonary Embolism Unstable Angina. Counseling: I had a detailed discussion with the patient and/or guardian regarding the historical points, exam findings, and any diagnostic results supporting the discharge/admit diagnosis, lab results, radiology results, the need for outpatient follow up, an groundskeeper, a document preparation specialist, to return to the emergency department if symptoms worsen or persist or if there are any questions or concerns that arise at home. 08/18 19:53 Order name: Basic Metabolic Panel; Complete Time: 22:02 08/18 22:02 Interpretation: Normal except: CL 111; GLUC 108; BUN 22; GFR 58. 08/18 19:53 Order name: CBC with Diff; Complete Time: 22:02 08/18 19:53 Order name: LFT's; Complete Time: 22:02 08/18 19:53 Order name: Magnesium; Complete Time: 22:02 08/18 19:53 Order name: NT PRO-BNP; Complete Time: 22:02 08/18 19:53 Order name: PT-INR; Complete Time: 22:02 08/18 19:53 Order name: Troponin HS; Complete Time: 22:02 08/18 19:53 Order name: Ptt, Activated; Complete Time: 22:02 08/18 19:53 Order name: Urinalysis W/Microscopic; Complete Time: 22:02 08/18 19:53 Order name: XRAY Chest (1 view); Complete Time: 22:02 08/18 22:03 Order name: CT Chest For PE Angio 08/18 19:53 Order name: Cardiac monitoring; Complete Time: 20:25 08/18 19:53 Order name: EKG - Nurse/Tech; Complete Time: 20:25 08/18 19:53 Order name: IV Saline Lock; Complete Time: 20:13 08/18 19:53 Order name: Labs collected and sent; Complete Time: 20:13 02/20 19:53 Order name: O2 Per Protocol; Complete Time: 20:13 cp 08/18 19:53 Order name: O2 Sat Monitoring; Complete Time: 20:13 cp EC/20 20:27 Rate is 59 beats/min. Rhythm is regular. AR interval is normal. QRS interval is cp prolonged at 102 msec. QT interval is normal. T waves are Inverted in lead aVR. Interpreted by me. Reviewed by me. Administered Medications: No medications were administered Disposition: 08/19 05:21 Co-signature as Attending Physician, Loi Galvan MD I agree with the assessment sp4 and plan of care. I reviewed the patient's care provided by the Advanced Practice Provider and agree with the diagnosis and treatment plan. 08/20 00:15 Chart complete. cp Disposition Summary: 08/19/24 00:09 Discharge Ordered Notes: Location: Home cp Problem: new cp Symptoms: have improved cp Condition: Stable cp Diagnosis - Shortness of breath cp - Dorsalgia, unspecified cp Followup: cp - With: Duane Cole MD - When: 5 - 6 days - Reason: Recheck today's complaints Discharge Instructions: - Discharge Summary Sheet cp - Musculoskeletal Pain cp - Shortness of Breath, Adult cp Forms: - Medication Reconciliation Form cp - Antibiotic Education cp - Prescription Opioid Use cp - Patient Portal Instructions cp - Leadership Thank You Letter cp Prescriptions: - albuterol sulfate 90 mcg/actuation Inhalation HFA Aerosol Inhaler - inhale 1 puff INHALATION route every 4-6 hours administer with spacer; 1 unit; cp Refills: 0, Product Selection Permitted - Celebrex 200 mg Oral Capsule - take 1 capsule ORAL route once daily As needed take with food; 20 capsule; cp Refills: 0, Product Selection Permitted Signatures: Dispatcher [employer] EDMS Meet Márquez PA PA cp Abby Correa RN RN ap3 Loi Galvan MD MD sp4 Corrections: (The following items were deleted from the chart) 08/18 19:54 19:54 BASIC METABOLIC PANEL+C.LAB.BRZ ordered. EDMS EDMS 19:54 19:54 CBC+H.LAB.BRZ ordered. EDMS EDMS 19:54 19:54 HEPATIC FUNCTION+C.LAB.BRZ ordered. EDMS EDMS 19:54 19:54 MAGNESIUM+C.LAB.BRZ ordered. EDMS EDMS 19:54 19:54 PROBNP+C.LAB.BRZ ordered. EDMS EDMS 19:54 19:54 PROTIME (+INR)+COAG.LAB.BRZ ordered. EDMS EDMS : 19:54 Troponin High Sensitivity+C.LAB.BRZ ordered. EDMS EDMS 19:54 PTT, ACTIVATED+COAG.LAB.BRZ ordered. EDMS EDMS 19:54 Urinalysis W/Microscopic+U.LAB.BRZ ordered. EDMS EDMS 19:54 19:54 Chest Single View+RAD.RAD.BRZ ordered. EDMS EDMS
--- NOTE | 2024-08-19 00:10 | ER ---
Nurse's Notes [facility] Name: Scarlet Simmons Age: 74 yrs Sex: Female : 1950 Arrival Date: 08/18/2024 Time: 18:38 Bed 18 Private MD: Diagnosis: Shortness of breath;Dorsalgia, unspecified Presentation: 08/18 18:54 Chief complaint: Patient states: she has been having shortness of breath that has been ap3 getting worse for a few months. patient states "I have gained some weight over the last few months, I even had to buy some new warm clothes for the winter months because my clothes didn't fit." Patient also reports back pain that has also been getting worse over the last few months, that shoots down her left leg. patient currently rates her pain as a 10/10 on the pain scale. Coronavirus screen: At this time, the client does not indicate any symptoms associated with coronavirus-19. Ebola Screen: No symptoms or risks identified at this time. Initial Sepsis Screen: Does the patient meet any 2 criteria? No. Patient's initial sepsis screen is negative. Does the patient have a suspected source of infection? No. Patient's initial sepsis screen is negative. Risk Assessment: Do you want to hurt yourself or someone else? Patient reports no desire to harm self or others. Onset of symptoms is unknown. 18:54 Method Of Arrival: Ambulatory ap3 18:54 Acuity: YESY 3 ap3 Triage Assessment: 18:58 General: Appears in no apparent distress. Behavior is calm, cooperative, appropriate ap3 for age. Pain: Complains of pain in back and left leg Pain currently is 10 out of 10 on a pain scale. Pain began months ago. Neuro: Level of Consciousness is awake, alert, obeys commands, Oriented to person, place, time, situation, Appropriate for age. Cardiovascular: Patient's skin is warm and dry. Respiratory: Reports shortness of breath Airway is patent Respiratory effort is even, unlabored, Respiratory pattern is regular, symmetrical, Onset: The symptoms/episode began/occurred at an unknown time. the patient has mild shortness of breath. Historical: - Allergies: 18:56 Latex; ap3 18:56 Nitrofurantoin Macrocrystal; ap3 18:56 sulfamethoxazole-trimethoprim; ap3 18:56 Phenergan; ap3 18:56 honey; ap3 - PMHx: 18:56 bowel obstruction; Hypothyroidism; Intestinal rupture; neuropathy; ap3 - PSHx: 18:56 Colostomy; Colostomy reversal; shoulder sx (Colostomy reversal); delores knee; ap3 Cholecystectomy; - Immunization history:: Client reports receiving the 2nd dose of the Covid vaccine, Flu vaccine is not up to date. - Infectious Disease History:: Denies. - Social history:: Smoking status: Patient denies any tobacco usage or history of. Screenin:59 Abuse screen: Denies threats or abuse. Nutritional screening: No deficits noted. ap3 Tuberculosis screening: No symptoms or risk factors identified. Assessment: 19:49 General: Appears uncomfortable, obese, well groomed, well developed, Behavior is calm, me1 cooperative, appropriate for age, Reports she has been having shortness of breath that has been getting worse for a few months. patient states "I have gained some weight over the last few months, I even had to buy some new warm clothes for the winter months because my clothes didn't fit." Patient also reports back pain that has also been getting worse over the last few months, that shoots down her left leg. patient currently rates her pain as a 10/10 on the pain scale. Pain: Complains of pain in back Pain radiates to left leg Pain currently is 10 out of 10 on a pain scale. Quality of pain is described as sharp, shooting, Pain began gradually, Is continuous. Neuro: Level of Consciousness is awake, alert, obeys commands, Oriented to person, place, time, situation, Appropriate for age. Cardiovascular: Patient's skin is warm and dry. Respiratory: Reports shortness of breath at rest on exertion Airway is patent Respiratory effort is even, unlabored, Respiratory pattern is regular, symmetrical, Breath sounds are clear bilaterally. GI: No signs and/or symptoms were reported involving the gastrointestinal system. : No signs and/or symptoms were reported regarding the genitourinary system. EENT: No signs and/or symptoms were reported regarding the EENT system. Derm: Skin is intact, is healthy with good turgor, Skin is pink, warm \\T\\ dry. Musculoskeletal: No signs and/or symptoms reported regarding the musculoskeletal system. 23:59 Reassessment: No changes from previously documented assessment. Patient and/or family rg5 updated on plan of care and expected duration. Pain level reassessed. Patient is alert, oriented x 3, equal unlabored respirations, skin warm/dry/pink. Patient states symptoms have improved. Vital Signs: 18:54 BP 132 / 70; Pulse 58; Resp 18; Temp 98; Pulse Ox 100% ; Weight 90.72 kg; Height 5 ft. ap3 0 in. ; Pain 10/10; 20:15 BP 124 / 73; Pulse 67; Resp 20; Pulse Ox 96% ; me1 21:00 BP 130 / 71; Pulse 59; Resp 13; Pulse Ox 94% ; me1 22:00 BP 126 / 57; Pulse 71; Resp 17; Pulse Ox 96% ; me1 23:00 BP 127 / 78; Pulse 65; Resp 18; Pulse Ox 99% ; me1 23:30 BP 126 / 63; Pulse 63; Resp 18; Pulse Ox 96% ; me1 18:54 Body Mass Index 39.06 (90.72 kg, 152.4 cm) ap3 18:54 Pain Scale: Adult ap3 ED Course: 18:42 Patient arrived in ED. mr 18:56 Triage completed. ap3 18:59 Arm band placed on right wrist. ap3 19:14 Meet Márquez PA is PHCP. cp 19:14 Darion Carolina MD is Attending Physician. cp 19:43 Celine Ellsi, RN is Primary Nurse. me1 20:13 Ptt, Activated Sent. me1 20:13 Basic Metabolic Panel Sent. me1 20:13 CBC with Diff Sent. me1 20:13 LFT's Sent. me1 20:13 Magnesium Sent. me1 20:13 NT PRO-BNP Sent. me1 20:13 PT-INR Sent. me1 20:13 Troponin HS Sent. me1 20:13 Initial lab(s) drawn, by me, sent to lab. Inserted saline lock: 22 gauge in right me1 antecubital area, using aseptic technique. 20:26 EKG done, by ED staff, reviewed by Meet CAMERON. mm11 21:00 XRAY Chest (1 view) In Process Unspecified. EDMS 22:48 CT Chest For PE Angio In Process Unspecified. EDMS 23:46 Loi Galvan MD is Attending Physician. cp 02/21 00:08 Duane Cole MD is Referral Physician. cp 00:16 No provider procedures requiring assistance completed. IV discontinued, bleeding rg5 controlled, No redness/swelling at site. Pressure dressing applied. Administered Medications: No medications were administered Medication: 00:16 VIS not applicable for this client. rg5 Outcome: 00:09 Discharge ordered by MD. cp 00:16 Discharged to home ambulatory, rg5 00:16 Condition: stable 00:16 Discharge instructions given to patient, family, Instructed on discharge instructions, follow up and referral plans. Demonstrated understanding of instructions, follow-up care, medications, Prescriptions given X 2, 00:17 Patient left the ED. rg5 Signatures: Dispatcher [employer] EDMS ObrienEse, Reg Reg mr Meet Márquez, PA PA Abby Rodriguez RN RN ap3 Celine Ellis RN RN me1 Martin Mcdonald RN RN rg5 jayden menjivar mm11 Corrections: (The following items were deleted from the chart) 08/18 19:49 18:54 Chief complaint: Patient states: she has been having shortness of breath that has me1 been getting worse for a few months. patient states "I have gained some weight over the last few months, I even had to buy some new warm clothes for the winter months because my clothes didn't fit." Patient also reports back pain that has also been getting worse over the last few months, that shoots down her left leg. patient currently rates her pain as a 10/10 on the pain scale. ap3
[2024-08-19 22:27] VITALS: TEMP 98
[2024-08-19 22:34] VITALS: BP 126/63; O2SAT 96
--- NOTE | 2024-08-22 12:14 | EKG ---
Test Date: 2024-08-18 Test Time: 20:21:00 Ceramic Plater: DEEPTHI MEASUREMENT RESULTS: Intervals: Rate: 59 CT: 150 QRSD: 102 QT: 430 QTc: 425 [place]: P: 45 CT: 150 QRS: -42 T: 34 INTERPRETIVE STATEMENTS: Sinus bradycardia with occasional premature ventricular complexes Left axis deviation Abnormal ECG Compared to ECG 03/04/2023 08:18:16 Ventricular premature complex(es) now present Left-axis deviation now present Sinus rhythm no longer present Left anterior fascicular block no longer present Left ventricular hypertrophy no longer present Electronically Signed On 08-22-24 12:11:31 FIRE TECHNICIAN by Micha Mcfadden
== END 2024-08-19 00:17 | disposition home or self-care (01) ==
LOC: ER 18:38
DX: R06.02 Shortness of breath (principal); M54.9 Dorsalgia, unspecified; R42 Dizziness and giddiness
CPT/HCPCS: 93005; 85025; 81001; 80048; 36415; 83735; 85610; 80076; 85730; 84484; 83880; 71275; 71045; 99284; Q9967